=== PATIENT | female | born 1965 | race Caucasian/White ===

== ENCOUNTER 2016-08-01 19:05 | Emergency (ER) | payer OTHER ==
[~2016-08-01] VITALS: Ht 165.1 cm; Wt 98.0 kg
[~2016-08-01 19:05] MED LIST: ALBU1AER9 INH; BND25 PO; CETI10TA84 PO; EPIPEN0.3 M1 IM; OMEP40CA36 PO; QVRINH40 INH; TOPI100T34 PO; TRIA3AER NAE; [UNRECOGNIZED DRUG - CODE] OPB
[2016-08-01] MEDS ORDERED: SODIUM CHLORIDE 0.9% 1000ML 1,000 ML IV STA (19:12)
--- NOTE | 2016-08-01 19:21 | EMERGENCY ROOM VISIT NOTE ---
History Report prepared by Jing: Jorge Pinto Under the Supervision of: Dr. Rocky Love D.O. First contact with patient: 19:07 Chief Complaint: SHORTNESS OF BREATH Stated Complaint: SOB History of Present Illness The patient is a 51 year old female who presents to the Emergency Room via with complaints of persistent difficulty breathing for the past few days. The patient also complains of nausea, chest tightness and feeling like she is going to pass out. The patient notes that she has had cold-like symptoms for the past month and has been feeling fatigued since May. The patient is currently on Amoxicillin for her symptoms. Source of History: patient Onset: the past few days Position: other (global) Timing: other (persistent) Associated Symptoms: + fatigue, + nausea Note: Other associated symptoms: chest tightness, feeling like she is going to pass out, cold-like symptoms. Review of Systems See HPI for pertinent positives & negatives. A total of 10 systems reviewed and were otherwise negative. Past Medical & Surgical Medical Problems: (1) Seizure (2) Vertigo Family History Diabetes mellitus FH: heart disease Social History Smoking Status: Never Smoker Alcohol Use: none Drug Use: none Marital Status: Current/Historical Medications Scheduled Albuterol Hfa (Ventolin Hfa), 2-4 PUFFS INH Q6H Cetirizine Hcl (Zyrtec), 10 MG PO DAILY Diclofenac Sodium (Voltaren), 75 MG PO BID Diphenhydramine Hcl (Benadryl), 25 MG PO Q4H Divalproex Sodium (Divalproex Sodium Dr), 1 TAB PO DAILY Epinephrine (Epipen), 0.3 MG IM UD Ergocalciferol (Vitamin D 54495 Unit), 50,000 UNIT PO WK Fluticasone Propionate (Fluticasone Propionate), 2 SPRAYS NEB DAILY Levothyroxine Sodium (Levothyroxine Sodium), 1 TAB PO DAILY Pantoprazole (Protonix), 40 MG PO DAILY Ranitidine (Zantac), 150 MG PO BID Scheduled PRN Dextromethorphan-Guaifenesin (Mucinex Dm), 1 TAB PO Q12 PRN for . Miscellaneous Medications Homeopathic Products (Similasan Stye Eye Relief), 1 DROP OPB Topiramate (Topamax), 100 MG PO Allergies Coded Allergies: Sulfa Drugs (Verified Allergy, Intermediate, GI SYMPTOMS, 08/01/16) Physical Exam Vital Signs Date Time Temp Pulse Resp B/P Pulse Ox O2 Delivery O2 Flow Rate FiO2 08/01/16 22:48 78 18 130/72 98 08/01/16 21:32 71 20 136/86 100 Room Air 08/01/16 20:15 69 18 152/104 100 Room Air 08/01/16 19:38 61 147/75 72 166/89 75 174/102 08/01/16 19:31 67 08/01/16 19:26 36.8 62 18 162/89 100 Room Air 08/01/16 19:22 100 Room Air 08/01/16 19:22 100 Room Air 08/01/16 19:22 100 Room Air Physical Exam GENERAL: Patient is awake alert in no acute distress patient is resting comfortably and showing no signs of anxiety EYES: The conjunctivae are clear. The pupils are round and reactive. EARS, NOSE, MOUTH AND THROAT: The nose is without any evidence of any deformity. Mucous membranes are moist tongue is midline NECK: The neck is nontender and supple. RESPIRATORY: Normal respiratory effort is noted there is no evidence of wheezing rhonchi or rales CARDIOVASCULAR: Regular rate and rhythm noted there no murmurs rubs or gallops normal S1 normal S2 GASTROINTESTINAL: The abdomen is soft. Bowel sounds are present in all quadrants. Abdomen is nontender MUSCULOSKELETAL/EXTREMITIES: There is no evidence of gross deformity full range of motion is noted in the hips and shoulders SKIN: There is no obvious evidence of any rash. There are no petechiae, pallor or cyanosis noted. NEUROLOGIC: Patient is awake alert and oriented x3 Medical Decision & Procedures ER Provider Diagnostic Interpretation: X-ray results as stated below per interpretation by me and the radiologist. CHEST ONE VIEW PORTABLE CLINICAL HISTORY: EVALUATE RESPIRATORY DISTRESS. DYSPNEA dyspnea COMPARISON STUDY: 07/18/2015 FINDINGS: The bones soft tissues and hemidiaphragms are normal. The cardiomediastinal silhouette is normal. The lungs are clear. The pulmonary vasculature is normal. IMPRESSION: Negative chest. Electronically signed by: Jhony Madrigal M.D. 08/01/2016 7:36 PM Dictated Date/Time: 08/01/2016 7:35 PM Laboratory Results 08/01/16 19:50 Red Blood Count 4.71, Mean Corpuscular Volume 77.7, Mean Corpuscular Hemoglobin 26.1, Mean Corpuscular Hemoglobin Concent 33.6, Mean Platelet Volume 10.8, Neutrophils (%) (Auto) 52.2, Lymphocytes (%) (Auto) 37.0, Monocytes (%) (Auto) 8.6, Eosinophils (%) (Auto) 1.8, Basophils (%) (Auto) 0.2, Neutrophils # (Auto) 2.91, Lymphocytes # (Auto) 2.06, Monocytes # (Auto) 0.48, Eosinophils # (Auto) 0.10, Basophils # (Auto) 0.01 08/01/16 19:50 Test 08/01/16 19:50 08/01/16 19:59 White Blood Count 5.57 K/uL (4.8-10.8) Red Blood Count 4.71 M/uL (4.2-5.4) Hemoglobin 12.3 g/dL (12.0-16.0) Hematocrit 36.6 % (37-47) Mean Corpuscular Volume 77.7 fL (80-100) Mean Corpuscular Hemoglobin 26.1 pg (25-34) Mean Corpuscular Hemoglobin Concent 33.6 g/dl (32-36) Platelet Count 210 K/uL (130-400) Mean Platelet Volume 10.8 fL (7.4-10.4) Neutrophils (%) (Auto) 52.2 % Lymphocytes (%) (Auto) 37.0 % Monocytes (%) (Auto) 8.6 % Eosinophils (%) (Auto) 1.8 % Basophils (%) (Auto) 0.2 % Neutrophils # (Auto) 2.91 K/uL (1.4-6.5) Lymphocytes # (Auto) 2.06 K/uL (1.2-3.4) Monocytes # (Auto) 0.48 K/uL (0.11-0.59) Eosinophils # (Auto) 0.10 K/uL (0-0.5) Basophils # (Auto) 0.01 K/uL (0-0.2) RDW Standard Deviation 38.0 fL (36.4-46.3) RDW Coefficient of Variation 13.4 % (11.5-14.5) Immature Granulocyte % (Auto) 0.2 % Immature Granulocyte # (Auto) 0.01 K/uL (0.00-0.02) Prothrombin Time 10.5 SECONDS (9.0-12.0) Prothromb Time International Ratio 1.0 (0.9-1.1) Activated Partial Thromboplast Time 27.5 SECONDS (21.0-31.0) Partial Thromboplastin Ratio 1.1 Anion Gap 10.0 mmol/L (3-11) Est Creatinine Clear Calc Drug Dose 96.5 ml/min Estimated GFR () 99.8 Estimated GFR (Non- 86.1 BUN/Creatinine Ratio 9.5 (10-20) Calcium Level 8.3 mg/dl (8.5-10.1) Total Bilirubin 0.3 mg/dl (0.2-1) Aspartate Amino Transf (AST/SGOT) 11 U/L (15-37) Alanine Aminotransferase (ALT/SGPT) 23 U/L (12-78) Alkaline Phosphatase 48 U/L (45-117) Total Creatine Kinase 100 U/L (26-192) Creatine Kinase MB 1.7 ng/ml (0.5-3.6) Creatine Kinase MB Ratio 1.7 (0-3.0) Troponin I < 0.015 ng/ml (0-0.045) Pro-B-Type Natriuretic Peptide 69 pg/ml (0-900) Total Protein 7.5 gm/dl (6.4-8.2) Albumin 3.8 gm/dl (3.4-5.0) Globulin 3.7 gm/dl (2.5-4.0) Albumin/Globulin Ratio 1.0 (0.9-2) Bedside D-Dimer 196 ng/mlFEU (0-450) Laboratory results per my review. Medications Administered Medications (Trade) Dose Ordered Sig/Saige Route Start Time Stop Time Status Last Admin Dose Admin Sodium Chloride (Nss 1000ml) 1,000 ml @ 999 mls/hr Q1H1M STAT IV 08/01/16 19:12 08/01/16 20:12 DC 08/01/16 19:37 999 MLS/HR ECG Indication: SOB/dyspnea Rate (beats per minute): 63 Rhythm: normal sinus Findings: no ectopy, other (no acute ST segment abnormality, LVH was noted by voltage criteria) Change: no significant change (when compared to EKG from November 04, 2011) ED Course 1910: The patient was evaluated in room C10. A complete history and physical examination were performed. 1911: Ordered NSS 1000 ml @ 999 mls/hr IV. 2020: At this time, I reevaluated the patient and she is resting comfortably. Medical Decision Differential diagnosis: Etiologies such as infections, reactive airway disease, pneumonia, pneumothorax , COPD, CHF, cardiac ischemia, pulmonary embolism, musculoskeletal, gastrointestinal, as well as others were entertained. Nursing notes reviewed. The patient is a 51-year-old female who presented to emergency department for an evaluation of shortness of breath and dizziness. The patient's oxygen saturation was normal. I discussed the patient's laboratory and radiographic studies with her. She was not tachycardic or hypoxic. Her EKG did not show any acute ischemic changes and her cardiac biomarkers were negative. The patient was treated with normal saline solution in the emergency department. On subsequent reevaluation she was feeling much better. She was resting comfortably. She was encouraged to rest and avoid any strenuous activity. She was also encouraged to continue all medications as prescribed. She was also encouraged to follow-up with her primary care physician as soon as possible but return to the emergency Department immediately if symptoms change worsen or need arises. Impression Primary Impression: Shortness of breath Additional Impression: Dizziness Scribe Attestation The scribe's documentation has been prepared under my direction and personally reviewed by me in its entirety. I confirm that the note above accurately reflects all work, treatment, procedures, and medical decision making performed by me. Departure Information Dispostion Home / Self-Care Referrals Eliazar Winston M.D. (PCP) Forms HOME CARE DOCUMENTATION FORM, IMPORTANT VISIT INFORMATION Patient Instructions ED Dizziness [facility], ED Dyspnea Shortness of Breath, My [facility] Additional Instructions Call your family to schedule a follow-up appointment. Rest and avoid any strenuous activity. Continue all medications as prescribed. Problem Qualifiers
[2016-08-01 19:22] VITALS: O2SAT 100
[2016-08-01 19:26] VITALS: TEMP 36.8; Ht 165.1 cm; Wt 98.0 kg
--- NOTE | 2016-08-01 19:37 | DIAGNOSTIC IMAGING REPORT ---
CHEST ONE VIEW PORTABLE CLINICAL HISTORY: EVALUATE RESPIRATORY DISTRESS. DYSPNEA dyspnea COMPARISON STUDY: 07/18/2015 FINDINGS: The bones soft tissues and hemidiaphragms are normal. The cardiomediastinal silhouette is normal. The lungs are clear. The pulmonary vasculature is normal. IMPRESSION: Negative chest. Electronically signed by: Jhony Madrigal M.D. 08/01/2016 7:36 PM Dictated Date/Time: 08/01/2016 7:35 PM
[2016-08-01] MEDS ORDERED: TOPI100T20 PO (20:05)
[2016-08-01] MEDS ORDERED: DICL75TA2 PO (20:05)
[2016-08-01] MEDS ORDERED: ZNTT/150 PO (20:05)
[2016-08-01] MEDS ORDERED: VNTHFA/IN INH (20:05)
[2016-08-01] MEDS ORDERED: [UNRECOGNIZED DRUG - CODE] OPB (20:05)
[2016-08-01] MEDS ORDERED: DPKEC250 PO (20:05)
[2016-08-01] MEDS ORDERED: CETI10TA10 PO (20:05)
[2016-08-01] MEDS ORDERED: LEVO25TA5 PO (20:05)
[2016-08-01] MEDS ORDERED: FLNIN NEB (20:05)
[2016-08-01] MEDS ORDERED: ERGO500037 PO (20:05)
[2016-08-01] MEDS ORDERED: DEXT30TA7 PO (20:05)
[2016-08-01] MEDS ORDERED: PANT40TA PO (20:05)
[2016-08-01] MEDS ORDERED: BND25 PO (20:05)
[2016-08-01] MEDS ORDERED: EPP3/2 IM (20:05)
[2016-08-01 20:16] LABS: PARTIAL THROMBOPLASTIN RATIO 1.1; PROTHROMBIN TIME (PATIENT) 10.5 SECONDS (9.0-12.0)
[2016-08-01 20:28] LABS: ALKALINE PHOSPHATASE 48 U/L (45-117); ALT/SGPT 23 U/L (12-78); AST/SGOT 11 U/L (15-37); BLOOD UREA NITROGEN 8 mg/dl (7-18); BUN/CREATININE RATIO 9.5 (10-20); CALCIUM 8.3 mg/dl (8.5-10.1); CARBON DIOXIDE 24 mmol/L (21-32); CHLORIDE 110 mmol/L (98-107); CREATININE 0.79 mg/dl (0.60-1.20); GLUCOSE 90 mg/dl (70-99); POTASSIUM 3.4 mmol/L (3.5-5.1); SODIUM 144 mmol/L (136-145)
[2016-08-01 20:29] LABS: CKMB/CK RATIO 1.7 (0-3.0)
[2016-08-01 21:20] LABS: HEMATOCRIT 36.6 % (37-47); MEAN CELL VOLUME 77.7 fL (80-100); MEAN CORPUSCULAR HEMOGLOBIN 26.1 pg (25-34); MEAN CORPUSCULAR HGB CONC 33.6 g/dl (32-36); MEAN PLATELET VOLUME 10.8 fL (7.4-10.4); PLATELET COUNT 210 K/uL (130-400); RED BLOOD COUNT 4.71 M/uL (4.2-5.4); WHITE BLOOD COUNT 5.57 K/uL (4.8-10.8)
[2016-08-01 21:21] LABS: BASO % 0.2 %; BASO ABS # 0.01 K/uL (0-0.2); COMPLETE YES; EOS % 1.8 %; IG% 0.2 %; LYMPH ABS # 2.06 K/uL (1.2-3.4); MONO % 8.6 %; NEUT % 52.2 %
[2016-08-01 22:48] VITALS: BP 130/72; PULSE 78; O2SAT 98
== END 2016-08-01 22:49 | disposition home or self-care (01) ==
LOC: EDBD 19:05 → C.EDC 19:06
DX: R06.02 Shortness of breath (principal); R42 Dizziness and giddiness

== ENCOUNTER 2023-09-01 22:56 | Inpatient (IN) ==
--- NOTE | 2023-09-01 23:36 | Emergency Department Note ---
Impression & Plan Syncope, Confusion, Hypokalemia ED Provider Note NAME: MITCHEL AVILA AGE: 58 SEX: F : 1965 ARRIVES VIA: Ambulance INFORMANT: Patient ED PROVIDER(S): Blair Lim DO CHIEF COMPLAINT: seizure HPI: Patient is a 58-year-old female with a past medical history of seizures, concussion, hypothyroidism, idiopathic polyneuropathy, myoclonic jerking who presents to the ER as she had 2 episodes each 15 minutes where she became unresponsive and limp. Prior to that she was having intermittent jerking of her arms. She has had several episodes of these arm jerking over the past several days. She denies any headache but notes that the light does bother her. No neck pain. No fevers. No chest pain or shortness of breath. No nausea, vomiting, or diarrhea. No dysuria, urgency, or frequency. ADDITIONAL HISTORY OBTAINED: Per HPI Chronic Medical/Social Conditions Affecting Care: Per HPI PAST MEDICAL HISTORY:See Below PAST SURGICAL HISTORY:See Below FAMILY HISTORY:See Below SOCIAL HISTORY:See Below HOME MEDICATIONS:See Below ALLERGIES:See Below VITALS:See Below PHYSICAL EXAMINATION: GENERAL: Sitting up in bed, alert, well appearing, well nourished, no distress, non-toxic EYE EXAM: normal conjunctiva. PERRL and EOM's intact. OROPHARYNX: no exudate, no erythema, lips, buccal mucosa, and tongue normal and mucous membranes are moist NECK: supple, no nuchal rigidity, no adenopathy, non-tender LUNGS: Clear to auscultation. Normal chest wall mechanics HEART: no murmurs, S1 normal and S2 normal ABDOMEN: abdomen soft, non-tender, normo-active bowel sounds, no masses, no rebound or guarding. UPPER EXTREMITIES: upper extremities are grossly normal. LOWER EXTREMITIES: No pitting edema. NEURO EXAM: Normal sensorium, cranial nerves II-XII intact, normal speech, no weakness of arms, no weakness of legs. No drift. Finger to nose intact. Gross sensation intact. MEDICAL DECISION MAKING: Patient is a 58-year-old female who presents ER for the above-stated complaint. External records reviewed by Dr. Ortega from neurology that show she has atypical seizures. Labs show no significant leukocytosis or anemia. BMP with mild hypokalemia 3.3. This was repleted 20 mill equivalents to the IV. LFTs bilirubin troponin was negative. Lipase was unremarkable. CO2 was not low which I would expect with a seizure. Question if this was syncope. Patient was given 2 g of Keppra with a history of seizures. She did not bite her tongue or lose control of her bowel or bladder. CT head was negative. EKG was nondiagnostic. She was given IV fluids. She is updated bedside. Discussed with the hospitalist for further evaluation management treatment. She was slightly hypoxic when sleeping and was consequently placed on 3 L nasal cannula. Consults/Care Managements Discussions: Per [facility] Triage Nursing notes reviewed. Limited review of prior medical records performed Vital Signs: reviewed and remarkable for HTN Differential diagnosis: Differential diagnosis includes etiologies such as vasovagal event, infection, hypoglycemia, electrolyte abnormalities, cardiac sources, intracerebral event, toxicologic, neurologic, as well as others were entertained. ER treatment provided: See below Diagnostics interpreted by me include EKG and cardiac monitoring as listed below: -Cardiac Monitoring: An order was placed for continuous cardiac monitoring. The monitor shows a rate of 88 with sinus rhythm. -ECG: Sinus rhythm rate 70 Normal axis No PVCs QTc 401 -Laboratory studies:Interpreted by me as stated above in MDM and shown below. Imaging studies: Xrays: As interpreted by me: Portable AP upright 1 view of the chest shows no focal infiltrate CTs show: CT head was negative Procedures:none Critical Care: None Past Med/Surg History Medical History (Updated 09/02/23 @ 01:26 by Blair Lim DO) Chronic vertigo Seizure Bilateral wrist pain Concussion Surgical History (Updated 02/10/22 @ 15:10 by Cori Faye) No history of previous surgery Family History (Updated 12/22/19 @ 10:34 by Cori Faye) Mother No pertinent family history Social History Smoking Status: Never smoker marital status: Current Living Situation: Spouse Feels Safe at Home: Yes Allergies Allergies Allergy/AdvReac Type Severity Reaction Status Date / Time Sulfa (Sulfonamide AdvReac Intermediate GI SYMPTOMS Verified 09/01/23 23:27 Antibiotics) various allergies Allergy Severe Anaphylaxis Uncoded 09/01/23 23:27 Home Meds Home Medications Medication Instructions Recorded Confirmed albuterol sulfate 90 mcg/actuation 2 - 4 puff inhalation Q6H PRN 08/14/18 09/01/23 aerosol inhaler (Ventolin HFA) Shortness Of Breath Or Wheezing cetirizine 10 mg tablet (Zyrtec) 10 mg PO QAM 08/14/18 09/01/23 epinephrine 0.3 mg/0.3 mL 0.3 mg IM Q3H PRN Anaphylaxis 08/14/18 09/01/23 injection, auto-injector (EpiPen) ergocalciferol (vitamin D2) 1,250 50,000 unit PO WK 08/14/18 09/01/23 mcg (50,000 unit) capsule (Vitamin D2) fluticasone propionate 50 2 spray intranasal QAM 08/14/18 09/01/23 mcg/actuation nasal spray,suspension (Flonase Allergy Relief) levothyroxine 25 mcg tablet 25 mcg PO QAM 08/14/18 09/01/23 pantoprazole 40 mg tablet,delayed 40 mg PO HS 08/14/18 09/01/23 release (Protonix) ranitidine HCl 150 mg tablet 150 mg PO BID 08/14/18 09/01/23 azelastine 137 mcg (0.1 %) nasal 1 sprays intranasal BID 12/22/19 09/01/23 spray aerosol fluticasone 250 mcg-salmeterol 50 1 puffs inhalation BID 12/22/19 09/01/23 mcg/dose blistr powdr for inhalation fluticasone propionate 110 1 puffs inhalation BID 12/22/19 09/01/23 mcg/actuation HFA aerosol inhaler atorvastatin 20 mg tablet 20 mg PO QPM dyslipidemia 07/15/21 09/01/23 meclizine 25 mg chewable tablet 25 mg PO DAILY PRN dizziness 02/06/22 09/01/23 (Bonine) diclofenac sodium 1 % topical gel 2 g topical QID PRN Pain 08/04/22 09/01/23 (Voltaren Arthritis Pain) diphenhydramine HCl 25 mg capsule 25 mg PO TID PRN 02/04/23 09/01/23 (Benadryl) ITCHING/RESTLESSNESS empagliflozin 10 mg tablet 10 mg PO DAILY 02/04/23 09/01/23 (Jardiance) famotidine 40 mg tablet 40 mg PO DAILY 02/04/23 09/01/23 lidocaine (PF) 40 mg/mL (4 %) 40 mg IM Q3MO 02/04/23 09/01/23 injection solution ondansetron 8 mg disintegrating 8 mg PO Q8H PRN NAUSEA/VOMITING 02/04/23 09/01/23 tablet losartan 25 mg tablet 50 mg PO DAILY 05/12/23 09/01/23 gabapentin 300 mg capsule 600 mg PO TID 09/01/23 09/01/23 Previous Rx's Medication Instructions Recorded topiramate 200 mg tablet 200 mg PO BID 90 days #180 tabs 08/31/23 Results & Data (ED) Vital Signs Vital Signs - 24 hr 09/01/23 23:05 09/01/23 23:05 09/01/23 23:05 Temperature 36.7 C Temperature Source Oral Pulse Rate 84 Pulse Rate [Finger] Respiratory Rate 22 Respiratory Effort / Characteristics Non-Labored Respiratory Depth Normal Respiratory Pattern Regular Blood Pressure 161/81 H Blood Pressure Mean 107 Pulse Oximetry 98 98 Oxygen Delivery Method Room Air Room Air Room Air Oxygen Flow Rate Sepsis Recent Fever Within 48 Hours No Sepsis New/Unexplained Change in Mental Status N/A Sepsis Action Taken by Nursing No Action Required 09/01/23 23:30 09/02/23 00:40 09/02/23 00:41 Temperature Temperature Source Pulse Rate Pulse Rate [Finger] 68 Respiratory Rate Respiratory Effort / Characteristics Respiratory Depth Respiratory Pattern Blood Pressure Blood Pressure Mean Pulse Oximetry 98 84 L 100 Oxygen Delivery Method Room Air Room Air Nasal Cannula Oxygen Flow Rate 3 Sepsis Recent Fever Within 48 Hours Sepsis New/Unexplained Change in Mental Status Sepsis Action Taken by Nursing 09/02/23 00:52 Temperature Temperature Source Pulse Rate 62 Pulse Rate [Finger] Respiratory Rate Respiratory Effort / Characteristics Respiratory Depth Respiratory Pattern Blood Pressure Blood Pressure Mean Pulse Oximetry Oxygen Delivery Method Oxygen Flow Rate Sepsis Recent Fever Within 48 Hours Sepsis New/Unexplained Change in Mental Status Sepsis Action Taken by Nursing Laboratory Data 09/01/23 23:14 09/01/23 23:14 Lab Results 09/01/23 Range/Units 23:14 WBC 6.29 (4.8-10.8) K/ul RBC 5.59 H (4.20-5.40) M/uL Hgb 14.3 (12.0-16.0) g/dl Hct 46.4 (37.0-47.0) % MCV 83.0 (80.0-100.0) fL MCH 25.6 (25.0-34.0) pg MCHC 30.8 L (32.0-36.0) g/dL RDW Std Deviation 41.1 (36.4-46.3) fL RDW Coeff of Faustino 13.7 (11.5-14.5) % Plt Count 200 (130-400) K/uL MPV 11.3 (9.4-12.4) fL Immature Gran % (Auto) 0.2 % Neut % (Auto) 64.1 % Lymph % (Auto) 27.5 % [place] % (Auto) 6.4 % Eos % (Auto) 1.3 % Baso % (Auto) 0.5 % Neut # (Auto) 4.04 (1.40-6.50) K/uL Lymph # (Auto) 1.73 (1.20-3.40) K/uL [place] # (Auto) 0.40 (0.11-0.59) K/uL Eos # (Auto) 0.08 (0.00-0.50) K/uL Baso # (Auto) 0.03 (0.00-0.20) K/uL Immature Gran # (Auto) 0.01 (0.01-0.20) K/uL Sodium 140 (136-145) mmol/L Potassium 3.3 L (3.5-5.1) mmol/L Chloride 106 (98-107) mmol/L Carbon Dioxide 25 (21-32) mmol/L Anion Gap 9 (3-11) BUN 16 (6-23) mg/dl Creatinine 0.99 (0.6-1.2) mg/dl Est Cr Clr Drug Dosing 68.0 ml/min Est GFR ( Amer) 72.3 ml/min Est GFR (Non-Af Amer) 62.4 ml/min BUN/Creatinine Ratio 16.2 (10-20) Glucose 125 H (70-99(Fasting)) mg/dl Calcium 9.3 (8.6-10.3) mg/dl Total Bilirubin 0.4 (0.2-1.0) mg/dl AST 20 (13-39) U/L ALT 19 (7-52) U/L Alkaline Phosphatase 58 (34-104) U/L Troponin I High Sens 4.1 (0-14) pg/ml Total Protein 7.8 (6.0-8.3) gm/dl Albumin 4.7 (3.4-5.0) gm/dl Globulin 3.1 (2.5-4.0) gm/dl Albumin/Globulin Ratio 1.5 (0.9-2) Lipase 21 (11-82) U/L Administered Medications Discontinued Medications Sodium Chloride (Nss) 1,000 mls @ 999 mls/hr IV .Q1H1M ONE Stop: 09/02/23 00:32 Last Admin: 09/02/23 00:01 Dose: 999 mls/hr Documented By: IDD Levetiracetam (Levetiracetam 500 Mg/5 Ml Vial) 1,950 mg 20 mg/kg (1950 mg) IV NOW STA Stop: 09/01/23 23:33 Last Admin: 09/02/23 00:01 Dose: 1,950 mg Documented By: IDD Potassium Chloride (Potassium Chloride Crtab 20 Meq Tabcr) 40 meq PO NOW STA Stop: 09/02/23 00:20 Last Admin: 09/02/23 01:03 Dose: Not Given Documented By: IDD Imaging Data Radiologist's Impression: Head CT 09/01/23 23:32 Exam(s): CT HEAD Without Contrast EXAM: CT Head Without Intravenous Contrast CLINICAL HISTORY: Reason for exam: seizure. TECHNIQUE: Axial computed tomography images of the head/brain without intravenous contrast. Automated exposure control was utilized for the study. A dose lowering technique was utilized adhering to the principles of ALARA. COMPARISON: No relevant prior studies available. FINDINGS: No acute intracranial hemorrhage. No midline shift or mass effect. The territorial ordoñez-white matter differentiation is maintained throughout. The ventricles and sulci are commensurate with age. The visualized orbits appear grossly unremarkable. The calvarium is intact. The visualized paranasal sinuses and mastoid air cells are grossly clear. IMPRESSION: No acute intracranial hemorrhage, midline shift, or mass effect. Electronically signed by: Chris Escobedo MD 09/02/23 00:50 AM Discharge Plan Visit Data Chief Complaint: Seizure Stated Complaint: PSEUDOSEIZURES ED Provider: Blair Lim Discharge Problem: Syncope, Confusion, Hypokalemia Forms Stand Alone Forms: My [facility] Prescriptions Prescriptions: No Action topiramate 200 mg tablet 200 mg PO BID 90 Days Qty: 180 1RF atorvastatin 20 mg tablet 20 mg PO QPM meclizine [Bonine] 25 mg tablet,chewable 25 mg PO DAILY PRN (Reason: dizziness) diclofenac sodium [Voltaren Arthritis Pain] 1 % gel 2 g topical QID PRN (Reason: Pain) Jardiance 10 mg tablet 10 mg PO DAILY famotidine 40 mg tablet 40 mg PO DAILY ondansetron 8 mg tablet,disintegrating 8 mg PO Q8H PRN (Reason: NAUSEA/VOMITING) diphenhydramine HCl [Benadryl] 25 mg capsule 25 mg PO TID PRN (Reason: ITCHING/RESTLESSNESS) lidocaine (PF) 40 mg/mL (4 %) solution 40 mg IM Q3MO losartan 25 mg tablet 50 mg PO DAILY fluticasone propionate 110 mcg/actuation HFA aerosol inhaler 1 puffs INH BID azelastine 137 mcg (0.1 %) aerosol,spray 1 sprays INTNAS BID fluticasone propion-salmeterol 250-50 mcg/dose blister with device 1 puffs INH BID cetirizine [Zyrtec] 10 mg Tablet 10 mg PO QAM levothyroxine 25 mcg Tablet 25 mcg PO QAM pantoprazole [Protonix] 40 mg Tablet,Delayed Release (Dr/Ec) 40 mg PO HS ranitidine HCl 150 mg Tablet 150 mg PO BID ergocalciferol (vitamin D2) [Vitamin D2] 50,000 unit Capsule 50,000 unit PO WK Rx Instructions: Thursday epinephrine [EpiPen] 0.3 mg/0.3 mL Auto-Injector 0.3 mg IM Q3H PRN (Reason: Anaphylaxis) albuterol sulfate [Ventolin HFA] 90 mcg/actuation Hfa Aerosol Inhaler 2 - 4 puff INHALATION Q6H PRN (Reason: Shortness Of Breath Or Wheezing) fluticasone propionate [Flonase Allergy Relief] 50 mcg/actuation [place],Suspension 2 spray INTRANASAL QAM gabapentin 300 mg capsule 600 mg PO TID Referrals Referrals: Eliazar Winston MD [Primary Care Provider] - Discharge Problem: Syncope Qualifiers: Syncope type: unspecified Qualified Code(s): R55 - Syncope and collapse
[2023-09-01 23:38] LABS: Basophils # (auto) 0.03 K/uL (0.00-0.20); Basophils % (auto) 0.5 %; Eosinophils # (auto) 0.08 K/uL (0.00-0.50); Eosinophils % (auto) 1.3 %; Hematocrit (blood only) 46.4 % (37.0-47.0); Hemoglobin 14.3 g/dl (12.0-16.0); Immature Granulocytes # (auto) 0.01 K/uL (0.01-0.20); Immature Granulocytes % (auto) 0.2 %; Lymphocytes # (auto) 1.73 K/uL (1.20-3.40); Lymphocytes % (auto) 27.5 %; Mean Corpuscular Hemoglobin 25.6 pg (25.0-34.0); Mean Corpuscular Hgb Conc 30.8 g/dL (32.0-36.0); Mean Platelet Volume 11.3 fL (9.4-12.4); Monocytes % (auto) 6.4 %; Neutrophils # (auto) 4.04 K/uL (1.40-6.50); Neutrophils % (auto) 64.1 %; Platelet Count 200 K/uL (130-400); RDW Coefficient of Variation 13.7 % (11.5-14.5); RDW Standard Deviation 41.1 fL (36.4-46.3); Red Blood Count 5.59 M/uL (4.20-5.40); White Blood Count 6.29 K/ul (4.8-10.8)
[2023-09-01 23:56] LABS: Albumin Globulin Ratio 1.5 (0.9-2); Albumin Level 4.7 gm/dl (3.4-5.0); BUN Creatinine Ratio 16.2 (10-20); Bilirubin,Total 0.4 mg/dl (0.2-1.0); Calcium 9.3 mg/dl (8.6-10.3); Est GFR (African American) 72.3 ml/min; Est GFR (Non-African American) 62.4 ml/min; Globulin 3.1 gm/dl (2.5-4.0); Potassium 3.3 mmol/L (3.5-5.1); Total Protein 7.8 gm/dl (6.0-8.3)
[2023-09-02] MEDS: levETIRAcetam 500 MG/5 ML VIAL IV STA (00:01)
[2023-09-02] MEDS: SODIUM CHLORIDE 0.9% 1,000 ML IV ONE (00:01)
[2023-09-02 00:02] LABS: Troponin I High Sensitivity 4.1 pg/ml (0-14)
--- NOTE | 2023-09-02 00:51 | CT Scan Report ---
Exam(s): CT HEAD Without Contrast EXAM: CT Head Without Intravenous Contrast CLINICAL HISTORY: Reason for exam: seizure. TECHNIQUE: Axial computed tomography images of the head/brain without intravenous contrast. Automated exposure control was utilized for the study. A dose lowering technique was utilized adhering to the principles of ALARA. COMPARISON: No relevant prior studies available. FINDINGS: No acute intracranial hemorrhage. No midline shift or mass effect. The territorial ordoñez-white matter differentiation is maintained throughout. The ventricles and sulci are commensurate with age. The visualized orbits appear grossly unremarkable. The calvarium is intact. The visualized paranasal sinuses and mastoid air cells are grossly clear. IMPRESSION: No acute intracranial hemorrhage, midline shift, or mass effect. Electronically signed by: Chris Escobedo MD 09/02/23 00:50 AM
[2023-09-02] MEDS: POTASSIUM CHLORIDE CRTAB 20 MEQ TABCR PO STA (01:03)
[2023-09-02] MEDS: POTASSIUM CHLORIDE / WTR 10 MEQ/100 ML PLCT IV SCH (01:37)
--- NOTE | 2023-09-02 02:46 | History & Physical Report ---
Date of Service September 02, 2023 Assessment & Plan (1) Seizure: Plan: 58-year-old female with past medical history significant for type 2 diabetes, asthma mild persistent, allergic rhinitis, nocturnal hypoxemia, obesity, GERD, contact dermatitis and eczema, migraines, seizure disorder, vertigo, allergic to nuts, depression with anxiety, light sensitivity, presents with seizures. Patient states since yesterday and today she had 3 episodes of seizures. Her in the room. Today she had [id number] seizures. Where she shook all over the body. And she was unresponsive for about 20 minutes. And she was Somewhat confused after that. Patient is currently alert and awake. Able to answer questions. States she has some trouble concentrating. No recent fevers. She states she has headaches on and off. Gets chest pains on and off. Shortness of breath on and off. Nausea on and off. Some runny nose. Appetite is okay. Currently no abdominal pain. Normal bowel and bladder movements. Ambulates with a walker. Afebrile. History of seizures On gabapentin and Topamax Given IV Keppra in the ER Will continue IV Keppra 500 mg twice daily Seizure precautions EEG Consult neurology in a.m. Telemetry Diabetes Sliding scale Will monitor Obesity Nocturnal hypoxia Oxygen sats dropped to 85% while she was sleeping Oxygen supplementation while sleeping sys doesn't use oxygen at home Needs nocturnal pulse ox study before discharge Need sleep study GERD Famotidine and Protonix Asthma Continue home inhalers Hyperlipidemia On statin -Hypertension On losartan Will monitor Hypothyroidism On Synthyroid DVT prophylaxis Lovenox Disposition Telemetry Full code History of Present Illness Chief Complaint: 58-year-old female with past medical history significant for type 2 diabetes, asthma mild persistent, allergic rhinitis, nocturnal hypoxemia, obesity, GERD, contact dermatitis and eczema, migraines, seizure disorder, vertigo, allergic to nuts, depression with anxiety, light sensitivity, presents with seizures. Patient states since yesterday and today she had 3 episodes of seizures. Her in the room. Today she had pyug-ix-piqo seizures. Where she shook all over the body. And she was unresponsive for about 20 minutes. And she was Somewhat confused after that. Patient is currently alert and awake. Able to answer questions. States she has some trouble concentrating. No recent fevers. She states she has headaches on and off. Gets chest pains on and off. Shortness of breath on and off. Nausea on and off. Some runny nose. Appetite is okay. Currently no abdominal pain. Normal bowel and bladder movements. Ambulates with a walker. Afebrile. Past medical history. As mentioned above Past surgical history. Left carpal tunnel surgery. Colonoscopy and EGD. Left shoulder arthroscopy. Right shoulder arthroscopy. Vaginal hysterectomy. Social history. . No smoking. No alcohol use. No drug use. Family history. Brother has asthma. Son has asthma. Father had cancer Primary Care Provider: Eliazar Winston MD Allergies Allergy/AdvReac Type Severity Reaction Status Date / Time Sulfa (Sulfonamide AdvReac Intermediate GI SYMPTOMS Verified 09/01/23 23:27 Antibiotics) various allergies Allergy Severe Anaphylaxis Uncoded 09/01/23 23:27 Home Medications Medication Instructions Recorded Confirmed Type albuterol sulfate 90 mcg/actuation 2 - 4 puff inhalation Q6H PRN 08/14/18 09/01/23 History aerosol inhaler (Ventolin HFA) Shortness Of Breath Or Wheezing cetirizine 10 mg tablet (Zyrtec) 10 mg PO QAM 08/14/18 09/01/23 History epinephrine 0.3 mg/0.3 mL 0.3 mg IM Q3H PRN Anaphylaxis 08/14/18 09/01/23 History injection, auto-injector (EpiPen) ergocalciferol (vitamin D2) 1,250 50,000 unit PO WK 08/14/18 09/01/23 History mcg (50,000 unit) capsule (Vitamin D2) fluticasone propionate 50 2 spray intranasal QAM 08/14/18 09/01/23 History mcg/actuation nasal spray,suspension (Flonase Allergy Relief) levothyroxine 25 mcg tablet 25 mcg PO QAM 08/14/18 09/01/23 History pantoprazole 40 mg tablet,delayed 40 mg PO HS 08/14/18 09/01/23 History release (Protonix) ranitidine HCl 150 mg tablet 150 mg PO BID 08/14/18 09/01/23 History azelastine 137 mcg (0.1 %) nasal 1 sprays intranasal BID 12/22/19 09/01/23 History spray aerosol fluticasone 250 mcg-salmeterol 50 1 puffs inhalation BID 12/22/19 09/01/23 History mcg/dose blistr powdr for inhalation fluticasone propionate 110 1 puffs inhalation BID 12/22/19 09/01/23 History mcg/actuation HFA aerosol inhaler atorvastatin 20 mg tablet 20 mg PO QPM dyslipidemia 07/15/21 09/01/23 History meclizine 25 mg chewable tablet 25 mg PO DAILY PRN dizziness 02/06/22 09/01/23 History (Bonine) diclofenac sodium 1 % topical gel 2 g topical QID PRN Pain 08/04/22 09/01/23 History (Voltaren Arthritis Pain) diphenhydramine HCl 25 mg capsule 25 mg PO TID PRN 02/04/23 09/01/23 History (Benadryl) ITCHING/RESTLESSNESS empagliflozin 10 mg tablet 10 mg PO DAILY 02/04/23 09/01/23 History (Jardiance) famotidine 40 mg tablet 40 mg PO DAILY 02/04/23 09/01/23 History lidocaine (PF) 40 mg/mL (4 %) 40 mg IM Q3MO 02/04/23 09/01/23 History injection solution ondansetron 8 mg disintegrating 8 mg PO Q8H PRN NAUSEA/VOMITING 02/04/23 09/01/23 History tablet losartan 25 mg tablet 50 mg PO DAILY 05/12/23 09/01/23 History topiramate 200 mg tablet 200 mg PO BID 90 days #180 tabs 08/31/23 09/01/23 Rx gabapentin 300 mg capsule 600 mg PO TID 09/01/23 09/01/23 History Past Med/Surg History Medical History (Updated 09/02/23 @ 02:42 by Mehul Reyes MD) Chronic vertigo Seizure Bilateral wrist pain Concussion Surgical History (Updated 02/10/22 @ 15:10 by Cori Faye) No history of previous surgery Family History (Updated 12/22/19 @ 10:34 by Cori Faye) Mother No pertinent family history Social History Smoking Status: Never smoker marital status: Current Living Situation: Spouse Feels Safe at Home: Yes Review of Systems Review of Systems: All systems reviewed & are unremarkable except as noted in HPI & below Physical Exam Physical Exam: General- Not in distress Head- atraumatic Eyes- PERRL. ENT- oropharynx clear Neck- supple, no JVD. Lungs- clear to auscultation , no wheezing or crackles. Heart- regular rhythm; no murmur, no gallop. Abdomen- normal bowel sounds, soft, nontender, no distension. Extremities- no pretibial edema, no erythema seen Neuro- alert, oriented ; PERRL no facial palsy; no dysarthria; moves extremities Results & Data Results & Data Vital Signs (Past 12 Hours) Vital Signs Temp Pulse Pulse Resp BP Pulse Ox O2 Del Method 09/02/23 00:52 62 09/02/23 00:41 68 100 Nasal Cannula 09/02/23 00:40 84 L Room Air 09/01/23 23:30 98 Room Air 09/01/23 23:05 Room Air 09/01/23 23:05 98 Room Air 09/01/23 23:05 36.7 C 84 22 161/81 H 98 Room Air O2 Flow Rate 09/02/23 00:52 09/02/23 00:41 3 09/02/23 00:40 09/01/23 23:30 09/01/23 23:05 09/01/23 23:05 09/01/23 23:05 Diagnostic Findings Laboratory Results WBC 6.29 K/ul (4.8-10.8) 09/01/23 23:14 RBC 5.59 M/uL (4.20-5.40) H 09/01/23 23:14 Hgb 14.3 g/dl (12.0-16.0) 09/01/23 23:14 Hct 46.4 % (37.0-47.0) 09/01/23 23:14 MCV 83.0 fL (80.0-100.0) 09/01/23 23:14 MCH 25.6 pg (25.0-34.0) 09/01/23 23:14 MCHC 30.8 g/dL (32.0-36.0) L 09/01/23 23:14 RDW Std Deviation 41.1 fL (36.4-46.3) 09/01/23 23:14 RDW Coeff of Faustino 13.7 % (11.5-14.5) 09/01/23 23:14 Plt Count 200 K/uL (130-400) 09/01/23 23:14 MPV 11.3 fL (9.4-12.4) 09/01/23 23:14 Immature Gran % (Auto) 0.2 % 09/01/23 23:14 Neut % (Auto) 64.1 % 09/01/23 23:14 Lymph % (Auto) 27.5 % 09/01/23 23:14 [place] % (Auto) 6.4 % 09/01/23 23:14 Eos % (Auto) 1.3 % 09/01/23 23:14 Baso % (Auto) 0.5 % 09/01/23 23:14 Neut # (Auto) 4.04 K/uL (1.40-6.50) 09/01/23 23:14 Lymph # (Auto) 1.73 K/uL (1.20-3.40) 09/01/23 23:14 [place] # (Auto) 0.40 K/uL (0.11-0.59) 09/01/23 23:14 Eos # (Auto) 0.08 K/uL (0.00-0.50) 09/01/23 23:14 Baso # (Auto) 0.03 K/uL (0.00-0.20) 09/01/23 23:14 Immature Gran # (Auto) 0.01 K/uL (0.01-0.20) 09/01/23 23:14 Sodium 140 mmol/L (136-145) 09/01/23 23:14 Potassium 3.3 mmol/L (3.5-5.1) L 09/01/23 23:14 Chloride 106 mmol/L (98-107) 09/01/23 23:14 Carbon Dioxide 25 mmol/L (21-32) 09/01/23 23:14 Anion Gap 9 (3-11) 09/01/23 23:14 BUN 16 mg/dl (6-23) 09/01/23 23:14 Creatinine 0.99 mg/dl (0.6-1.2) 09/01/23 23:14 Est Cr Clr Drug Dosing 68.0 ml/min 09/01/23 23:14 Est GFR ( Amer) 72.3 ml/min 09/01/23 23:14 Est GFR (Non-Af Amer) 62.4 ml/min 09/01/23 23:14 BUN/Creatinine Ratio 16.2 (10-20) 09/01/23 23:14 Glucose 125 mg/dl (70-99(Fasting)) H 09/01/23 23:14 Calcium 9.3 mg/dl (8.6-10.3) 09/01/23 23:14 Total Bilirubin 0.4 mg/dl (0.2-1.0) 09/01/23 23:14 AST 20 U/L (13-39) 09/01/23 23:14 ALT 19 U/L (7-52) 09/01/23 23:14 Alkaline Phosphatase 58 U/L (34-104) 09/01/23 23:14 Troponin I High Sens 4.1 pg/ml (0-14) 09/01/23 23:14 Total Protein 7.8 gm/dl (6.0-8.3) 09/01/23 23:14 Albumin 4.7 gm/dl (3.4-5.0) 09/01/23 23:14 Globulin 3.1 gm/dl (2.5-4.0) 09/01/23 23:14 Albumin/Globulin Ratio 1.5 (0.9-2) 09/01/23 23:14 Lipase 21 U/L (11-82) 09/01/23 23:[address] 09/01/23 23:32 Exam(s): CT HEAD Without Contrast EXAM: CT Head Without Intravenous Contrast CLINICAL HISTORY: Reason for exam: seizure. TECHNIQUE: Axial computed tomography images of the head/brain without intravenous contrast. Automated exposure control was utilized for the study. A dose lowering technique was utilized adhering to the principles of ALARA. COMPARISON: No relevant prior studies available. FINDINGS: No acute intracranial hemorrhage. No midline shift or mass effect. The territorial ordoñez-white matter differentiation is maintained throughout. The ventricles and sulci are commensurate with age. The visualized orbits appear grossly unremarkable. The calvarium is intact. The visualized paranasal sinuses and mastoid air cells are grossly clear. IMPRESSION: No acute intracranial hemorrhage, midline shift, or mass effect. Electronically signed by: Chris Escobedo MD 09/02/23 00:50 AM ECG Additional Comments: EKG normal sinus rhythm with rate of 70. Nonspecific ST changes. Code Status & VTE Plan VTE Prophylaxis Plan VTE Prophylaxis will be ordered: Yes
[2023-09-02] MEDS: HYDROmorphone INJ 0.5 MG/0.5 ML SYR IV STA (02:47)
[2023-09-02] MEDS ORDERED: EPINEPHrine ADULT AUTO-INJECT 0.3 MG SYR IM PRN (03:10)
[2023-09-02] MEDS ORDERED: diphenhydrAMINE Capsule 25 MG CAP PO PRN (03:10)
[2023-09-02] MEDS ORDERED: POLYETHYLENE (MIRALAX) 17 GM PACK PO PRN (03:10)
[2023-09-02] MEDS ORDERED: GLUCOSE 40% GEL 15 GM TUBE PO PRN (03:10)
[2023-09-02] MEDS ORDERED: NITROGLYCERIN SL 0.4 MG/TAB TAB SL PRN (03:10)
[2023-09-02] MEDS ORDERED: DEXTROSE 50% 50 ML SYRINGE IV PRN (03:10)
[2023-09-02] MEDS ORDERED: LORazepam 2 MG in SYRINGE 1 ML IV PRN (03:10)
[2023-09-02] MEDS ORDERED: DICLOFENAC SOD 1% GEL 100 GM TUBE EXT PRN (03:10)
[2023-09-02] MEDS ORDERED: GLUCAGON FOR INJ 1 MG VIAL SQ PRN (03:10)
[2023-09-02] MEDS ORDERED: ALBUTEROL HFA 8 GM INHALER INH PRN (03:10)
[2023-09-02] MEDS ORDERED: GLUCOSE 10 TAB/TUBE PO PRN (03:10)
[2023-09-02] MEDS ORDERED: CARBOHYDRATES FOR HYPOGLYCEMIA PO PRN (03:10)
[2023-09-02] MEDS ORDERED: ACETAMINOPHEN 325 MG TAB PO PRN (03:10)
[2023-09-02] MEDS ORDERED: MECLIZINE HCL 25 MG TAB PO PRN (03:45)
[2023-09-02] MEDS: SODIUM CHLORIDE 0.9% 1,000 ML IV SCH (04:00)
[2023-09-02] MEDS: LEVOTHYROXINE SODIUM 25 MCG TABLET PO SCH (06:43)
--- NOTE | 2023-09-02 07:23 | XRay Report ---
XR chest 1V portable CLINICAL HISTORY: Chest pain, nonspecific TECHNIQUE: Single frontal radiograph of the chest was obtained. Comparison: Comparison is made to chest radiograph 08/07/2022 FINDINGS: No lines and tubes are seen. The cardiomediastinal silhouette is normal. The lungs are clear. No evid ence of pleural effusion or pneumothorax. IMPRESSION: No acute chest disease. ACT 112: Negative or not required by law. Electronically signed by: Ralph York M.D. 09/02/2023 7:21 AM
[2023-09-02] MEDS: AZELASTINE HCL 0.1% NASAL 200 SPRAYS/27,400 MCG BTL SCH (08:42)
[2023-09-02] MEDS: FLUTICASONE PROPIONATE NA SPR 16 GM BTL SCH (08:44)
[2023-09-02] MEDS: FLUTICASONE/VILANTEROL 100/25MCG 14 PUFFS/INHALER INH SCH (08:45)
[2023-09-02] MEDS: CETIRIZINE HCL 10 MG TABLET PO SCH (08:47)
[2023-09-02] MEDS: GABAPENTIN 300 MG CAP PO SCH ×3 (08:48→22:19)
[2023-09-02] MEDS: FAMOTIDINE 40 MG TABLET PO SCH (08:48)
[2023-09-02] MEDS: LOSARTAN POTASSIUM 50 MG TAB PO SCH (08:49)
[2023-09-02] MEDS: TOPIRAMATE 100 MG TAB PO SCH (08:49)
[2023-09-02 08:51] LABS: Calcium 8.9 mg/dl (8.6-10.3); Creatinine Clr Calc Pharmacy 75.7 ml/min; Est GFR (African American) 82.2 ml/min; Est GFR (Non-African American) 70.9 ml/min; Magnesium 2.2 mg/dl (1.7-2.4); Potassium 4.6 mmol/L (3.5-5.1)
[2023-09-02] MEDS: levETIRAcetam IV 500 MG in SODIUM CHLOR 0.9% MINI-B 100 ML IV SCH (08:51)
[2023-09-02] MEDS: ENOXAPARIN INJ 40 MG/0.4 ML SYR SQ SCH (08:51)
[2023-09-02 08:53] LABS: Basophils # (auto) 0.02 K/uL (0.00-0.20); Basophils % (auto) 0.4 %; Eosinophils # (auto) 0.07 K/uL (0.00-0.50); Eosinophils % (auto) 1.4 %; Hematocrit (blood only) 42.7 % (37.0-47.0); Hemoglobin 13.3 g/dl (12.0-16.0); Immature Granulocytes # (auto) 0.02 K/uL (0.01-0.20); Immature Granulocytes % (auto) 0.4 %; Lymphocytes # (auto) 1.51 K/uL (1.20-3.40); Lymphocytes % (auto) 30.7 %; Mean Corpuscular Hgb Conc 31.1 g/dL (32.0-36.0); Mean Corpuscular Volume 83.4 fL (80.0-100.0); Mean Platelet Volume 11.2 fL (9.4-12.4); Monocytes # (auto) 0.39 K/uL (0.11-0.59); Monocytes % (auto) 7.9 %; Neutrophils # (auto) 2.91 K/uL (1.40-6.50); Neutrophils % (auto) 59.2 %; Platelet Count 177 K/uL (130-400); RDW Coefficient of Variation 13.9 % (11.5-14.5); RDW Standard Deviation 42.3 fL (36.4-46.3); Red Blood Count 5.12 M/uL (4.20-5.40); White Blood Count 4.92 K/ul (4.8-10.8)
[2023-09-02 08:55] LABS: Troponin I High Sensitivity 4.2 pg/ml (0-14)
[2023-09-02 09:03] LABS: Estimated Average Glucose 134 mg/dl; Hemoglobin A1C 6.3 % (4.5-5.6)
--- NOTE | 2023-09-02 09:42 | Neurology Consultation ---
Date of Consultation September 02, 2023 Assessment & Plan (1) Myoclonic jerking: History of Present Illness Attending Physician: Jelani Florence MD History of Present Illness pt this morning back to baseline. pt without sign of seizure. pt apparently had 3 seizure like events last 2 days. odd description of her events with eyes closed during the events. no tongue biting and no bowel/bladder loss. pt well known to our clinic and followed by dr. palacios and MARCIO Mckenzie. chart reviewed. admission HPI: 58-year-old female with past medical history significant for type 2 diabetes, asthma mild persistent, allergic rhinitis, nocturnal hypoxemia, obesity, GERD, contact dermatitis and eczema, migraines, seizure disorder, vertigo, allergic to nuts, depression with anxiety, light sensitivity, presents with seizures. Patient states since yesterday and today she had 3 episodes of seizures. Her in the room. Today she had kkkr-ji-[id number] seizures. Where she shook all over the body. And she was unresponsive for about 20 minutes. And she was Somewhat confused after that. Patient is currently alert and awake. Able to answer questions. States she has some trouble concentrating. No recent fevers. She states she has headaches on and off. Gets chest pains on and off. Shortness of breath on and off. Nausea on and off. Some runny nose. Appetite is okay. Currently no abdominal pain. Normal bowel and bladder movements. Ambulates with a walker. Afebrile. Past medical history. As mentioned above Past surgical history. Left carpal tunnel surgery. Colonoscopy and EGD. Left shoulder arthroscopy. Right shoulder arthroscopy. Vaginal hysterectomy. Social history. . No smoking. No alcohol use. No drug use. Family history. Brother has asthma. Son has asthma. Father had cancer Primary Care Provider: Allergies Allergy/AdvReac Type Severity Reaction Status Date / Time Sulfa (Sulfonamide AdvReac Intermediate GI SYMPTOMS Verified 09/01/23 23:27 Antibiotics) various allergies Allergy Severe Anaphylaxis Uncoded 09/01/23 23:27 Home Medications Medication Instructions Recorded Confirmed Type albuterol sulfate 90 mcg/actuation 2 - 4 puff inhalation Q6H PRN 08/14/18 09/01/23 History aerosol inhaler (Ventolin HFA) Shortness Of Breath Or Wheezing cetirizine 10 mg tablet (Zyrtec) 10 mg PO QAM 08/14/18 09/01/23 History epinephrine 0.3 mg/0.3 mL 0.3 mg IM Q3H PRN Anaphylaxis 08/14/18 09/01/23 Hi story injection, auto-injector (EpiPen) ergocalciferol (vitamin D2) 1,250 50,000 unit PO WK 08/14/18 09/01/23 History mcg (50,000 unit) capsule (Vitamin D2) fluticasone propionate 50 2 spray intranasal QAM 08/14/18 09/01/23 History mcg/actuation nasal spray,suspension (Flonase Allergy Relief) levothyroxine 25 mcg tablet 25 mcg PO QAM 08/14/18 09/01/23 History pantoprazole 40 mg tablet,delayed 40 mg PO HS 08/14/18 09/01/23 History release (Protonix) ranitidine HCl 150 mg tablet 150 mg PO BID 08/14/18 09/01/23 History azelastine 137 mcg (0.1 %) nasal 1 sprays intranasal BID 12/22/19 09/01/23 History spray aerosol fluticasone 250 mcg-salmeterol 50 1 puffs inhalation BID 12/22/19 09/01/23 History mcg/dose blistr powdr for inhalation fluticasone propionate 110 1 puffs inhalation BID 12/22/19 09/01/23 History mcg/actuation HFA aerosol inhaler atorvastatin 20 mg tablet 20 mg PO QPM dyslipidemia 07/15/21 09/01/23 History meclizine 25 mg chewable tablet 25 mg PO DAILY PRN dizziness 02/06/22 09/01/23 History (Bonine) diclofenac sodium 1 % topical gel 2 g topical QID PRN Pain 08/04/22 09/01/23 History (Voltaren Arthritis Pain) diphenhydramine HCl 25 mg capsule 25 mg PO TID PRN 02/04/23 09/01/23 History (Benadryl) ITCHING/RESTLESSNESS empagliflozin 10 mg tablet 10 mg PO DAILY 02/04/23 09/01/23 History (Jardiance) famotidine 40 mg tablet 40 mg PO DAILY 02/04/23 09/01/23 History lidocaine (PF) 40 mg/mL (4 %) 40 mg IM Q3MO 02/04/23 09/01/23 History injection solution ondansetron 8 mg disintegrating 8 mg PO Q8H PRN NAUSEA/VOMITING 02/04/23 09/01/23 History tablet losartan 25 mg tablet 50 mg PO DAILY 05/12/23 09/01/23 History topiramate 200 mg tablet 200 mg PO BID 90 days #180 tabs 08/31/23 09/01/23 Rx gabapentin 300 mg capsule 600 mg PO TID 09/01/23 09/01/23 History Patient History Medical History (Updated 09/02/23 @ 02:42 by Mehul Reyes MD) Chronic vertigo Seizure Bilateral wrist pain Concussion Surgical History (Updated 02/10/22 @ 15:10 by Cori Faye) No history of previous surgery Family History (Updated 12/22/19 @ 10:34 by Cori Faye) Mother No pertinent family history Social History Smoking Status: Never smoker marital status: Current Living Situation: Spouse Feels Safe at Home: Yes Exam (Neuro) Physical Exam: HEENT: normocephalic Neuro: Mental: AOx4, fluent speech, normal comprehension, no apraxia, no L/R confusion, no neglect CN: PERRL, Full EOM, symmetric face, intact sensation t/o face except vague distribution of feeling numbness b/l face subjectively, midline T/U/P, 5/5 SCM/traps. Motor: No abnormal movements, normal tone and bulk, 5-/5 t/o bilaterally grossly t/o. Sens: intact to touch b/l grossly Coord: intact FNT b/l with some dysmetria with eyes open and closed (worse with closed, very suggestive of functional exam/somatoform disorder) DTR: 2+ sym b/l Gait: deferred. Impression: 58 yo female with prior hx of seizure events who presented with multiple seizure like spells in setting of anxiety/depression. the description of the events are very atypical for GTC seizure event but given her hx of seizure, agree with monitoring. Recommendations: stop keppra (want to avoid in pts with known psychiatry history) increase neurontin to 900mg AM, 600mg noon, 900mg PM. continue topamax as now. if pt doing well today, she can be discharged and f/u as outpt with her neurologist routinely. if pt wants to stay one more day, ok with discharge tomorrow. EEG order cancelled. no need for EEG. Chart reviewed I have spent more than 50% educating patient about potential diagnosis, 60 min (this includes chart review). Results & Data Vital Signs (Past 12 Hours) Vital Signs Temp Pulse Pulse Resp BP BP Pulse Ox 09/02/23 08:49 59 L 09/02/23 08:41 55 L 18 138/84 100 09/02/23 06:00 61 18 116/63 99 09/02/23 04:00 09/02/23 04:00 57 L 18 128/76 98 09/02/23 02:00 64 18 120/77 98 09/02/23 00:52 62 09/02/23 00:41 68 100 09/02/23 00:40 84 L 09/01/23 23:30 98 09/01/23 23:05 09/01/23 23:05 98 09/01/23 23:05 36.7 C 84 22 161/81 H 98 Pulse Ox O2 Del Method O2 Del Method O2 Flow Rate O2 Flow Rate 09/02/23 08:49 09/02/23 08:41 Nasal Cannula 2 09/02/23 06:00 Nasal Cannula 2 09/02/23 04:00 98 Nasal Cannula 2 09/02/23 04:00 Nasal Cannula 2 09/02/23 02:00 Room Air 09/02/23 00:52 09/02/23 00:41 Nasal Cannula 3 09/02/23 00:40 Room Air 09/01/23 23:30 Room Air 09/01/23 23:05 Room Air 09/01/23 23:05 Room Air 09/01/23 23:05 Room Air PG Care Time/CCT Total # of Minutes Spent Total Time Spent with Patient: Total time spent is greater than 50% in coordination of care (as documented) at patient's floor/unit and/or counseling patient: Coding Level of Care Code 07965 IN/OBS CONSULT LVL 4,60M Diagnoses Myoclonic jerking G25.3
--- OUTSIDE RECORDS SUMMARY | 2023-09-02 09:42 | External Medical Summary | Summary of Care ---
Author Name Unknown Organization [facility] Address [address] [place] [address] Phone [phone] Care Team Providers Care Hull Sorter Name Role Phone Eliazar Martinez MD Primary Care Provider [phone]- [phone] Reason for Visit * Reason Comments eRx-Medication Refill Encounter Details Date Type Department Care Team ([facility] st Contact Info) Description 08/08/2023 Refill [facility] [address] [place] [address] Eliazar Martinez MD [address], [place] [id number] Gastroesophageal reflux disease without esophagitis; Dyslipidemia Allergies Active Allergy Reactions Criticality Noted Date Comments Duloxetine Hcl Nausea/vomiting 08/23/2012 Nutritional Supplements Edema airway,Hives High 10/2017 Can NOT eat any fresh fruit/Vegs Able to eat canned foods Peanut-Containing Drug Products Edema airway,Hives High 08/04/2017 Tree nuts Sulfa Antibiotics 05/08/1999 Nausea/vomiting with gantrisin documented as of this encounter (statuses as of 08/10/2023) Medications Medication Sig Dispensed Refills Start Date End Date Status BENADRYL 25 MG PO CAPS 1 or 2 pills by mouth 4 times a day as needed for itching or allergies 50 Cap 1 2 Active SIMILASAN STYE EYE RELIEF OP SOLN 2 drops each as needed 1 mL 0 2 Active ibuprofen (MOTRIN) 800 MG Tablet Take 1 Tab by mouth 3 times a day. Take with Meals 90 Tab 0 9 Active Meclizine HCl 25 MG Oral Tablet Chewable Take 1 Tablet by mouth 3 times a day as needed. 0 Active topiramate (TOPAMAX) 100 MG Tablet 2 Tablets in the morning and 2 Tablets before bedtime. Take 1 in the AM and [address] Ortega. 90 Tab 0 0 Active OneTouch Verio w/Device KitIndications:Typ e 2 diabetes mellitus with hemoglobin A1c goal of less than 7.0% (HCC) Use to check blood sugars once per day E11.9 1 Kit 0 1 Active LancetsIndications :Type 2 diabetes mellitus with hemoglobin A1c goal of less than 7.0% (HCC) Use to check blood sugars up to once per day as directed Dx E11.9 100 Each 11 1 Active Albuterol Sulfate HFA 108 (90 Base) MCG/ACT Inhalation Aerosol SolutionIndication s:Mild persistent asthma without complication INHALE 2 PUFFS BY MOUTH EVERY 4 HOURS NEEDED FOR COUGH, SHORTNESS OF BREATH OR WHEEZING. 18 g 5 1 Active Fluticasone-Salmet ney 250-50 MCG/DOSE Inhalation Aerosol Powder Breath Activated (Advair Diskus) Inhale by mouth 1 Puff in the morning AND 1 Puff before bedtime. Please dispense nonWixela, generic Advair per insurance.. 180 Each 4 2 Active valACYclovir HCl 1 GM Oral Tablet (Valtrex)Indicatio ns:Herpes simplex vulvovaginitis Take 1 tab once daily times 5 days 5 Tablet 0 2 Active Ondansetron HCl 8 MG Oral Tablet (Zofran)Indication s:Nausea TAKE ONE TABLET BY MOUTH EVERY 8 HOURS NEEDED NAUSEA 20 Tablet 0 2 Active EPINEPHrine 0.3 MG/0.3ML Injection Solution Auto-injector (Autoinjector)Noemy cations:Oral allergy syndrome, subsequent encounter,Allergy to nuts For a severe reaction: Inject in outer thigh following instructions on package and go to the Emergency room. 2 Each 5 3 Active Montelukast Sodium 10 MG Oral Tablet (Singulair) Take 1 Tablet by mouth in the morning. 90 Tablet 3 3 Active Cetirizine HCl 10 MG Oral Tablet (ZyrTEC) Take 1 Tablet by mouth in the morning. 90 Tablet 3 3 Active Fluticasone-Salmet ney 250-50 MCG/ACT Inhalation Aerosol Powder Breath Activated (Advair Diskus) Inhale 1 Puff by mouth in the morning and 1 Puff before bedtime. 180 Each 4 3 Active OneTouch Verio In Vitro Strip (Glucose Blood)Indications: Type 2 diabetes mellitus with hemoglobin A1c goal of less than 7.0% ([facility]) USE TO CHECK BLOOD SUGARS ONCE PER DAY E11.9 300 Strip 1 3 Active Losartan Potassium 25 MG Oral Tablet (Cozaar)Indication s:Essential hypertension with goal blood pressure less than 130/80 TAKE 2 TABLETS BY MOUTH EVERY MORNING 180 Tablet 3 3 Active Gabapentin 300 MG Oral Capsule (Neurontin) Take 2 Capsules by mouth in the morning and 2 Capsules at noon and 2 Capsules before bedtime. One tablet in the morning, two tablets at night.. 0 Active Levothyroxine Sodium 25 MCG Oral Tablet (Levoxyl)Indicatio ns:Hypothyroidism, unspecified type TAKE ONE TABLET BY MOUTH EVERY DAY -AT LEAST 30 MINUTES BEFORE BREAKFAST OR OTHER MEDS 90 Tablet 3 3 Active Vitamin D (Ergocalciferol) 1.25 MG (41524 UT) Oral Capsule (Drisdol)Indicatio ns:Vitamin D deficiency TAKE 1 CAPSULE BY MOUTH ONE TIME PER WEEK 12 Capsule 3 3 Active Jardiance 10 MG Oral Tablet (Empagliflozin) TAKE 1 TABLET BY MOUTH EVERY DAY IN THE MORNING 90 Tablet 1 4 Active Fluticasone Propionate 50 MCG/ACT Nasal Suspension (Flonase) ADMINISTER 2 SPRAYS INTO NOSTRIL IN THE MORNING. 48 mL 4 4 Active Famotidine 40 MG Oral Tablet (Pepcid) TAKE 1 TABLET BY MOUTH EVERY DAY 90 Tablet 2 4 Active Pantoprazole Sodium 40 MG Oral Tablet Delayed Release (Protonix)Indicati ons:Gastroesophage al reflux disease without esophagitis TAKE 1 TABLET BY MOUTH TWICE A DAY 180 Tablet 2 4 Active Atorvastatin Calcium 20 MG Oral Tablet (Lipitor)Indicatio ns:Dyslipidemia TAKE 1 TABLET BY MOUTH EVERY DAY 90 Tablet 2 4 Active Famotidine 40 MG Oral Tablet (Pepcid) TAKE 1 TABLET BY MOUTH EVERY DAY 90 Tablet 3 3 08/10/19 24 Discontinued Atorvastatin Calcium 20 MG Oral Tablet (Lipitor)Indicatio ns:Dyslipidemia TAKE 1 TABLET BY MOUTH EVERY DAY 90 Tablet 2 3 08/10/19 24 Discontinued Pantoprazole Sodium 40 MG Oral Tablet Delayed Release (Protonix)Indicati ons:Gastroesophage al reflux disease without esophagitis TAKE 1 TABLET BY MOUTH TWICE A DAY 180 Tablet 2 3 08/10/19 24 Discontinued documented as of this encounter (statuses as of 08/10/2023) Active Problems Problem Noted Date Diagnosed Date Type 2 diabetes mellitus wit h hemoglobin A1c goal of less than 7.0% 12/31/2021 Body mass index (BMI) of 40.0 to 44.9 in adult 0 02/07/2020 Overview: Per Obesity protocol - ICD-10 update of inactive diagnosis Seizure disorder 11/16/2014 Migraine 07/22/2014 Hx of hysterectomy 09/23/2013 Nocturnal hypoxemia 10/06/2012 Overview: 10/2013 RA -- <89% 0 mins, DC O2 10/19/12 1 LPM -- low 93% 09/29/12 RA -- low 79%, mean 93%, <89% 26 mins, SHOAIB 12 [facility] Plus Oxygen Depression with anxiety 10/06/2011 Asthma, mild persistent 07/08/2011 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 Allergy to nuts 07/08/2011 Overview: Peanut and tree nuts - Mouth and throat swelling, hives Allergic rhinitis 07/08/2011 Allergic conjunctivitis 07/08/2011 Contact dermatitis and other eczema due to other specified agent 05/02/2009 Esophageal reflux 02/09/2009 Vertigo documented as of this encounter (statuses as of 08/10/2023) Resolved Problems Problem Noted Date Diagnosed Date Resolved Date Major depressive disorder with single episode 01/01/20 22 07/10/2022 Prediabetes 11/13/2020 12/31/2021 Overview: Per Prediabetes protocol Elevated hemoglobin A1c measurement 09/17/2020 12/31/2021 Injury of right hand 11/16/2014 017 Right wrist injury 11/16/2014 7 Strain of left wrist 11/16/2014 017 Contusion of chest wall 11/16/201412/31 Overview: right Severe obesity with body mas s index (BMI) of 35.0 to 39.9 with serious comorbidity 06/14/2013 Overview: Per Obesity protocol - ICD-10 update of inactive diagnosis Snoring 10/08/2011 01/20/2017 Dyspnea and respiratory abnormality 10/08/2011 01/20/2017 Overview: ICD-10 update of inactive term Allergic rhinitis 05/02/2009 07/08/2011 Other chronic allergic conjunctivitis 05/02/2009 07/08/2011 Asthma with severity to be determined 05/02/2009 07/08/2011 Overview: ICD-10 update of inactive term POLLEN-FOOD ALLERGY SYNDROME 05/02/2009 07/08/2011 FOOD ALLERGY - ALLERGIC REACTION PEANUTS 05/02/2009 07/08/2011 Overview: Mouth, throat swelling, hives FOOD ALLERGY - ALLERGIC REACTION TREE NUTS 05/02/2009 07/08/2011 Overview: Mouth, throat swelling, hives Allergy to other foods 02/09/200905/02 documented as of this encounter (statuses as of 08/10/2023) Immunizations Name Administration Dates Next Due COVID-19 mRNA, LNP-s, No Pre serve, 2-Dose Series (Moderna) 10/20/2020,09/22/2020 Covid-19, Mrna, Lnp-s, Pf, B ivalent, 50 Mcg, IM, 12 yrs and above (Moderna) 03/12/2022 Hepatitis B Vaccine, Recombi nant, Adjuvanted, 20 mcg/mL (Heplisav-B) 03/10/2023 Pneumococcal Conjugate Vacci ne, 20-valent ([id number]) 03/10/2023 Pneumococcal Polysaccharide PPV23 (Pneumovax) 03/15/2014 Seasonal Influenza, PF, 6 M & above, IM , (FluLaval or Fluzone) 03/10/2023,04/03/2021,04/03/2020,03/01,03/10/2018,02/20/2017 02/20/2018 Seasonal Influenza, Quadriva lent, No Preserve, IM 02/20/2016,03/05/2015 Seasonal Influenza, Split, I IV3, With Preserve, Inj 03/15/2014 TDAP (age 11 and older)(Adacel) 07/18/2015,06/09 Zoster Vaccine Recombinant (Shingrix) 01/26/2020 ,07/28/2019 documented as of this encounter Social History Tobacco Use Types Packs/Day Years Used Date Smoking Tobacco: Never Smokeless Tobacco: Never Comments:no passive smoke ex posures in the household Alcohol Use Standard Drinks/Week Comments No 0 (1 standard drink = 0.6 oz pur e alcohol) PHQ-2 Answer Date Recorded PHQ Adult Total Score 0 09/04/2022 Hunger Vital Sign Answer Date Recorded Worried About Running Out of Food in the Last Ye ar Never true 07/28/2019 Ran Out of Food in the Last Year Never true 07/28/2019 Sex and Gender Information Value Date Recorded Sex Assigned at Female 08/20/2018 1:03 PM EDT Gender Identity Female 08/20/2018 1:03 PM EDT Sexual Orientation Straight 08/20/2018 1: 03 PM EDT Job Start Date Occupation Industry Not on file Not on file Not on file documented as of this encounter Miscellaneous Notes * Telephone Encounter - Elza Gonzalez, [facility] - 08/10/2023 2:22 PM EDT Signed Prescriptions: Disp Refills Famotidine 40 MG Oral Tablet (Pepcid) 90 Tab*2 Sig: TAKE 1 TABLET BY MOUTH EVERY DAYAuthorizing Provider: ELIAZAR MARTINEZ User: EZLA GONZALEZ Pantoprazole Sodium 40 MG Oral Tablet Nayeli*180 Ta*2 Sig: TAKE 1 TABLET BY MOUTH TWICE A DAYAuthorizing Provider: ELIAZAR MARTINEZ User: ELZA GONZALEZ Atorvastatin Calcium 20 MG Oral Tablet (Li*90 Tab*2 Sig: TAKE 1 TABLET BY MOUTH EVERY DAYAuthorizing Provider: ELIAZAR MARTINEZ User: ELZA GONZALEZ documented in this encounter Plan of Treatment Upcoming Encounters Date Type Department Care Team (Late st Contact Info) Description 09/01/2023 1:30 PM EDT Office Visit Allergy/Immunology [facility] [address] [facility] [place] [address] Chris Frank MD [address] [place] [address] 09/09/2023 12:20 PM EDT Office Visit [facility] [address] [place] [phone] Eliazar Martinez MD [address] [place] [address] 09/28/2023 10:30 AM EDT Office Visit Orthopaedics [facility] [address] [place] [address] Jonatan Villafuerte, [address] [place] [address] 10/06/2023 10:30 AM EDT Telemedicine Nutrition Services, [place] [address] [place] [address] Magdalene Klein RDN [address] [facility] [place] [address] Scheduled Procedures Name Priority Associated Diagnoses Date/Ti me COLONOSCOPY FLEXIBLE PROXIMA L DIAGNOSTIC Recall Encounter for screening colonoscopy Health Maintenance Due Date Last Done Comments Cologuard 2009 Fecal Occult Blood Test 2009 Sigmoidoscopy 2009 Hepatitis B (2 of 2 - CpG 2-dose series) 04/07/2023 03/10/2023 Depression Screening 09/05/2023 09/04/2022 HbA1c 09/09/2023 03/10/2023, 020 01/2023, 12/31/2021, Additional history exists Diabetic Eye Exam 11/05/2023 11/04/2022, , 09/19/2021 Mammogram 12/23/2023 12/22/2022, 11/30, 08/09/2020, Additional history exists Albumin/Creatinine Ratio 03/10/2024 03/10/2023, 2 10/2020 Diabetic Foot Exam 03/10/2024 03/10/2023 GFR 03/10/2024 03/10/2023, 04/0 10/2022, 07/10/2022, Additional history exists TSH 03/10/2024 03/10/2023, 080 07/2021, 07/03/2021, Additional history exists DTaP,Tdap,and Td Vaccines (3 - Td or Tdap) 07/18/2025 07/18/2015, 06/09/2008 Colonoscopy 08/19/2027 08/18/2017, 08/18/2017 Colorectal Cancer Screening 08/19/2027 Lipid Panel 03/10/2028 03/10/2023, 02/0 01/2023, 07/03/2021, Additional history exists Zoster Vaccines Completed 01/26/2020, 07/28/2019 Influenza Vaccine (FLU shot) Completed 03/10/2023, 04/03/2021, 04/03/2020, Additional history exists Pneumococcal Vaccine: Pediatrics (0 to 5 Years) and At-Risk Patients (6 to 64 Years) Completed 03/10/2023, 03/15/2014 COVID-19 Vaccine Completed 04/20/2023, 05/2022, 10/20/2020, Additional history exists GARDASIL-HPV IMMUNIZATION SERIES Aged Out No longer eligible based on patient's age to complete this topic HIV Screening Discontinued Hepatitis C Screening Discontinued MENINGOCOCCAL (MENACTRA/MENVEO) Aged Out No longer eligible based on patient's age to complete this topic documented as of this encounter Medical Devices Not on filedocumented as of this encounter Visit Diagnoses Diagnosis Gastroesophageal reflux disease without esophagitis Esophageal reflux Dyslipidemia Other and unspecified hyperlipidemia documented in this encounter Advance Directives Documents on File Type Date Recorded Patient Hardwood Floor Refinisher Expl anation Advance Directives and Living Will 08/23/2018 ADVANCE DIRECTIVE FI VE WISHES Power of Riveting Machine Operator Automatic 08/23/2018 POWER OF A TTORNEY FIVE WISHES Care Teams Hull Sorter Relationship Specialty Start Date End Date Eliazar Martinez MD [address] [place] [address] PCP - General Family Medicine 07/27/18 documented as of this encounter
--- OUTSIDE RECORDS SUMMARY | 2023-09-02 09:43 | External Medical Summary | Summary of Care ---
Author Name Unknown Organization [facility] Address [address] [place] [address] Phone [phone] Care Team Providers Care Top Flavor Attendant Name Role Phone Eliazar Martinez MD Primary Care Provider +1- [phone] Reason for Visit * Reason Comments eRx-Medication Refill Encounter Details Date Type Department Care Team ([facility] st Contact Info) Description 07/27/2023 Refill [facility] [address] [place] [address] Katelyn Bell MD [address] [place] [address] Allergies Active Allergy Reactions Criticality Noted Date Comments Duloxetine Hcl Nausea/vomiting 08/23/2012 Nutritional Supplements Edema airway,Hives High 10/2017 Can NOT eat any fresh fruit/Vegs Able to eat canned foods Peanut-Containing Drug Products Edema airway,Hives High 08/04/2017 Tree nuts Sulfa Antibiotics 05/08/1999 Nausea/vomiting with gantrisin documented as of this encounter (statuses as of 07/27/2023) Medications Medication Sig Dispensed Refills Start Date [...] the morning. 90 Tablet 3 3 Active Fluticasone Propionate 50 MCG/ACT Nasal Suspension (Flonase) Administer 2 Sprays into nostril in the morning. 48 mL 4 3 Active Famotidine 40 MG Oral Tablet (Pepcid) TAKE 1 TABLET BY MOUTH EVERY DAY 90 Tablet 3 3 Active Fluticasone-Salmet ney 250-50 MCG/ACT Inhalation Aerosol Powder Breath Activated (Advair Diskus) Inhale 1 Puff by mouth in the morning and 1 Puff before bedtime. 180 Each 4 3 Active Atorvastatin Calcium 20 MG Oral Tablet (Lipitor)Indicatio ns:Dyslipidemia TAKE 1 TABLET BY MOUTH EVERY DAY 90 Tablet 2 3 Active Pantoprazole Sodium 40 MG Oral Tablet Delayed Release (Protonix)Indicati ons:Gastroesophage al reflux disease without esophagitis TAKE 1 TABLET BY MOUTH TWICE A DAY 180 Tablet 2 3 Active OneTouch Verio In Vitro Strip (Glucose Blood)Indications: Type 2 diabetes mellitus with hemoglobin A1c goal of less than 7.0% ([facility]) USE TO CHECK BLOOD SUGARS ONCE PER [...] 3 Active Vitamin D (Ergocalciferol) 1.25 MG (72829 UT) Oral Capsule (Drisdol)Indicatio ns:Vitamin D deficiency TAKE 1 CAPSULE BY MOUTH ONE TIME PER WEEK 12 Capsule 3 3 Active Jardiance 10 MG Oral Tablet (Empagliflozin) TAKE 1 TABLET BY MOUTH EVERY DAY IN THE MORNING 90 Tablet 1 4 Active Empagliflozin 10 MG Oral Tablet (Jardiance) Take 1 Tablet by mouth in the morning. 30 Tablet 11 3 07/27/19 24 Discontinued documented as of this encounter (statuses as of 07/27/2023) Active Problems Problem Noted Date Diagnosed Date [...] as of this encounter (statuses as of 07/27/2023) Resolved Problems Problem Noted Date Diagnosed Date [...] as of this encounter (statuses as of 07/27/2023) Immunizations Name Administration Dates Next Due COVID-19 mRNA, LNP-s, No Pre serve, 2-Dose Series (Moderna) 10/20/2020,09/22/2020 Covid-19, Mrna, Lnp-s, Pf, B ivalent, 50 Mcg, IM, 12 yrs and above (Moderna) 03/12/2022 Hepatitis B Vaccine, Recombi nant, Adjuvanted, 20 mcg/mL (Heplisav-B) 03/10/2023 Pneumococcal Conjugate Vacci ne, 20-valent ([id number]) 03/10/2023 Pneumococcal Polysaccharide PPV23 (Pneumovax) 03/15/2014 Seasonal [...] encounter Miscellaneous Notes * Telephone Encounter - Stanislav Heart RPh - 07/27/2023 4:21 PM ESTSigned Prescriptions: Disp Refills Jardiance 10 MG Oral Tablet (Empagliflozin)90 Tab*1 Sig: TAKE 1 TABLET BY MOUTH EVERY DAY IN THE MORNINGAuthorizing Provider: ELIAZAR MARTINEZ User: STANISLAV HEART documented in this encounter Plan of Treatment Upcoming Encounters Date Type Department Care Team (Late st Contact Info) Description 09/01/2023 1:30 PM EDT Office Visit Allergy/Immunology [facility] [address] [facility] [place] [address] Chris Frank MD [address] [facility] [place] [address] 09/09/2023 12:20 PM EDT Office Visit [facility] [address] [place] [phone] Eliazar Martinez MD [address] [place] [address] 09/28/2023 10:30 AM EDT Office Visit Orthopaedics [facility] [address] [place] [address] Jonatan Villafuerte DO [address] [place] [address] 10/06/2023 10:30 AM EDT Telemedicine Nutrition Services, [place] [address] [place] [address] Magdalene Klein, [place] [address] [place] [address] Scheduled Procedures Name Priority Associated Diagnoses Date/Ti me COLONOSCOPY FLEXIBLE PROXIMA L DIAGNOSTIC Recall Encounter for screening colonoscopy Health Maintenance Due Date Last Done Comments Cologuard 2009 Fecal Occult Blood Test 2009 Sigmoidoscopy 2009 Hepatitis B (2 of 2 - CpG 2-dose series) 04/07/2023 03/10/2023 Depression Screening 09/05/2023 09/04/2022 HbA1c 09/09/2023 03/10/2023, 02/0 01/2023, 12/31/2021, Additional history exists Diabetic Eye Exam 11/05/2023 11/04/2022, , 09/19/2021 Mammogram 12/23/2023 12/22/2022, 11/30, 08/09/2020, Additional history exists Albumin/Creatinine Ratio 03/10/2024 03/10/2023, 08/2 10/2020 Diabetic Foot Exam 03/10/2024 03/10/2023 GFR 03/10/2024 03/10/2023, 04/0 10/2022, 07/10/2022, Additional history exists TSH 03/10/2024 03/10/2023, 08/0 07/2021, 07/03/2021, Additional history exists DTaP,Tdap,and Td Vaccines (3 - Td or Tdap) 07/18/2025 07/18/2015, 06/09/2008 Colonoscopy 08/19/2027 08/18/2017, 08/18/2017 Colorectal Cancer Screening 08/19/2027 Lipid Panel 03/10/2028 03/10/2023, 020 01/2023, 07/03/2021, Additional history exists Zoster Vaccines [...] Not on filedocumented as of this encounter Advance Directives Documents on File Type Date Recorded Patient Manager Market Research Expl anation Advance Directives and Living Will 08/23/2018 ADVANCE DIRECTIVE FI VE WISHES Power of Sales And Service Specialist 08/23/2018 POWER OF A TTORNEY FIVE WISHES Care Teams Top Flavor Attendant Relationship Specialty Start Date End Date Eliazar Martinez MD [address] [place] [address] PCP - General Family Medicine 07/27/18 documented as of this encounter
--- OUTSIDE RECORDS SUMMARY | 2023-09-02 09:43 | External Medical Summary | Summary of Care ---
Author Name Unknown Organization [facility] Address [address] [place] [address] Phone [phone] Care Team Providers Care Pipeline Superintendent Division Name Role Phone Eliazar Winston MD Primary Care Provider [phone] Reason for Visit * Reason Comments eRx-Medication Refill Encounter Details Date Type Department Care Team ([facility] st Contact Info) Description 08/04/2023 Refill Allergy/Immunology [facility] [address] [place] [address] Aminah Barr MD [address] [place] [address] Allergies Active Allergy Reactions Criticality Noted Date Comments Duloxetine Hcl Nausea/vomiting 08/23/2012 Nutritional Supplements Edema airway,Hives High 10/2017 Can NOT eat any fresh fruit/Vegs Able to eat canned foods Peanut-Containing Drug Products Edema airway,Hives High 08/04/2017 Tree nuts Sulfa Antibiotics 05/08/1999 Nausea/vomiting with gantrisin documented as of this encounter (statuses as of 08/04/2023) Medications Medication Sig Dispensed Refills Start Date [...] hemoglobin A1c goal of less than 7.0% ([facility]) Use to check blood sugars once per day E11.9 1 Kit 0 1 Active LancetsIndications :Type 2 diabetes mellitus with hemoglobin A1c goal of less than 7.0% ([facility]) Use to check blood sugars up to [...] the morning. 90 Tablet 3 3 Active Famotidine 40 MG Oral Tablet [...] hemoglobin A1c goal of less than 7.0% ([facility]) USE TO CHECK BLOOD SUGARS ONCE PER [...] 3 Active Vitamin D (Ergocalciferol) 1.25 MG (25443 UT) Oral Capsule (Drisdol)Indicatio ns:Vitamin D deficiency TAKE 1 CAPSULE BY MOUTH ONE TIME PER WEEK 12 Capsule 3 3 Active Jardiance 10 MG Oral Tablet (Empagliflozin) TAKE 1 TABLET BY MOUTH EVERY DAY IN THE MORNING 90 Tablet 1 4 Active Fluticasone Propionate 50 MCG/ACT Nasal Suspension (Flonase) ADMINISTER 2 SPRAYS INTO NOSTRIL IN THE MORNING. 48 mL 4 4 Active Fluticasone Propionate 50 MCG/ACT Nasal Suspension (Flonase) Administer 2 Sprays into nostril in the morning. 48 mL 4 3 08/04/19 24 Discontinued documented as of this encounter (statuses as of 08/04/2023) Active Problems Problem Noted Date Diagnosed Date [...] as of this encounter (statuses as of 08/04/2023) Resolved Problems Problem Noted Date Diagnosed Date [...] as of this encounter (statuses as of 08/04/2023) Immunizations Name Administration Dates Next Due COVID-19 mRNA, LNP-s, No Pre serve, 2-Dose Series (Moderna) 10/20/2020,09/22/2020 Covid-19, Mrna, Lnp-s, Pf, B ivalent, 50 Mcg, IM, 12 yrs and above (Moderna) 03/12/2022 Hepatitis B Vaccine, Recombi nant, Adjuvanted, 20 mcg/mL (Heplisav-B) 03/10/2023 Pneumococcal Conjugate Vacci ne, 20-valent ([id number]) 03/10/2023 Pneumococcal Polysaccharide PPV23 (Pneumovax) 03/15/2014 Seasonal [...] encounter Miscellaneous Notes * Telephone Encounter - Aminah Barr MD - 08/04/2023 7:34 AM ESTSigned Prescriptions: Disp Refills Fluticasone Propionate 50 MCG/ACT Nasal Zamudio*48 mL 4 Sig: ADMINISTER 2 SPRAYS INTO NOSTRIL IN THE MORNING. Authorizing Provider: AMINAH BARR * Telephone Encounter - Karishma Ovalles LPN - 08/04/2023 7:28 AM EST Pending Prescriptions: Disp Refills Fluticasone Propionate 50 MCG/ACT Nasal Zamudio*48 mL 4 Sig: Administer 2 Sprays into nostril in the morning. * Telephone Encounter - Karishma Ovalles LPN - 08/04/2023 7:28 AM EST Pending Prescriptions: Disp Refills Fluticasone Propionate 50 MCG/ACT Nasal S*48 mL 4 Sig: ADMINISTER 2 SPRAYS INTO NOSTRIL IN THE MORNING. Last Visit: 08/28/2022 (in office), 06/13/2020 (telemedicine) Next Visit: 09/01/2023 Last date the medication was ordered: 07/22/22 Health Maintenance Topic Date Due Hepatitis B (2 of 2 - CpG 2-dose series) 04/07/2023 Depression Screening 09/05/2023 HbA1c 09/09/2023 Diabetic Eye Exam 11/05/2023 Mammogram 12/23/2023 Albumin/Creatinine Ratio 03/10/2024 Diabetic Foot Exam 03/10/2024 GFR 03/10/2024 TSH 03/10/2024 DTaP,Tdap,and Td Vaccines (3 - Td or Tdap) 07/18/2025 Colorectal Cancer Screening 08/19/2027 Lipid Panel 03/10/2028 Influenza Vaccine (FLU shot) Completed Zoster Vaccines Completed Pneumococcal Vaccine: Pediatrics (0 to 5 Years) and At-Risk Patients (6 to 64 Years) Completed COVID-19 Vaccine Completed MENINGOCOCCAL (MENACTRA/MENVEO) Aged Out GARDASIL-HPV IMMUNIZATION SERIES Aged Out Hepatitis C Screening Discontinued HIV Screening Discontinued Labs: Lab Results Component Value Date/Time CREATININE - [facility] 1.1 (H) 03/10/2023 12:48 PM CREATININE - [facility] 0.9 01/26/2020 10:35 AM CREATININE, RANDOM URINE - [facility] 26 03/10/2023 12:48 PM CREATININE-OUTSIDE LAB 0.79 08/01/2016 12:00 AM Lab Results Component Value Date/Time POTASSIUM - [facility] 3.9 03/10/2023 12:48 PM POTASSIUM - [facility] 4.1 01/26/2020 10:35 AM POTASSIUM-OUTSIDE LAB 3.4 (A) 08/01/2016 12:00 AM Lab Results Component Value Date/Time TSH - [facility] 2.52 03/10/2023 12:48 PM TSH - [facility] 3.60 01/26/2020 10:35 AM Lab Results Component Value Date/Time LDL CHOLESTEROL (CALCULATED) - [facility] 105 07/10/2022 10:44 AM LDL CHOLESTEROL (CALCULATED) - [facility] 85 02/12/2021 01:29 PM LDL CHOLESTEROL (CALCULATED) - [facility] 131 (H) 01/23/2012 10:47 AM LDL CHOLESTEROL (DIRECT MEASURE) - [facility] 103 03/10/2023 12:48 PM LDL CHOLESTEROL (DIRECT MEASURE) - [facility] 102 07/03/2021 11:58 AM LDL CHOLESTEROL (DIRECT MEASURE) - [facility] NOT APPLICABLE 01/23/2012 10:47 AM Lab Results Component Value Date/Time ALT - [facility] 24 03/10/2023 12:48 PM ALT - [facility] 33 01/26/2020 10:35 AM ALT-OUTSIDE LAB 23 08/01/2016 12:00 AM Hemoglobin AIC Results: Lab Results Component Value Date/Time HEMOGLOBIN A1C - [facility] 6.6 (H) 03/10/2023 12:48 PM HEMOGLOBIN A1C - [facility] 7.8 (H) 07/10/2022 10:44 AM HEMOGLOBIN A1C - [facility] 7.4 (H) 12/31/2021 11:14 AM documented in this encounter Plan of Treatment Upcoming Encounters Date Type Department Care Team (Late st Contact Info) Description 09/01/2023 1:30 PM EDT Office Visit Allergy/Immunology [facility] [place] [address] [place] [address] Aminah Barr MD [address] [facility] [place] [address] 09/09/2023 12:20 PM EDT Office Visit [facility] [address] [place] [address] Eliazar Winston MD [address] [place] [address] 09/28/2023 10:30 AM EDT Office Visit Orthopaedics [facility] [address] [facility] [place] [address] Jonatan Villafuerte, [address] [place] [address] 10/06/2023 10:30 AM EDT Telemedicine Nutrition Services, [facility] [address] [place] [address] Magdalene Klein, [address] [place] [address] Scheduled Procedures Name Priority Associated Diagnoses Date/Ti [...] Additional history exists Albumin/Creatinine Ratio 03/10/2024 03/10/2023, 12/31 Diabetic Foot Exam 03/10/2024 03/10/2023 GFR 03/10/2024 03/10/2023, 040 10/2022, 07/10/2022, Additional history exists TSH 03/10/2024 03/10/2023, 07/2021, 07/03/2021, Additional history exists DTaP,Tdap,and Td Vaccines (3 - Td or Tdap) 07/18/2025 07/18/2015, 06/09/2008 Colonoscopy 08/19/2027 08/18/2017, 08/18/2017 Colorectal Cancer Screening 08/19/2027 Lipid Panel 03/10/2028 03/10/2023, 01/2023, 07/03/2021, Additional history exists Zoster Vaccines [...] Documents on File Type Date Recorded Patient Proofsheet Corrector Expl anation Advance Directives and Living Will 08/23/2018 ADVANCE DIRECTIVE FI VE WISHES Power of Commercial Credit Lead 08/23/2018 POWER OF A TTORNEY FIVE WISHES Care Teams Pipeline Superintendent Division Relationship Specialty Start Date End Date Eliazar Winston MD [address] [place] [address] PCP - General Family Medicine 07/27/18 documented as of this encounter
--- OUTSIDE RECORDS SUMMARY | 2023-09-02 10:10 | External Medical Summary | Summary of Care ---
Author Name Unknown Organization [facility] Address [address] [place] [address] Phone [phone] Care Team Providers Care Parts Sales Associate Name Role Phone Neel Martinez MD Primary Care Provider [phone] Reason for Referral * Evaluate & Treat - Unlimited Visits (Within 30 days (routine)) - Authorized Specialty Diagnoses / Procedures Referred By Selena khan Referred To Contact Otolaryngology Diagnoses Mild persistent asthma without complication Seasonal allergic rhinitis due to pollen Non-seasonal allergic rhinitis due to animal hair and dander Allergic rhinitis due to dust mite Oral allergy syndrome, subsequent encounter Allergy to nuts Chris Frank MD [address] [place] [address] Referral ID Status Reason Start Date Expiration Date Visits Requested Visits Authorized [id number] Authorized Specialty Services Required 09/01/[phone] Question Answer Referral Priority Within 30 days (routine) Where should this appointment be scheduled? [facility] Reason for Referral Nasal/Sinus/Allergy Conditions Specific Condition: Epistaxis (nosebleeds) Reason for Visit * Reason Comments Allergy Return Encounter Details Date Type Department Care Team (Late st Contact Info) Description 09/01/2023 1:30 PM EDT Office Visit Allergy/Immunology [facility] [place] [address] [place] [address] Chris Frank MD [address] [place] [address] Mild persistent asthma without complication*; Seasonal allergic rhinitis due to pollen; Non-seasonal allergic rhinitis due to animal hair and dander; Allergic rhinitis due to dust mite; Oral allergy syndrome, subsequent encounter; Allergy to nuts Allergies Active Allergy Reactions Criticality Noted Date Comments Duloxetine Hcl Nausea/vomiting 08/23/2012 Nutritional Supplements Edema airway,Hives High 10/2017 Can NOT eat any fresh fruit/Vegs Able to eat canned foods Peanut-Containing Drug Products Edema airway,Hives High 08/04/2017 Tree nuts Sulfa Antibiotics 05/08/1999 Nausea/vomiting with gantrisin documented as of this encounter (statuses as of 09/01/2023) Medications Medication Sig Dispensed Refills Start Date End Date Status BENADRYL 25 MG PO CAPS 1 or 2 pills by mouth 4 times a day as needed for itching or allergies 50 Cap 1 10/06/2011 Active SIMILASAN STYE EYE RELIEF OP SOLN 2 drops each as needed 1 mL 0 10/06/2011 Active ibuprofen (MOTRIN) 800 MG Tablet Take 1 Tab by mouth 3 times a day. Take with Meals 90 Tab 0 06/10/2018 Active Meclizine HCl 25 MG Oral Tablet Chewable Take 1 Tablet by mouth 3 times a day as needed. 0 Active topiramate (TOPAMAX) 100 MG Tablet 2 Tablets in the morning and 2 Tablets before bedtime. Take 1 in the AM and [address] Ortega. 90 Tab 0 01/26/2020 Active OneTouch Verio w/Device KitIndications:Type 2 diabetes mellitus with hemoglobin A1c goal of less than 7.0% ([facility]) Use to check blood sugars once per day E11.9 1 Kit 0 11/27/2020 Active LancetsIndications: Type 2 diabetes mellitus with hemoglobin A1c goal of less than 7.0% ([facility]) Use to check blood sugars up to once per day as directed Dx E11.9 100 Each 11 11/27/2020 Active Fluticasone-Salmete rol 250-50 MCG/DOSE Inhalation Aerosol Powder Breath Activated (Advair Diskus) Inhale by mouth 1 Puff in the morning AND 1 Puff before bedtime. Please dispense nonWixela, generic Advair per insurance.. 180 Each 4 09/17/2021 Active valACYclovir HCl 1 GM Oral Tablet (Valtrex)Indication s:Herpes simplex vulvovaginitis Take 1 tab once daily times 5 days 5 Tablet 0 10/25/2021 Active Additional Information Patient not taking.Reported on 09/01/2023 Ondansetron HCl 8 MG Oral Tablet (Zofran)Indications :Nausea TAKE ONE TABLET BY MOUTH EVERY 8 HOURS NEEDED NAUSEA 20 Tablet 0 12/31/2021 Active EPINEPHrine 0.3 MG/0.3ML Injection Solution Auto-injector (Autoinjector)Indic ations:Oral allergy syndrome, subsequent encounter,Allergy to nuts For a severe reaction: Inject in outer thigh following instructions on package and go to the Emergency room. 2 Each 5 06/05/2022 Active Montelukast Sodium 10 MG Oral Tablet (Singulair) Take 1 Tablet by mouth in the morning. 90 Tablet 3 07/10/2022 Active Fluticasone-Salmete rol 250-50 MCG/ACT Inhalation Aerosol Powder Breath Activated (Advair Diskus) Inhale 1 Puff by mouth in the morning and 1 Puff before bedtime. 180 Each 4 09/22/2022 Active OneTouch Verio In Vitro Strip (Glucose Blood)Indications:T ype 2 diabetes mellitus with hemoglobin A1c goal of less than 7.0% ([facility]) USE TO CHECK BLOOD SUGARS ONCE PER DAY E11.9 300 Strip 1 02/25/2023 Active Losartan Potassium 25 MG Oral Tablet (Cozaar)Indications :Essential hypertension with goal blood pressure less than 130/80 TAKE 2 TABLETS BY MOUTH EVERY MORNING 180 Tablet 3 03/03/2023 Active Gabapentin 300 MG Oral Capsule (Neurontin) Take 2 Capsules by mouth in the morning and 2 Capsules at noon and 2 Capsules before bedtime. One tablet in the morning, two tablets at night.. 0 Active Levothyroxine Sodium 25 MCG Oral Tablet (Levoxyl)Indication s:Hypothyroidism, unspecified type TAKE ONE TABLET BY MOUTH EVERY DAY -AT LEAST 30 MINUTES BEFORE BREAKFAST OR OTHER MEDS 90 Tablet 3 04/09/2023 Active Vitamin D (Ergocalciferol) 1.25 MG (44517 UT) Oral Capsule (Drisdol)Indication s:Vitamin D deficiency TAKE 1 CAPSULE BY MOUTH ONE TIME PER WEEK 12 Capsule 3 04/09/2023 Active Jardiance 10 MG Oral Tablet (Empagliflozin) TAKE 1 TABLET BY MOUTH EVERY DAY IN THE MORNING 90 Tablet 1 07/27/2023 Active Fluticasone Propionate 50 MCG/ACT Nasal Suspension (Flonase) ADMINISTER 2 SPRAYS INTO NOSTRIL IN THE MORNING. 48 mL 4 08/04/2023 Active Famotidine 40 MG Oral Tablet (Pepcid) TAKE 1 TABLET BY MOUTH EVERY DAY 90 Tablet 2 08/10/2023 Active Pantoprazole Sodium 40 MG Oral Tablet Delayed Release (Protonix)Indicatio ns:Gastroesophageal reflux disease without esophagitis TAKE 1 TABLET BY MOUTH TWICE A DAY 180 Tablet 2 08/10/2023 Active Atorvastatin Calcium 20 MG Oral Tablet (Lipitor)Indication s:Dyslipidemia TAKE 1 TABLET BY MOUTH EVERY DAY 90 Tablet 2 08/10/2023 Active Cetirizine HCl 10 MG Oral Tablet (ZyrTEC) Take 1 Tablet by mouth in the morning. 90 Tablet 3 09/01/2023 Active Albuterol Sulfate HFA 108 (90 Base) MCG/ACT Inhalation Aerosol SolutionIndications :Mild persistent asthma without complication INHALE 2 PUFFS BY MOUTH EVERY 4 HOURS NEEDED FOR COUGH, SHORTNESS OF BREATH OR WHEEZING. 18 g 5 09/01/2023 Active Albuterol Sulfate HFA 108 (90 Base) MCG/ACT Inhalation Aerosol SolutionIndications :Mild persistent asthma without complication INHALE 2 PUFFS BY MOUTH EVERY 4 HOURS NEEDED FOR COUGH, SHORTNESS OF BREATH OR WHEEZING. 18 g 5 04/30/2021 09/01/19 24 Discontinu ed(Refill) Cetirizine HCl 10 MG Oral Tablet (ZyrTEC) Take 1 Tablet by mouth in the morning. 90 Tablet 3 07/21/2022 09/01/19 24 Discontinu ed(Refill) documented as of this encounter (statuses as of 09/01/2023) Active Problems Problem Noted Date Diagnosed Date [...] as of this encounter (statuses as of 09/01/2023) Resolved Problems Problem Noted Date Diagnosed Date Resolved Date Major depressive disorder with single episode 01/01/2007/10/2022 Prediabetes 11/13/2020 12/31/2021 Overview: Per Prediabetes protocol [...] as of this encounter (statuses as of 09/01/2023) Immunizations Name Administration Dates Next Due COVID-19 mRNA, LNP-s, No Pre serve, 2-Dose Series (Moderna) 10/20/2020,09/22/2020 Covid-19, Mrna, Lnp-s, Pf, B ivalent, 50 Mcg, IM, 12 yrs and above (Moderna) 03/12/2022 Hepatitis B Vaccine, Recombi nant, Adjuvanted, 20 mcg/mL (Heplisav-B) 03/10/2023 Pneumococcal Conjugate Vacci ne, 20-valent ([id number]) 03/10/2023 Pneumococcal Polysaccharide PPV23 (Pneumovax) 03/15/2014 Seasonal [...] Date Smoking Tobacco: Never Smokeless Tobacco: Never Tobacco Cessation:Counseling Given: Not Answered Comments:no passive smoke exposures in the household Alcohol Use Standard Drinks/Week [...] on file documented as of this encounter Last Filed Vital Signs Vital Sign Reading Time Taken Comments Blood Pressure 140/82 09/01/2023 1:09 PM EDT Pulse 62 09/01/2023 1:09 PM EDT Temperature 36.5 C (97.7 F) 09/01/2023 1:09 PM ED T Respiratory Rate 18 09/01/2023 1:09 PM EDT Oxygen Saturation 96% 09/01/2023 1:09 PM EDT Inhaled Oxygen Concentration - - Weight 98.8 kg (217 lb 14.4 oz) 09/01/2023 1:09 PM EDT Height 157.5 cm (5' 2") 09/01/2023 1:09 PM EDT Body Mass Index 39.85 09/01/2023 1:09 PM EDT documented in this encounter Patient Instructions * Patient Instructions* Chris Frank MD - 09/01/2023 1:53 PM EDT Animal Avoidance Measures: Remove pet from home; if unacceptable, keep pet out of the bedroom and off upholstered furniture; wash pet weekly; use HEPA-type air filtration in bedroom (close air ducts); remove feathered pillows/bedding. Dust Mite Avoidance Measures: Essential: Encase mattress, pillow, box springs in allergen-impermeable covers; wash bedding weeklyin hot water(>130 degreesF); reduce indoor humidity to <50%; dust weekly and run HEPA type vacuum shoe cleaner. Desirable: Remove carpets from bedroom and any laid on concrete; minimize upholstered furniture; use HEPA type air filtration in bedroom and family room (close air ducts); remove stuffed toys and collectibles from bedroom. documented in this encounter Progress Notes * Chris Frank MD - 09/01/2023 1:39 PM EDT SUBJECTIVE: Radha is here today for follow up of her allergic rhinitis and conjunctivitis, intermittent asthma, allergies to tree nuts and peanuts. From an asthma standpoint, she has been doing relatively well but still requires use of her albuterol several times per week. There is increased frequency of albuterol use whenever she does have a viral upper respiratory infection or with changes in the weather.There have been no urgent care visits nor any ER visits. In regards to her nasal symptoms, this appears to be generally well controlled overall. She does continue on Zyrtec and Flonase. Overall she denies any excessive rhinorrhea, sneezing, nor postnasal drip. She does get occasional nosebleeds and has discussed perhaps seeing Otolaryngology for possible cauterization of superficial blood vessels. She will occasionally have time periods where she gets significant nasal congestion without any specific trigger. The patient does have a known allergy to peanuts. She does continue to avoid peanuts and tree nuts.There have been no accidental ingestion since our last visit. She does have an EpiPen that is up-to-date in his aware on how to use it. Finally the patient also has a history of oral allergy syndrome in which fresh fruits and vegetables cause her to have an itchy mouth and itchy throat. Over the last several years she thought that this was improving; however more recently, it appears that she still does have issues unless the fruits or vegetables are cooked. Asthma control test obtained on September 17, 2021 revealed a score of 23 which suggest well controlledasthma. Asthma control test obtained on November, revealed a score of 20 suggesting well controlled asthma. Asthma control test obtained on June 13, 2019 revealed a score of 20, suggesting well controlledasthma. Asthma Control Test Summary, Results are Patient Reported The overall score is: 7 suggesting: Poorly Controlled asthma for the survey taken on: 12/12/2019 10:36:17 AM. Asthma Control Test Summary, Results are Patient Reported The overall score is: 20 suggesting: Well Controlled asthma for the survey taken on: 03/11/2019 10:46:50 AM. Asthma Control Test Summary, Results are Patient Reported The overall score is: 21 suggesting: Well Controlled asthma for the survey taken on: 09/09/2018 10:32:28 AM. Patient Active Problem List Diagnosis Code Esophageal reflux K21.9 Vertigo R42 Contact dermatitis and other eczema due to other specified agent L25.8 Asthma, mild persistent J45.30 Oral allergy syndrome T78.1XXA Allergy to nuts Z91.018 Allergic rhinitis J30.9 Allergic conjunctivitis H10.10 Depression with anxiety F41.8 Nocturnal hypoxemia G47.34 Hx of hysterectomy Z90.710 Migraine G43.909 Seizure disorder ([facility]) G40.909 Body mass index (BMI) of 40.0 to 44.9 in adult ([facility]) Z68.41 Type 2 diabetes mellitus with hemoglobin A1c goal of less than 7.0% ([facility]) E11.9 Current Outpatient Medications Medication Sig Dispense Refill BENADRYL 25 MG PO CAPS 1 or 2 pills by mouth 4 times a day as needed for itching or allergies 50 Cap 1 SIMILASAN STYE EYE RELIEF OP SOLN 2 drops each as needed 1 mL 0 ibuprofen (MOTRIN) 800 MG Tablet Take 1 Tab by mouth 3 times a day. Take with Meals 90 Tab 0 Meclizine HCl 25 MG Oral Tablet Chewable Take 1 Tablet by mouth 3 times a day as needed. topiramate (TOPAMAX) 100 MG Tablet 2 Tablets in the morning and 2 Tablets before bedtime. Take 1 inthe AM and [address] Ortega. 90 Tab 0 OneTouch Verio w/Device Kit Use to check blood sugars once per day E11.9 1 Kit 0 Lancets Use to check blood sugars up to once per day as directed Dx E11.9 100 Each 11 Albuterol Sulfate HFA 108 (90 Base) MCG/ACT Inhalation Aerosol Solution INHALE 2 PUFFS BY MOUTH EVERY 4 HOURS NEEDED FOR COUGH, SHORTNESS OF BREATH OR WHEEZING. 18 g 5 Ondansetron HCl 8 MG Oral Tablet (Zofran) TAKE ONE TABLET BY MOUTH EVERY 8 HOURS NEEDED NAUSEA 20 Tablet 0 Montelukast Sodium 10 MG Oral Tablet (Singulair) Take 1 Tablet by mouth in the morning. 90 Tablet 3 Fluticasone-Salmeterol 250-50 MCG/ACT Inhalation Aerosol Powder Breath Activated (Advair Diskus) Inhale 1 Puff by mouth in the morning and 1 Puff before bedtime. 180 Each 4 OneTouch Verio In Vitro Strip (Glucose Blood) USE TO CHECK BLOOD SUGARS ONCE PER DAY E11.9 300 Strip 1 Losartan Potassium 25 MG Oral Tablet (Cozaar) TAKE 2 TABLETS BY MOUTH EVERY MORNING 180 Tablet 3 Gabapentin 300 MG Oral Capsule (Neurontin) Take 2 Capsules by mouth in the morning and 2 Capsules at noon and 2 Capsules before bedtime. One tablet in the morning, two tablets at night.. Levothyroxine Sodium 25 MCG Oral Tablet (Levoxyl) TAKE ONE TABLET BY MOUTH EVERY DAY -AT LEAST 30 MINUTES BEFORE BREAKFAST OR OTHER MEDS 90 Tablet 3 Vitamin D (Ergocalciferol) 1.25 MG (93545 UT) Oral Capsule (Drisdol) TAKE 1 CAPSULE BY MOUTH ONE TIME PER WEEK 12 Capsule 3 Jardiance 10 MG Oral Tablet (Empagliflozin) TAKE 1 TABLET BY MOUTH EVERY DAY IN THE MORNING 90 Tablet 1 Fluticasone Propionate 50 MCG/ACT Nasal Suspension (Flonase) ADMINISTER 2 SPRAYS INTO NOSTRIL IN THE MORNING. 48 mL 4 Famotidine 40 MG Oral Tablet (Pepcid) TAKE 1 TABLET BY MOUTH EVERY DAY 90 Tablet 2 Pantoprazole Sodium 40 MG Oral Tablet Delayed Release (Protonix) TAKE 1 TABLET BY MOUTH TWICE A [id number] Tablet 2 Atorvastatin Calcium 20 MG Oral Tablet (Lipitor) TAKE 1 TABLET BY MOUTH EVERY DAY 90 Tablet 2 Fluticasone-Salmeterol 250-50 MCG/DOSE Inhalation Aerosol Powder Breath Activated (Advair Diskus) Inhale by mouth 1 Puff in the morning AND 1 Puff before bedtime. Please dispense nonWixela, generic Advair per insurance.. 180 Each 4 valACYclovir HCl 1 GM Oral Tablet (Valtrex) Take 1 tab once daily times 5 days (Patient not taking:Reported on 09/01/2023) 5 Tablet 0 EPINEPHrine 0.3 MG/0.3ML Injection Solution Auto-injector (Autoinjector) For a severe reaction: Inject in outer thigh following instructions on package and go to the Emergency room. 2 Each 5 Cetirizine HCl 10 MG Oral Tablet (ZyrTEC) Take 1 Tablet by mouth in the morning. 90 Tablet 3 No current facility-administered medications for this visit. Review of patient's allergies indicates: Allergen Reactions Fruit & Vegetable Daily [Nutritional Supplements] Edema airway and Hives Can NOT eat any fresh fruit/Vegs Able to eat canned foods Peanut-Containing Drug Products Edema airway and Hives Tree nuts Cymbalta [Duloxetine Hcl] Nausea/vomiting Sulfa Antibiotics Nausea/vomiting with gantrisin Family History Adopted: Yes Problem Relation Age of Onset Cancer Father Prob Lung CA, skin ca Asthma Brother Asthma Son Breast Cancer No significant family history Social History Main Topics Tobacco Use: Never no passive smoke exposures in the household Alcohol Use: No Social History Narrative [employer] INFORMATION ENVIRONMENTAL HISTORY: She is now in a 2 story duplex apartment. Gas and electric heat; Air conditioner in the bedroom. There are no pets in the house. Her smokes but usually outside. She does not work outside the home. BP 140/82 (BP Site: Left Arm, BP Position: Sitting) | Pulse 62 | Temp 36.5 C (97.7 F) (Tympanic) | Resp 18 | Ht 1.575 m (5' 2") | Wt 98.8 kg (217 lb 14.4 oz) | SpO2 96% | BMI 39.85 kg/m | BSA 2.08 m PHYSICAL EXAM: No Acute Distress: Conjunctiva: Normal, pt wearing sunglasses TM's: Clear Nose: Pale mucosa, Mild inferior turbinate edema, no polyps, no mucopus Oropharynx: Mild erythema and cobblestoning, no lesions or exudates. Neck: No significant adenopathy Lungs: Clear to A&P, no wheezes Cor: RRR, no murmur Skin: No lesions atopic dermatitis; no urticaria, angioedema OBJECTIVE DATA: Spirometry performed on September 09, 2018 revealed normal spirometry. FEV1/FVC was 81%. FEV1 was 2.89,114% of predicted. FVC was 3.57, 111% of predicted. Chest x-ray performed at [facility] on August 01, 2016 revealed negative chest. Pulmonary function test performed on August 20, 2015 revealed normal spirometry. FEV1/FVC was 82%. FEV1 was 2.89, 107% of predicted. FVC was 3.55, 104% of predicted. Spirometry 03/15/14 revealed an FEV1 / FVC ratio of 81%. FEV1 2.94 L, 110% of predicted. Findings consistent with essentially normal spirometry despite some limitation due to poor effort. 02/21/2013 PFT's Even though the flow volume loops were not well performed, all pulmonary function values are withinnormal limits. The total lung capacity is normal, and there is no air trapping. The vital capacities are normal and there is no obstructive physiology at baseline. However, after inhaled bronchodilator, there is a 12% improvement in FEV1 (300 mL). The diffusing capacity is normal at 82% predicted. IMPRESSION: Normal lung volumes and normal spirometry at baseline. The significant improvement in FEV1 with inhaled bronchodilator is consistent with a diagnosis of reactive airways disease in this nonsmoker. Bronchodilator was given by inhaler rather than by nebulizer. Spirometry done revealed an FEV1 / FVC ratio 62%. FEV1 1.78 L, 64% of predicted findings consistent with moderate moderate obstructive airways disease. Nursing technicians revealed very pooreffort, the patient had to sit down during the procedure because of lightheadedness. Pulmonary function test 08/10/12 revealed slight decreased FEV1/FVC ratio 77%. FEV1 2.78 liters, 101% of predicted. Findings were consistent with mild obstructive airways disease. It should be noted that poor effort was given by the patient throughout the maneuver despite several coaching attempts. Pulmonary function test 10-08-11 revealed essentially normal spirometry. FEV1/FVC ratio was 79%. ZOR0xru 2.59 liters, 93% of predicted. This was in spite of a significantly poor effort as designated by the respiratory nurse truck service technician. CHEST 2 VIEWS - 07/08/11 12:56:00 FINDINGS: The heart is normal in size. There is mild elevation of the right hemidiaphragm. There is questionable subtle infiltrate at the right lung base medially. The left lung is relatively well aerated. There is no pleural effusion seen. IMPRESSION: Mild elevation of right hemidiaphragm. There is questionable subtle infiltrate at the right lung base medially. Pulmonary function test 07-08-11 essentially normal spirometry documented. FEV1/FVC ratio was 80%. FEV1 2.85 liters, 102% of predicted. There was some poor effort noted on technique. Allergen patch test via the T.R.U.E. TEST was performed the week of 07/30/09. Reaction was noted to nickel. All others were negative. Allergy skin tests 05-02-09 revealed significant positive reactions to oak, cedar, mulberry and mixed tree pollens, grass, ragweed, plantain and mixed weed pollens as well as dust mites and cat. Positive food skin tests were documented to peanut, walnut and almond. Negative food skin tests to apple,peach, carrot and celery. Pulmonary function tests revealed findings consistent with normal spirometry. FEV1 was 3.1 liters, 116% of predicted. FEV1/FVC ratio was 91% of predicted. Peak flow rate was 336 liters/minute, 93% ofpredicted. ASSESSMENT: ICD-10-CM 1. Mild persistent asthma without complication J45.30 2. Seasonal allergic rhinitis due to pollen J30.1 3. Non-seasonal allergic rhinitis due to animal hair and dander J30.81 4. Allergic rhinitis due to dust mite J30.89 5. Oral allergy syndrome, subsequent encounter T78.1XXD 6. Allergy to nuts Z91.018 PLAN: In summary, Radha carries a diagnosis of mild persistent asthma, chronic allergic rhinitis with multiple triggers, oral allergy syndrome, and true food allergies to peanuts and tree nuts. Avoidance measures in regards to pollen, animal dander, dust mites, and respiratory irritants are to be continued. In regards to her mild persistent asthma, we do recommend that she continue with Advair 250/50 1 puff twice daily. She was instructed to rinse out her mouth after each use. We also do recommend that she continue on Singulair 10 mg daily. She will continue with use of albuterol 2 puffs every 4-6hours on a as needed basis for any chronic cough, wheezing, or shortness of breath. Should there be any significantly increased frequency of albuterol use, she will contact our office for further management. In regards to her chronic allergic rhinitis, she will continue with Zyrtec 10 mg daily and Flonase 2 sprays each nostril daily. She may also use normal saline sprays or sinus rinses for additional measures. The patient is a candidate for allergen immunotherapy but she would like to defer this for now. She would like to follow up with Otolaryngology given her recurrent nosebleeds and chronic nasalcongestion. In the past peanuts and tree nuts have caused mouth swelling, throat swelling, and urticaria. Henceshe will continue to avoid peanuts and tree nuts. She does have an EpiPen for any systemic reactions and should she use this she will go to the nearest emergency department. In case of accidental ingestion with milder symptoms, she will continue to use Benadryl. The patient does have a history of oral allergy syndrome in which there is cross-reactivity betweencertain raw fruits and raw vegetables and pollen. At the preference of the patient, she will continue to avoid the fruits and vegetables that do tend to bother her in the raw form. Benadryl is to useat the earliest onset of any oropharyngeal symptoms. Thank you very much for allowing myself to participate in the care of your patient. Please do not hesitate to contact our office should you have any questions or concerns overall. Chris Frank MD Allergy and Immunology [facility] I spent a total of 30-39 minutes (exact time 34 mins) on the date of service in preparation, delivery, and documentation of the care provided to Radha Busby excluding any time spent in the performance of separately billed services. (This note was completed using the dictation program Fluency Direct. As such, there may be misspellings, word substitutions, or other variations that should not change the essence of the clinical content of this encounter note.If there is need for further clarification, please direct questions to the provider listed above.) PCP: NEEL MARTINEZ [address], [place] [id number] documented in this encounter Nursing Notes * Reba Grover LPN - 09/01/2023 1:01 PM EDT The pt has been properly identified by confirmation of name and date of . Patient presents forallergy follow up. Patient states trouble breathing at night time, stuffiness, intermittently. documented in this encounter Plan of Treatment Upcoming Encounters Date Type Department Care Team (Late st Contact Info) Description 09/14/2023 2:00 PM EDT Office Visit [facility] [place] [address] [place] [id number] Neel Martinez MD [address] [place] [address] 09/28/2023 10:30 AM EDT Office Visit Orthopaedics [facility] [address] [address] [facility] [address] Jonatan Villafuerte, [address] [facility] [place] [address] 10/06/2023 10:30 AM EDT [facility] [address] [place] [address] Magdalene Klein, RDN [address] [place] [address] 03/02/2024 1:30 PM EDT Office Visit Allergy/Immunology [facility] [address] [facility] [place] [address] Danna Redding PA-C [address] [facility] [place] [address] Scheduled Procedures Name Priority Associated Diagnoses Date/Ti me COLONOSCOPY FLEXIBLE PROXIMA L DIAGNOSTIC Recall Encounter for screening colonoscopy Scheduled Referrals Name Type Priority Associated Diagnoses Order Schedule ADULT/PEDS OTOLARYNGOLOGY REFERRAL OP Referral Within 30 days (routine) Mild persistent asthma without complication Seasonal allergic rhinitis due to pollen Non-seasonal allergic rhinitis due to animal hair and dander Allergic rhinitis due to dust mite Oral allergy syndrome, subsequent encounter Allergy to nuts Ordered: 09/01/2023 Health Maintenance Due Date Last Done Comments [...] as of this encounter Visit Diagnoses Diagnosis Mild persistent asthma without complication- Primary Unspecified asthma Seasonal allergic rhinitis due to pollen Non-seasonal allergic rhinitis due to animal hair and dander Allergic rhinitis due to dust mite Oral allergy syndrome, subsequent encounter Allergy to nuts Allergy to other foods documented in this encounter Advance Directives Documents on File Type Date Recorded Patient Inspector Open Die Expl anation Advance Directives and Living Will 08/23/2018 ADVANCE DIRECTIVE FI VE WISHES Power of Greeter 08/23/2018 POWER OF A TTORNEY FIVE WISHES Care Teams Parts Sales Associate Relationship Specialty Start Date End Date Neel Martinez MD [address] [place] [address] PCP - General Family Medicine 07/27/18 documented as of this encounter
[2023-09-02] MEDS: INSULIN ASPART PER UNIT CHARGE SC SCH (10:48)
--- NOTE | 2023-09-02 17:28 | Hospitalist Progress Note ---
Date of Service September 02, 2023 Assessment & Plan (1) Seizure: Plan: 58-year-old female with past medical history significant for type 2 diabetes, asthma mild persistent, allergic rhinitis, nocturnal hypoxemia, obesity, GERD, contact dermatitis and eczema, migraines, seizure disorder, vertigo, allergic to nuts, depression with anxiety, light sensitivity, presents with seizures. Patient states since yesterday and today she had 3 episodes of seizures. Her in the room. Today she had ujsz-gr-ymyx seizures. Where she shook all over the body. And she was unresponsive for about 20 minutes. And she was Somewhat confused after that. Patient is currently alert and awake. Able to answer questions. States she has some trouble concentrating. No recent fevers. She states she has headaches on and off. Gets chest pains on and off. Shortness of breath on and off. Nausea on and off. Some runny nose. Appetite is okay. Currently no abdominal pain. Normal bowel and bladder movements. Ambulates with a walker. Afebrile. Seizure-like spells --CT Head:No acute intracranial hemorrhage, midline shift, or mass effect. Insetting of anxiety, depression H/O seizures Atypical for GTC seizure per neurology Neurontin dose increased to 900 mg a.m., 600 mg noon and 900 mg p.m. Continue Topamax Appreciate neurology input PT OT as able May benefit from neurology follow-up on discharge DM II HbA1c 6.3 Continue insulin while hospitalized Monitor BGs Obesity Nocturnal hypoxia BMI 38 Obtain nocturnal oximetry study Will need sleep study as outpatient GERD continue Famotidine and Protonix Asthma No signs of acute exacerbation Continue home inhalers Hyperlipidemia continue statin Hypertension continue losartan monitor Hypothyroidism Continue levothyroxine DVT Px: Lovenox SQ Code Status Full code Admission and Anticipated Discharge Date Admission Date: September 02, 2023 Subjective Patient is seen and examined at bedside States feeling very tired and has generalized weakness Offers no other complaints Discussed with neurology today Denies any chest pain, dyspnea, dizziness, nausea, vomiting, abdominal pain Review of Systems Review of Systems: All systems reviewed & are unremarkable except as noted in Subjective Physical Exam Physical Exam: Physical Exam: Vitals signs as noted above General Appearance:Obese, no apparent distress Head: normocephalic, Atraumatic Eyes: normal inspection, EOMI Neck: supple, Trachea midline Respiratory/Chest: Normal breath sounds, CTA, No accessory muscle use Cardiovascular: S1, S2, No murmur Abdomen/GI:Soft, Non tender, Bowel sounds present Extremities/Musculoskeletal:normal inspection, no edema Neurologic/Psych:AAOX3, grossly no focal neurological deficits Skin: normal color, warm Results & Data Results & Data Vital Signs (Past 12 Hours) Vital Signs Pulse Pulse Resp BP BP Pulse Ox O2 Del Method 09/02/23 15:22 61 09/02/23 14:40 62 18 117/82 92 Room Air 09/02/23 12:18 61 18 94 Room Air 09/02/23 10:39 59 L 18 121/73 92 Room Air 09/02/23 10:00 58 L 14 126/74 100 09/02/23 09:31 60 14 131/83 100 09/02/23 09:00 60 17 128/76 100 09/02/23 08:49 59 L 09/02/23 08:41 55 L 18 138/84 100 Nasal Cannula 09/02/23 08:40 59 L 19 138/84 79 L 09/02/23 06:00 61 18 116/63 99 Nasal Cannula O2 Flow Rate 09/02/23 15:22 09/02/23 14:40 09/02/23 12:18 09/02/23 10:39 09/02/23 10:00 09/02/23 09:31 09/02/23 09:00 09/02/23 08:49 09/02/23 08:41 2 09/02/23 08:40 09/02/23 06:00 2 Laboratory Results Short CBC 09/01/23 09/02/23 Range/Units 23:14 08:03 WBC 6.29 4.92 (4.8-10.8) K/ul Hgb 14.3 13.3 (12.0-16.0) g/dl Hct 46.4 42.7 (37.0-47.0) % Plt Count 200 177 (130-400) K/uL BMP 09/01/23 09/02/23 23:14 08:03 Sodium 140 143 Potassium 3.3 L 4.6 D Chloride 106 112 H Carbon Dioxide 25 27 BUN 16 16 Creatinine 0.99 0.89 Glucose 125 H 114 H Calcium 9.3 8.9 Liver Function 09/01/23 Range/Units 23:14 Total Bilirubin 0.4 (0.2-1.0) mg/dl AST 20 (13-39) U/L ALT 19 (7-52) U/L Alkaline Phosphatase 58 (34-104) U/L Albumin 4.7 (3.4-5.0) gm/dl
[2023-09-02] MEDS: ATORVASTATIN 20 MG TAB PO SCH (22:19)
[2023-09-02] MEDS: PANTOprazole 40 MG TAB PO SCH (22:20)
[2023-09-03 07:16] LABS: Hematocrit (blood only) 42.8 % (37.0-47.0); Hemoglobin 13.4 g/dl (12.0-16.0); Mean Corpuscular Hemoglobin 25.9 pg (25.0-34.0); Mean Corpuscular Hgb Conc 31.3 g/dL (32.0-36.0); Mean Corpuscular Volume 82.6 fL (80.0-100.0); Mean Platelet Volume 11.3 fL (9.4-12.4); Platelet Count 177 K/uL (130-400); RDW Coefficient of Variation 13.8 % (11.5-14.5); RDW Standard Deviation 41.5 fL (36.4-46.3); Red Blood Count 5.18 M/uL (4.20-5.40); White Blood Count 5.04 K/ul (4.8-10.8)
[2023-09-03 07:35] LABS: BUN Creatinine Ratio 21.4 (10-20); Calcium 8.8 mg/dl (8.6-10.3); Creatinine Clr Calc Pharmacy 80.4 ml/min; Est GFR (African American) 88.2 ml/min; Est GFR (Non-African American) 76.1 ml/min; Potassium 3.7 mmol/L (3.5-5.1)
--- NOTE | 2023-09-03 12:10 | Neurology Progress Note ---
Date of Service September 03, 2023 Assessment & Plan (1) Nonepileptic episode: Admission and Anticipated Discharge Date Admission Date: September 02, 2023 Subjective pt apparently had spell just now. pt now back to baseline. pt describes seeing spots and just out of focus. no post event confusion and no tongue biting or bowel/bladder loss. pt looks very comfortable. Results & Data Vital Signs (Past 12 Hours) Vital Signs Temp Pulse Pulse Pulse Resp BP BP 09/03/23 11:30 36.7 C 61 16 136/74 09/03/23 07:00 36.4 C L 67 16 129/79 09/03/23 03:28 36.6 C 60 17 102/65 09/03/23 03:15 64 09/03/23 00:36 61 09/03/23 00:34 09/03/23 00:21 36.9 C 60 18 133/83 Pulse Ox Pulse Ox O2 Del Method O2 Del Method 09/03/23 11:30 95 Room Air 09/03/23 07:00 94 Room Air 09/03/23 03:28 96 Room Air 09/03/23 03:15 91 Room Air 09/03/23 00:36 09/03/23 00:34 Room Air 09/03/23 00:21 97 Room Air Exam (Neuro) Physical Exam: Neuro: Mental: AOx4, fluent speech, normal comprehension, no apraxia, no L/R confusion, no neglect CN:Full EOM, symmetric face, intact sensation t/o face, Motor: No abnormal movements, normal tone and bulk Gait: intact grossly Impression: 58 yo female with spells again, appears to be nonepileptic. Recommendations: continue increase dose of neurontin continue topamax EEG in process, if normal, pt can be discharged as planned. pt agree. pt can f/u with her neurologist as routine f/u. Chart reviewed I have spent more than 50% educating patient about potential diagnosis and neurological evaluation and coordinating care with patient's treatment team. Total time spent (including chart review and coordination of care): 35 min (this includes chart review). PG Care Time/CCT Total # of Minutes Spent Total Time Spent with Patient: Total time spent is greater than 50% in coordination of care (as documented) at patient's floor/unit and/or counseling patient: Coding Level of Care Code 40168 SUB INP/OBS CARE MIN Diagnoses Nonepileptic episode R56.9
[2023-09-03] MEDS: levETIRAcetam IV 1,000 MG in 0.9 % SODIUM CHLORIDE 100 ML IV STA (12:18)
--- NOTE | 2023-09-03 12:36 | Electroencephalogram ---
EEG Procedure Note Date of Service September 03, 2023 Start / End Times Start Time: 1222 End Time: 1242 Referring Physician joelle argueta History spells Home Medication List Medication Instructions Recorded Confirmed Type albuterol sulfate 90 mcg/actuation 2 - 4 puff inhalation Q6H PRN 08/14/18 09/01/23 History aerosol inhaler (Ventolin HFA) Shortness Of Breath Or Wheezing cetirizine 10 mg tablet (Zyrtec) 10 mg PO QAM 08/14/18 09/01/23 History epinephrine 0.3 mg/0.3 mL 0.3 mg IM Q3H PRN Anaphylaxis 08/14/18 09/01/23 History injection, auto-injector (EpiPen) ergocalciferol (vitamin D2) 1,250 50,000 unit PO WK 08/14/18 09/01/23 History mcg (50,000 unit) capsule (Vitamin D2) fluticasone propionate 50 2 spray intranasal QAM 08/14/18 09/01/23 History mcg/actuation nasal spray,suspension (Flonase Allergy Relief) levothyroxine 25 mcg tablet 25 mcg PO QAM 08/14/18 09/01/23 History pantoprazole 40 mg tablet,delayed 40 mg PO HS 08/14/18 09/01/23 History release (Protonix) ranitidine HCl 150 mg tablet 150 mg PO BID 08/14/18 09/01/23 History azelastine 137 mcg (0.1 %) nasal 1 sprays intranasal BID 12/22/19 09/01/23 History spray aerosol fluticasone 250 mcg-salmeterol 50 1 puffs inhalation BID 12/22/19 09/01/23 History mcg/dose blistr powdr for inhalation fluticasone propionate 110 1 puffs inhalation BID 12/22/19 09/01/23 History mcg/actuation HFA aerosol inhaler atorvastatin 20 mg tablet 20 mg PO QPM dyslipidemia 07/15/21 09/01/23 History meclizine 25 mg chewable tablet 25 mg PO DAILY PRN dizziness 02/06/22 09/01/23 History (Bonine) diclofenac sodium 1 % topical gel 2 g topical QID PRN Pain 08/04/22 09/01/23 History (Voltaren Arthritis Pain) diphenhydramine HCl 25 mg capsule 25 mg PO TID PRN 02/04/23 09/01/23 History (Benadryl) ITCHING/RESTLESSNESS empagliflozin 10 mg tablet 10 mg PO DAILY 02/04/23 09/01/23 History (Jardiance) famotidine 40 mg tablet 40 mg PO DAILY 02/04/23 09/01/23 History lidocaine (PF) 40 mg/mL (4 %) 40 mg IM Q3MO 02/04/23 09/01/23 History injection solution ondansetron 8 mg disintegrating 8 mg PO Q8H PRN NAUSEA/VOMITING 02/04/23 09/01/23 History tablet losartan 25 mg tablet 50 mg PO DAILY 05/12/23 09/01/23 History topiramate 200 mg tablet 200 mg PO BID 90 days #180 tabs 08/31/23 09/01/23 Rx gabapentin 300 mg capsule 600 mg PO TID 09/01/23 09/01/23 History Inpatient Medication List Atorvastatin Calcium (Atorvastatin 20 Mg Tab) 20 mg PO QPM [facility] Stop: 10/02/23 20:59 Last Admin: 09/02/23 22:19 Dose: 20 mg Documented By: TOYA Azelastine HCl (Azelastine Hcl 0.1% Nasal 200 Sprays/27,400 Mcg Btl) 1 sprays NA BID [facility] Stop: 10/02/23 08:59 Last Admin: 09/03/23 07:57 Dose: 1 sprays Documented By: Admin: 09/02/23 22:20 Dose: 1 sprays Documented By: Admin: 09/02/23 08:42 Dose: 1 sprays Documented By: LAURA Cetirizine HCl (Cetirizine Hcl 10 Mg Tablet) 10 mg PO QAM [facility] Stop: 10/02/23 08:59 Last Admin: 09/03/23 07:58 Dose: 10 mg Documented By: Admin: 09/02/23 08:47 Dose: 10 mg Documented By: LAURA Enoxaparin Sodium (Enoxaparin Inj 40 Mg/0.4 Ml Syr) 40 mg SQ Q24H [facility] Stop: 10/02/23 08:59 Last Admin: 09/03/23 07:57 Dose: 40 mg Documented By: Admin: 09/02/23 08:51 Dose: 40 mg Documented By: LAURA Famotidine (Famotidine 40 Mg Tablet) 40 mg PO DAILY [facility] Stop: 10/02/23 08:59 Last Admin: 09/03/23 07:57 Dose: 40 mg Documented By: Admin: 09/02/23 08:48 Dose: 40 mg Documented By: LAURA Fluticasone Propionate (Fluticasone Propionate Na Spr 16 Gm Btl) 2 sprays NA QAM [facility] Stop: 10/02/23 08:59 Last Admin: 09/03/23 09:06 Dose: 2 sprays Documented By: Admin: 09/02/23 08:44 Dose: 2 sprays Documented By: LAURA Fluticasone/Vilanterol (Fluticasone/Vilanterol 100/25mcg 14 Puffs/Inhaler) 1 puffs INH DAILY [facility] Stop: 10/02/23 08:59 Last Admin: 09/03/23 09:06 Dose: 1 puffs Documented By: Admin: 09/02/23 08:45 Dose: 1 puffs Documented By: LAURA Gabapentin (Gabapentin 300 Mg Cap) 900 mg PO BID [facility] Stop: 10/02/23 20:59 Last Admin: 09/03/23 07:57 Dose: 900 mg Documented By: Admin: 09/02/23 22:19 Dose: 900 mg Documented By: TOYA Gabapentin (Gabapentin 300 Mg Cap) 600 mg PO DAILY@1200 [facility] Stop: 10/02/23 11:59 Last Admin: 09/02/23 13:34 Dose: 600 mg Documented By: BRANDON Insulin Aspart (Insulin Aspart Per Unit Charge) 0 units SC ACHS [facility] Stop: 10/02/23 07:29 Last Admin: 09/03/23 11:38 Dose: Not Given Documented By: Admin: 09/03/23 08:10 Dose: Not Given Documented By: Admin: 09/02/23 22:16 Dose: Not Given Documented By: Admin: 09/02/23 18:42 Dose: Not Given Documented By: Admin: 09/02/23 13:34 Dose: 1 units Documented By: BRANDON Co-signed By: NORMA Admin: 09/02/23 10:48 Dose: Not Given Documented By: BRANDON Levothyroxine Sodium (Levothyroxine Sodium 25 Mcg Tablet) 25 mcg PO DAILYBB [facility] Stop: 10/02/23 06:29 Last Admin: 09/03/23 06:37 Dose: 25 mcg Documented By: Admin: 09/02/23 06:43 Dose: 25 mcg Documented By: SUBHA Losartan Potassium (Losartan Potassium 50 Mg Tab) 50 mg PO DAILY [facility] Stop: 10/02/23 08:59 Last Admin: 09/03/23 07:58 Dose: 50 mg Documented By: Admin: 09/02/23 08:49 Dose: 50 mg Documented By: LAURA Pantoprazole Sodium (Pantoprazole 40 Mg Tab) 40 mg PO HS [facility] Stop: 10/02/23 20:59 Last Admin: 09/02/23 22:20 Dose: 40 mg Documented By: TOYA Topiramate (Topiramate 100 Mg Tab) 200 mg PO BID [facility] Stop: 10/02/23 08:59 Last Admin: 09/03/23 07:58 Dose: 200 mg Documented By: Admin: 09/02/23 22:20 Dose: 200 mg Documented By: Admin: 09/02/23 08:49 Dose: 200 mg Documented By: LAURA Discontinued Medications Gabapentin (Gabapentin 300 Mg Cap) 600 mg PO TID [facility] Stop: 10/02/23 08:59 Last Admin: 09/02/23 08:48 Dose: 600 mg Documented By: LAURA Hydromorphone HCl (Hydromorphone Inj 0.5 Mg/0.5 Ml Syr) 0.5 mg IV NOW STA Stop: 09/02/23 01:51 Last Admin: 09/02/23 02:47 Dose: 0.5 mg Documented By: SUBHA Sodium Chloride (Nss) 1,000 mls @ 999 mls/hr IV .Q1H1M ONE Stop: 09/02/23 00:32 Last Infusion: 09/02/23 01:56 Dose: Infused Documented By: Admin: 09/02/23 00:01 Dose: 999 mls/hr Documented By: SUBHA Potassium Chloride (K Burak / Wtr) 10 meq in 100 mls @ 100 mls/hr IV Q1H [facility]ADIMIR Stop: 09/02/23 03:14 Last Infusion: 09/02/23 04:17 Dose: Infused Documented By: Admin: 09/02/23 02:48 Dose: 100 mls/hr Documented By: Infusion: 09/02/23 02:47 Dose: Infused Documented By: Admin: 09/02/23 01:37 Dose: 100 mls/hr Documented By: SUBHA Sodium Chloride (Nss) 1,000 mls @ 75 mls/hr IV .[id number] [facility] Stop: 09/02/23 16:29 Last Infusion: 09/02/23 19:14 Dose: Infused Documented By: Admin: 09/02/23 04:00 Dose: 75 mls/hr Documented By: SUBHA Levetiracetam 500 mg/ Sodium (Chloride) 105 mls @ 420 mls/hr IV Q12H [facility] Stop: 10/02/23 08:59 Last Infusion: 09/02/23 10:18 Dose: Infused Documented By: Admin: 09/02/23 08:51 Dose: 420 mls/hr Documented By: LAURA Levetiracetam 1,000 mg/ Sodium (Chloride) 110 mls @ 440 mls/hr IV NOW STA Stop: 09/03/23 11:57 Last Admin: 09/03/23 12:18 Dose: 440 mls/hr Documented By: NOLA Levetiracetam (Levetiracetam 500 Mg/5 Ml Vial) 1,950 mg 20 mg/kg (1950 mg) IV NOW STA Stop: 09/01/23 23:33 Last Admin: 09/02/23 00:01 Dose: 1,950 mg Documented By: SUBHA Potassium Chloride (Potassium Chloride Crtab 20 Meq Tabcr) 40 meq PO NOW STA Stop: 09/02/23 00:20 Last Admin: 09/02/23 01:03 Dose: Not Given Documented By: SUBHA Description This is a 21 electrode EEG with a single channel dedicated to limited EKG. The electrodes were placed in accordance with the International 10-20 system. Interpretation This is a 21 electrode EEG with a single channel dedicated to limited EKG. The electrodes were placed in accordance with the International 10-20 system. There is a posterior dominant rhythm of 9 Hz which is symmetrically distributed and attenuates with eye opening. There is a normal anterior to posterior organization. Photic stimulation: unremarkable Hyperventilation performed: ___ unremarkable; _x_ not performed. There is no focal slowing. No epileptiform abnormalities. Sleep stage: __x not achieved, ___drowsy state, ___ Stage II, ___ REM stage achieved. Interpretation Normal-appearing awake EEG. [facility] EEG Procedure Codes Indication for Procedure (1) Nonepileptic episode: Neurology Neurology: 03522 EEG include record awake & drowsy
--- NOTE | 2023-09-03 13:33 | Hospitalist Progress Note ---
Date of Service September 03, 2023 Assessment & Plan (1) Seizure: Plan: 58-year-old female with past medical history significant for type 2 diabetes, asthma mild persistent, allergic rhinitis, nocturnal hypoxemia, obesity, GERD, contact dermatitis and eczema, migraines, seizure disorder, vertigo, allergic to nuts, depression with anxiety, light sensitivity, presents with seizures. Patient states since yesterday and today she had 3 episodes of seizures. Her in the room. Today she had dzbo-sj-nawu seizures. Where she shook all over the body. And she was unresponsive for about 20 minutes. And she was Somewhat confused after that. Patient is currently alert and awake. Able to answer questions. States she has some trouble concentrating. No recent fevers. She states she has headaches on and off. Gets chest pains on and off. Shortness of breath on and off. Nausea on and off. Some runny nose. Appetite is okay. Currently no abdominal pain. Normal bowel and bladder movements. Ambulates with a walker. Afebrile. Seizure-like spells---Likely Pseudo seizures --CT Head:No acute intracranial hemorrhage, midline shift, or mass effect. Insetting of anxiety, depression H/O seizures --EEG:Normal-appearing awake EEG. Atypical for GTC seizure per neurology Neurontin dose increased to 900 mg a.m., 600 mg noon and 900 mg p.m. Continue Topamax Appreciate neurology input PT OT as able May benefit from neurology follow-up on discharge Plan to discharge home today DM II HbA1c 6.3 Continue insulin while hospitalized Monitor BGs Obesity Nocturnal hypoxia BMI 38 Obtain nocturnal oximetry study Will need sleep study as outpatient GERD continue Famotidine and Protonix Asthma No signs of acute exacerbation Continue home inhalers Hyperlipidemia continue statin Hypertension continue losartan monitor Hypothyroidism Continue levothyroxine DVT Px: Lovenox SQ Code Status Full code Admission and Anticipated Discharge Date Admission Date: September 02, 2023 Subjective Patient is seen and examined at bedside Patient had another seizure-like activity this morning involving clenched extremities Discussed with neurology today Patient states having mild headache which she attributes to chronic migraine Updated patient's family over the phone Had EEG earlier today Denies any chest pain, dyspnea, dizziness, nausea, vomiting, abdominal pain Plan to be discharged home today Review of Systems Review of Systems: All systems reviewed & are unremarkable except as noted in Subjective Physical Exam Physical Exam: Physical Exam: Vitals signs as noted above General Appearance:Obese, no apparent distress Head: normocephalic, Atraumatic Eyes: normal inspection, EOMI Neck: supple, Trachea midline Respiratory/Chest: Normal breath sounds, CTA, No accessory muscle use Cardiovascular: S1, S2, No murmur Abdomen/GI:Soft, Non tender, Bowel sounds present Extremities/Musculoskeletal:normal inspection, no edema Neurologic/Psych:AAOX3, grossly no focal neurological deficits Skin: normal color, warm Results & Data Results & Data Vital Signs (Past 12 Hours) Vital Signs Temp Pulse Pulse Resp BP BP Pulse Ox 09/03/23 11:30 36.7 C 61 16 136/74 95 09/03/23 07:00 36.4 C L 67 16 129/79 94 09/03/23 03:28 36.6 C 60 17 102/65 96 09/03/23 03:15 64 Pulse Ox O2 Del Method O2 Del Method 09/03/23 11:30 Room Air 09/03/23 07:00 Room Air 09/03/23 03:28 Room Air 09/03/23 03:15 91 Room Air Laboratory Results Short CBC 09/03/23 Range/Units 06:23 WBC 5.04 (4.8-10.8) K/ul Hgb 13.4 (12.0-16.0) g/dl Hct 42.8 (37.0-47.0) % Plt Count 177 (130-400) K/uL BMP 09/03/23 06:23 Sodium 141 Potassium 3.7 Chloride 112 H Carbon Dioxide 23 BUN 18 Creatinine 0.84 Glucose 101 H Calcium 8.8
--- NOTE | 2023-09-03 13:49 | Discharge Summary ---
Date of Service September 03, 2023 Admission HPI Per Admitting Provider 58-year-old female with past medical history significant for type 2 diabetes, asthma mild persistent, allergic rhinitis, nocturnal hypoxemia, obesity, GERD, contact dermatitis and eczema, migraines, seizure disorder, vertigo, allergic to nuts, depression with anxiety, light sensitivity, presents with seizures. Patient states since yesterday and today she had 3 episodes of seizures. Her in the room. Today she had [id number] seizures. Where she shook all over the body. And she was unresponsive for about 20 minutes. And she was Somewhat confused after that. Patient is currently alert and awake. Able to answer questions. States she has some trouble concentrating. No recent fevers. She states she has headaches on and off. Gets chest pains on and off. Shortness of breath on and off. Nausea on and off. Some runny nose. Appetite is okay. Currently no abdominal pain. Normal bowel and bladder movements. Ambulates with a walker. Afebrile. Admission Exam Per Admitting Provider General- Not in distress Head- atraumatic Eyes- PERRL. ENT- oropharynx clear Neck- supple, no JVD. Lungs- clear to auscultation , no wheezing or crackles. Heart- regular rhythm; no murmur, no gallop. Abdomen- normal bowel sounds, soft, nontender, no distension. Extremities- no pretibial edema, no erythema seen Neuro- alert, oriented ; PERRL no facial palsy; no dysarthria; moves extremities Principal Diagnosis Seizure-like activity likely pseudoseizures H/O seizure disorder Discharge Data Allergies Allergy/AdvReac Type Severity Reaction Status Date / Time Sulfa (Sulfonamide AdvReac Intermediate GI SYMPTOMS Verified 09/01/23 23:27 Antibiotics) various allergies Allergy Severe Anaphylaxis Uncoded 09/01/23 23:27 Consultations 09/02/23 01:23 ED Decision to Admit Stat 09/02/23 08:00 Consult Neurology Routine Procedures Performed Laboratory Results WBC 5.04 K/ul (4.8-10.8) 09/03/23 06:23 RBC 5.18 M/uL (4.20-5.40) 09/03/23 06:23 Hgb 13.4 g/dl (12.0-16.0) 09/03/23 06:23 Hct 42.8 % (37.0-47.0) 09/03/23 06:23 MCV 82.6 fL (80.0-100.0) 09/03/23 06:23 MCH 25.9 pg (25.0-34.0) 09/03/23 06:23 MCHC 31.3 g/dL (32.0-36.0) L 09/03/23 06: RDW Std Deviation 41.5 fL (36.4-46.3) 09/03/23 06: RDW Coeff of Faustino 13.8 % (11.5-14.5) 09/03/23 06:23 Plt Count 177 K/uL (130-400) 09/03/23 06:23 MPV 11.3 fL (9.4-12.4) 09/03/23 06:23 Immature Gran % (Auto) 0.4 % 09/02/23 08:03 Neut % (Auto) 59.2 % 09/02/23 08:03 Lymph % (Auto) 30.7 % 09/02/23 08:03 Caswell % (Auto) 7.9 % 09/02/23 08:03 Eos % (Auto) 1.4 % 09/02/23 08:03 Baso % (Auto) 0.4 % 09/02/23 08:03 Neut # (Auto) 2.91 K/uL (1.40-6.50) 09/02/23 08:03 Lymph # (Auto) 1.51 K/uL (1.20-3.40) 09/02/23 08:03 Caswell # (Auto) 0.39 K/uL (0.11-0.59) 09/02/23 08:03 Eos # (Auto) 0.07 K/uL (0.00-0.50) 09/02/23 08:03 Baso # (Auto) 0.02 K/uL (0.00-0.20) 09/02/23 08:03 Immature Gran # (Auto) 0.02 K/uL (0.01-0.20) 09/02/23 08:03 Sodium 141 mmol/L (136-145) 09/03/23 06:23 Potassium 3.7 mmol/L (3.5-5.1) 09/03/23 06:23 Chloride 112 mmol/L (98-107) H 09/03/23 06:23 Carbon Dioxide 23 mmol/L (21-32) 09/03/23 06:23 Anion Gap 6 (3-11) 09/03/23 06:23 BUN 18 mg/dl (6-23) 09/03/23 06:23 Creatinine 0.84 mg/dl (0.6-1.2) 09/03/23 06:23 Est Cr Clr Drug Dosing 80.4 ml/min 09/03/23 06:23 Est GFR ( Amer) 88.2 ml/min 09/03/23 06:23 Est GFR (Non-Af Amer) 76.1 ml/min 09/03/23 06:23 BUN/Creatinine Ratio 21.4 (10-20) H 09/03/23 06:23 Glucose 101 mg/dl (70-99(Fasting)) H 09/03/23 06:23 POC Glucose 93 mg/dl (70-99) 09/03/23 11:27 Estimat Average Glucose 134 mg/dl 09/02/23 08:03 Hemoglobin A1c 6.3 % (4.5-5.6) H 09/02/23 08:03 Calcium 8.8 mg/dl (8.6-10.3) 09/03/23 06:23 Magnesium 2.0 mg/dl (1.7-2.4) 09/03/23 06:23 Total Bilirubin 0.4 mg/dl (0.2-1.0) 09/01/23 23:14 AST 20 U/L (13-39) 09/01/23 23:14 ALT 19 U/L (7-52) 09/01/23 23:14 Alkaline Phosphatase 58 U/L (34-104) 09/01/23 23:14 Troponin I High Sens 4.2 pg/ml (0-14) 09/02/23 08:03 Total Protein 7.8 gm/dl (6.0-8.3) 09/01/23 23:14 Albumin 4.7 gm/dl (3.4-5.0) 09/01/23 23:14 Globulin 3.1 gm/dl (2.5-4.0) 09/01/23 23:14 Albumin/Globulin Ratio 1.5 (0.9-2) 09/01/23 23:14 Lipase 21 U/L (11-82) 09/01/23 23:14 Impressions Chest X-Ray 09/01/23 23:12 XR chest 1V portable CLINICAL HISTORY: Chest pain, nonspecific TECHNIQUE: Single frontal radiograph of the chest was obtained. Comparison: Comparison is made to chest radiograph 08/07/2022 FINDINGS: No lines and tubes are seen. The cardiomediastinal silhouette is normal. The lungs are clear. No evidence of pleural effusion or pneumothorax. IMPRESSION: No acute chest disease. ACT 112: Negative or not required by law. Electronically signed by: Ralph York M.D. 09/02/2023 7:[address] 09/01/23 23:32 Exam(s): CT HEAD Without Contrast EXAM: CT Head Without Intravenous Contrast CLINICAL HISTORY: Reason for exam: seizure. TECHNIQUE: Axial computed tomography images of the head/brain without intravenous contrast. Automated exposure control was utilized for the study. A dose lowering technique was utilized adhering to the principles of ALARA. COMPARISON: No relevant prior studies available. FINDINGS: No acute intracranial hemorrhage. No midline shift or mass effect. The territorial ordoñez-white matter differentiation is maintained throughout. The ventricles and sulci are commensurate with age. The visualized orbits appear grossly unremarkable. The calvarium is intact. The visualized paranasal sinuses and mastoid air cells are grossly clear. IMPRESSION: No acute intracranial hemorrhage, midline shift, or mass effect. Electronically signed by: Chris Escobedo MD 09/02/23 00:50 AM Ordered Studies 09/01/23 23:32 CT head/brain wo con Stat Hospital Course (1) Seizure: 58-year-old female with past medical history significant for type 2 diabetes, asthma mild persistent, allergic rhinitis, nocturnal hypoxemia, obesity, GERD, contact dermatitis and eczema, migraines, seizure disorder, vertigo, allergic to nuts, depression with anxiety, light sensitivity, presents with seizures. Patient states since yesterday and today she had 3 episodes of seizures. Her in the room. Today she had [id number] seizures. Where she shook all over the body. And she was unresponsive for about 20 minutes. And she was Somewhat confused after that. Patient is currently alert and awake. Able to answer questions. States she has some trouble concentrating. No recent fevers. She states she has headaches on and off. Gets chest pains on and off. Shortness of breath on and off. Nausea on and off. Some runny nose. Appetite is okay. Currently no abdominal pain. Normal bowel and bladder movements. Ambulates with a walker. Afebrile. Seizure-like spells---Likely Pseudo seizures --CT Head:No acute intracranial hemorrhage, midline shift, or mass effect. Insetting of anxiety, depression H/O seizures --EEG:Normal-appearing awake EEG. Atypical for GTC seizure per neurology Neurontin dose increased to 900 mg a.m., 600 mg noon and 900 mg p.m. Continue Topamax Appreciate neurology input PT OT as able May benefit from neurology follow-up on discharge Plan to discharge home today DM II HbA1c 6.3 Continue insulin while hospitalized Monitor BGs Obesity Nocturnal hypoxia BMI 38 Obtain nocturnal oximetry study Will need sleep study as outpatient GERD continue Famotidine and Protonix Asthma No signs of acute exacerbation Continue home inhalers Hyperlipidemia continue statin Hypertension continue losartan monitor Hypothyroidism Continue levothyroxine DVT Px: Lovenox SQ Code Status Full code Disposition Home Total Time Total Time Spent Total Time Spent (In Minutes): 66 minutes Discharge Plan Discharge Items Patient Disposition: Home - Self-Care Reason For Visit: SEIZURE Discharge Diagnosis: Seizure-like activity likely pseudoseizures H/O seizure disorder Activity: Per Instructions section Exercise/Sports: Gradually increase as tolerated Non-emergency contact: Primary Care Provider and Neurologist Call non-emergency contact if: you have any medication questions, your symptoms worsen, your pain is concerning for you and you have a fever Follow-up/Referrals: Brett Ortega MD [Physician] - (The [facility] Neurology office is aware of your discharge and will contact you for a follow up appointment. If you do not rec eive a call, please contact the Neurology office. ) Eliazar Winston MD [Primary Care Provider] - (Date & Time 09/07/2023 2:20 PM Provider Eliazar Winston MD [facility] ) Diet: Carb Consistent or DM2 and Heart Healthy Addtl Attending Provider Instructions: Follow-up with your primary care physician Dr. Winston in 1 week Follow-up with your neurologist in 2 to 3 weeks as recommended --No driving permitted until cleared by your neurologist -Get sleep study as outpatient to rule out sleep apnea Seek immediate medical attention if your symptoms reoccur or worsen Please take all medications as instructed on discharge list below. Please call if you have any questions or problems. You can reach a [facility] hospitalist on duty at [facility] 24 hours a day by calling [phone] Pending Studies at Discharge: No Stand-Alone Forms: [facility], Smoking Cessation Medications and DC Order Prescriptions: Continued topiramate 200 mg tablet 200 mg PO BID 90 Days Qty: 180 1RF atorvastatin 20 mg tablet 20 mg PO QPM meclizine [Bonine] 25 mg tablet,chewable 25 mg PO DAILY PRN (Reason: dizziness) diclofenac sodium [Voltaren Arthritis Pain] 1 % gel 2 g topical QID PRN (Reason: Pain) Jardiance 10 mg tablet 10 mg PO DAILY famotidine 40 mg tablet 40 mg PO DAILY ondansetron 8 mg tablet,disintegrating 8 mg PO Q8H PRN (Reason: NAUSEA/VOMITING) diphenhydramine HCl [Benadryl] 25 mg capsule 25 mg PO TID PRN (Reason: ITCHING/RESTLESSNESS) lidocaine (PF) 40 mg/mL (4 %) solution 40 mg IM Q3MO losartan 25 mg tablet 50 mg PO DAILY fluticasone propionate 110 mcg/actuation HFA aerosol inhaler 1 puffs INH BID azelastine 137 mcg (0.1 %) aerosol,spray 1 sprays INTNAS BID fluticasone propion-salmeterol 250-50 mcg/dose blister with device 1 puffs INH BID cetirizine [Zyrtec] 10 mg Tablet 10 mg PO QAM levothyroxine 25 mcg Tablet 25 mcg PO QAM pantoprazole [Protonix] 40 mg Tablet,Delayed Release (Dr/Ec) 40 mg PO HS ranitidine HCl 150 mg Tablet 150 mg PO BID ergocalciferol (vitamin D2) [Vitamin D2] 50,000 unit Capsule 50,000 unit PO WK Rx Instructions: Thursday epinephrine [EpiPen] 0.3 mg/0.3 mL Auto-Injector 0.3 mg IM Q3H PRN (Reason: Anaphylaxis) albuterol sulfate [Ventolin HFA] 90 mcg/actuation Hfa Aerosol Inhaler 2 - 4 puff INHALATION Q6H PRN (Reason: Shortness Of Breath Or Wheezing) fluticasone propionate [Flonase Allergy Relief] 50 mcg/actuation [place],Suspension 2 spray INTRANASAL QAM Changed gabapentin 300 mg capsule 600 mg PO UD Qty: 1 0RF Rx Instructions: 900 mg a.m., 600 mg noon and 900 mg p.m. Discharge Orders: Discharge Order (Routine); Ordered 09/03/23 Ordered By: Jelani Telles/Other Patient Handouts: Managing Type 2 Diabetes Admission Data Admit Date/Time: 09/02/23 02:31 Attending Provider: Jelani Florence Admit Provider: Mehul Reyes Primary Care Provider: Eliazar Winston Other Providers: Mehul Reeys; Brett Ortega
--- NOTE | 2023-09-04 19:26 | Electrocardiogram Report ---
Test Reason : Blood Pressure : / mmHG Vent. Rate : 070 BPM Atrial Rate : 070 BPM P-R Int : 146 ms QRS Dur : 076 ms QT Int : 372 ms P-R-T Axes : 038 035 018 degrees QTc Int : 401 ms Normal sinus rhythm Normal ECG When compared with ECG of 07-AUG-2022 16:42, Non-specific change in ST segment in Inferior leads Confirmed by Bhavesh Hilliard ([id number]) on 09/04/2023 7:25:36 PM Referred By: Eliazar Winston Confirmed By:Bhavesh Hilliard
[2023-09-06] MEDS ORDERED: ERGOCALCIFEROL 1250 MCG (50,000 UNITS) CAP PO SCH (09:00)
== END 2023-09-03 14:42 | disposition home or self-care (01) | DRG 101 ==
LOC: ED 22:56 → EDINP 09-02 02:31 → SUATTDRO 09-02 02:31 → 2S 09-02 03:10

== ENCOUNTER 2024-08-16 11:01 | Inpatient (IN) ==
[2024-08-16 11:45] LABS: Basophils # (auto) 0.02 K/uL (0.00-0.20); Basophils % (auto) 0.4 %; Eosinophils # (auto) 0.05 K/uL (0.00-0.50); Hematocrit (blood only) 46.3 % (37.0-47.0); Hemoglobin 14.7 g/dl (12.0-16.0); Immature Granulocytes # (auto) 0.01 K/uL (0.01-0.20); Immature Granulocytes % (auto) 0.2 %; Lymphocytes # (auto) 1.68 K/uL (1.20-3.40); Lymphocytes % (auto) 33.9 %; Mean Corpuscular Hemoglobin 26.4 pg (25.0-34.0); Mean Corpuscular Hgb Conc 31.7 g/dL (32.0-36.0); Mean Corpuscular Volume 83.1 fL (80.0-100.0); Mean Platelet Volume 10.9 fL (9.4-12.4); Monocytes # (auto) 0.39 K/uL (0.11-0.59); Monocytes % (auto) 7.9 %; Neutrophils # (auto) 2.81 K/uL (1.40-6.50); Neutrophils % (auto) 56.6 %; Platelet Count 212 K/uL (130-400); RDW Coefficient of Variation 13.5 % (11.5-14.5); RDW Standard Deviation 41.1 fL (36.4-46.3); Red Blood Count 5.57 M/uL (4.20-5.40); White Blood Count 4.96 K/ul (4.8-10.8)
--- NOTE | 2024-08-16 11:54 | Emergency Department Note ---
Impression & Plan Seizure-like activity, Ambulatory dysfunction ED Provider Note HISTORY OF PRESENT ILLNESS: Patient is a 5-year-old female presenting with seizure-like activity. Patient provides her own history. Reports that she was at her neurology follow-up appointment today when she had a seizure in the office. Reports that she "took a while to come to and then felt like I could not move my body." She states that the neurology service recommended she be evaluated in the emergency department. Patient reports she is on gabapentin and Topamax for her seizures. Denies any missed doses. She states that "I cannot move my body." She denies any recent falls or head injuries. Denies any recent fevers. Denies any chest pain or shortness of breath. ROS: as above PHYSICAL EXAM: Constitutional: Patient appears in no acute distress. HENT: Head: Normocephalic and atraumatic. Eyes: EOMI, PERRL Mouth/Throat: Mucous membranes moist. Neck: Trachea midline. Neck supple. Cardiovascular: RRR, No murmurs, rubs or gallops. Intact distal pulses. Pulmonary/Chest: No respiratory distress. Breath sounds clear and equal bilaterally. No wheezes or rales. Abdominal: Abdomen soft, no tenderness, rebound or guarding. Musculoskeletal: No edema, tenderness or deformity noted. Skin: Warm and dry. No rash, erythema, pallor or cyanosis Psychiatric: Appropriate mood and affect for situation. Neurological: Alert and keenly responsive. CN II-XII grossly intact MDM: - Vitals signs showed hypertension - History obtained via patient. History as above. - Chronic conditions affecting care: Seizure disorder; hypothyroidism; migraine headaches - Differential diagnoses include, but are not limited to: breakthrough seizure; dysrhythmia; electrolyte abnormality; UTI; pneumonia; CVA; intracranial hemorrhage - Order placed for continuous cardiac monitoring. At this time, monitor showed rate of 64 bpm with normal sinus rhythm, per my interpretation. - External medical records reviewed. Neurology office visit note from today was reviewed. Patient has a history of seizures but they are typically not on epileptogenic episodes and the pens episodes occur 3 times a week or could be daily. Per their documentation, the patient was sitting upright in the chair with sunglasses on and not responding. She seemed stiff and had twitching hand movements. They referred her to the ER. - After patient had a viral swab performed by nursing staff, was called to patient's bedside due to concern for "seizure-like activity." Patient does not respond to verbal or tactile stimulus. However, when her eyes are open she does blink to threat and she swats at my hand when I attempt to touch her eye. Vital signs stable on the monitor -no appreciable tachycardia. - EKG image interpreted by myself showed normal sinus rhythm. Rate 60 bpm. QT 396. No acute ischemic changes. - Laboratory workup interpreted by myself showed normal WBC; stable electrolytes; normal lactate; normal troponin - Viral respiratory panel negative - Prolactin negative - CT head wo contrast negative for acute intracranial pathology. - Patient continued to have her episode of unresponsiveness and would not interact with providers. She was given 0.5 mg IV Ativan. On reassessment, she is alert and oriented and holds a conversation. Patient reports she is feeling better on reassessment. She is now moving all extremities spontaneously. Reports she ambulates with a walker at home. - Unclear if patient truly had a breakthrough seizure, as no one truly witness her seizure-like activity. She has normal laboratory workup in the ER, which suggests against her having a true seizure. She feels comfortable with plan for discharge home. Recommend close follow-up with her primary care provider and neurologist. - When attempting to get up with nursing staff to do an ambulatory trial prior to discharge, the patient almost fell to the ground and nursing staff caught her. She reports she feels very unsteady on her feet. Will admit to hospital service for ambulatory dysfunction. Discussion was had with family preservation caseworker about patient's case and need for admission - Hospitalist consulted for admission - [facility] ASSESSMENT AND PLAN: Diagnosis: Seizure-like activity; ambulatory dysfunction Plan: admit Past Med/Surg History Problem List (Updated 08/16/24 @ 15:09 by Nayeli Snyder MD) Ambulatory dysfunction (Acute) Seizure-like activity (Acute) Rib pain on right side Spine pain Multiple falls Classic migraine with aura Seizure-like activity Nonepileptic episode Seizure Hypokalemia (Acute) Confusion (Acute) Syncope (Acute) Myoclonic jerking Muscle spasm Idiopathic polyneuropathy History of seizure Numbness Arthralgia of multiple joints Lumbar radicular pain Ataxia Neck pain Hypothyroidism Vitamin D deficiency Fatigue Depression Common migraine without aura Vertigo (Chronic) Concussion (Acute) Cervical strain (Acute) Closed head injury (Acute) Facial contusion (Acute) Bilateral wrist pain (Acute) Seizure (Chronic) Medical History Chronic vertigo Surgical History No history of previous surgery Family History Mother No pertinent family history Social History Smoking Status: Never smoker Hx Alcohol Use: No Hx Substance Use: No Preferred Language: Amharic Test Lead Required: No Beliefs That Will Affect Care: None marital status: Current Living Situation: Spouse Feels Safe at Home: Yes Assistive Devices: Glasses Allergies Allergies Allergy/AdvReac Type Severity Reaction Status Date / Time Sulfa (Sulfonamide AdvReac Intermediate GI SYMPTOMS Verified 05/09/24 10:16 Antibiotics) various allergies Allergy Severe Anaphylaxis Uncoded 05/09/24 10:16 Home Meds Home Medications Medication Instructions Recorded Confirmed albuterol sulfate 90 mcg/actuation 2 - 4 puff inhalation Q6H PRN 08/14/18 08/16/24 aerosol inhaler (Ventolin HFA) Shortness Of Breath Or Wheezing cetirizine 10 mg tablet (Zyrtec) 10 mg PO QAM 08/14/18 08/16/24 epinephrine 0.3 mg/0.3 mL 0.3 mg IM Q3H PRN Anaphylaxis 08/14/18 08/16/24 injection, auto-injector (EpiPen) ergocalciferol (vitamin D2) 1,250 50,000 unit PO WK 08/14/18 08/16/24 mcg (50,000 unit) capsule (Vitamin D2) fluticasone propionate 50 2 spray intranasal QAM 08/14/18 08/16/24 mcg/actuation nasal spray,suspension (Flonase Allergy Relief) levothyroxine 25 mcg tablet 25 mcg PO QAM 08/14/18 08/16/24 pantoprazole 40 mg tablet,delayed 40 mg PO HS 08/14/18 08/16/24 release (Protonix) ranitidine HCl 150 mg tablet 150 mg PO BID 08/14/18 08/16/24 azelastine 137 mcg (0.1 %) nasal 1 sprays intranasal BID 12/22/19 08/16/24 spray fluticasone 250 mcg-salmeterol 50 1 puffs inhalation BID 12/22/19 08/16/24 mcg/dose blistr powdr for inhalation fluticasone propionate 110 1 puffs inhalation BID 12/22/19 08/16/24 mcg/actuation HFA aerosol inhaler atorvastatin 20 mg tablet 20 mg PO QPM dyslipidemia 07/15/21 08/16/24 meclizine 25 mg chewable tablet 25 mg PO DAILY PRN dizziness 02/06/22 08/16/24 (Bonine) diclofenac sodium 1 % topical gel 2 g topical QID PRN Pain 08/04/22 08/16/24 (Voltaren Arthritis Pain) diphenhydramine HCl 25 mg capsule 25 mg PO TID PRN 02/04/23 08/16/24 (Benadryl) ITCHING/RESTLESSNESS empagliflozin 10 mg tablet 10 mg PO DAILY 02/04/23 08/16/24 (Jardiance) famotidine 40 mg tablet 40 mg PO DAILY 02/04/23 08/16/24 lidocaine (PF) 40 mg/mL (4 %) 40 mg IM Q3MO 02/04/23 08/16/24 injection solution ondansetron 8 mg disintegrating 8 mg PO Q8H PRN NAUSEA/VOMITING 02/04/23 08/16/24 tablet losartan 25 mg tablet 50 mg PO DAILY 05/12/23 08/16/24 ketoconazole 2 % shampoo 1 applic topical Q14D 08/16/24 08/16/24 latanoprost 0.005 % eye drops 1 drp ophthalmic (eye) DAILY 08/16/24 08/16/24 Previous Rx's Medication Instructions Recorded galcanezumab-gnlm 120 mg/mL 120 mg subcut ONCE 30 days #30 mL 02/23/24 subcutaneous pen injector (Emgality Pen) topiramate 200 mg tablet 200 mg PO BID 90 days #180 tabs 02/23/24 gabapentin 800 mg tablet 800 mg PO TID #270 tabs 06/21/24 Results & Data (ED) Vital Signs Vital Signs - 24 hr 08/16/24 11:06 08/16/24 11:14 08/16/24 11:19 Temperature 36.8 C Temperature Source Oral Pulse Rate 65 62 58 L Pulse Rate [Left Apical] Respiratory Rate 14 14 13 Respiratory Effort / Characteristics Non-Labored Respiratory Depth Normal Respiratory Pattern Regular Blood Pressure 194/96 H 194/96 H 153/89 H Blood Pressure [Right Arm] Blood Pressure Mean 117 128 104 Blood Pressure Mean [Right Arm] Blood Pressure Position [Right Arm] Pulse Oximetry 100 98 100 Oxygen Delivery Method Room Air Sepsis Recent Fever Within 48 Hours No Sepsis New/Unexplained Change in Mental Status No Sepsis Action Taken by Nursing No Action Required 08/16/24 11:29 08/16/24 11:30 08/16/24 11:57 Temperature Temperature Source Pulse Rate 64 68 Pulse Rate [Left Apical] Respiratory Rate 14 Respiratory Effort / Characteristics Respiratory Depth Respiratory Pattern Blood Pressure 156/81 H Blood Pressure [Right Arm] Blood Pressure Mean 112 Blood Pressure Mean [Right Arm] Blood Pressure Position [Right Arm] Pulse Oximetry 97 99 Oxygen Delivery Method Room Air Sepsis Recent Fever Within 48 Hours Sepsis New/Unexplained Change in Mental Status Sepsis Action Taken by Nursing 08/16/24 12:01 08/16/24 12:36 08/16/24 15:13 Temperature Temperature Source Pulse Rate 62 64 Pulse Rate [Left Apical] 64 Respiratory Rate 16 12 16 Respiratory Effort / Characteristics Non-Labored Spontaneous Respiratory Depth Normal Respiratory Pattern Regular Blood Pressure 150/89 H 161/80 H Blood Pressure [Right Arm] 141/83 H Blood Pressure Mean 110 105 Blood Pressure Mean [Right Arm] 102 Blood Pressure Position [Right Arm] Semi-fowlers Pulse Oximetry 99 99 97 Oxygen Delivery Method Room Air Sepsis Recent Fever Within 48 Hours Sepsis New/Unexplained Change in Mental Status Sepsis Action Taken by Nursing Laboratory Data 08/16/24 11:17 08/16/24 11:17 Lab Results 08/16/24 08/16/24 08/16/24 Range/Units 11:17 11:41 11:42 WBC 4.96 (4.8-10.8) K/ul RBC 5.57 H (4.20-5.40) M/uL Hgb 14.7 (12.0-16.0) g/dl Hct 46.3 (37.0-47.0) % MCV 83.1 (80.0-100.0) fL MCH 26.4 (25.0-34.0) pg MCHC 31.7 L (32.0-36.0) g/dL RDW Std Deviation 41.1 (36.4-46.3) fL RDW Coeff of Faustino 13.5 (11.5-14.5) % Plt Count 212 (130-400) K/uL MPV 10.9 (9.4-12.4) fL Immature Gran % (Auto) 0.2 % Neut % (Auto) 56.6 % Lymph % (Auto) 33.9 % Norman % (Auto) 7.9 % Eos % (Auto) 1.0 % Baso % (Auto) 0.4 % Neut # (Auto) 2.81 (1.40-6.50) K/uL Lymph # (Auto) 1.68 (1.20-3.40) K/uL Norman # (Auto) 0.39 (0.11-0.59) K/uL Eos # (Auto) 0.05 (0.00-0.50) K/uL Baso # (Auto) 0.02 (0.00-0.20) K/uL Immature Gran # (Auto) 0.01 (0.01-0.20) K/uL Sodium 142 (136-145) mmol/L Potassium 4.3 (3.5-5.1) mmol/L Chloride 108 H (98-107) mmol/L Carbon Dioxide 29 (21-32) mmol/L Anion Gap 5 (3-11) BUN 17 (6-23) mg/dl Creatinine 0.90 (0.6-1.2) mg/dl Est Cr Clr Drug Dosing 75.9 ml/min eGFR 73.19 BUN/Creatinine Ratio 18.9 (10-20) Glucose 108 H (70-99(Fasting)) mg/dl POC Glucose (70-99) mg/dl Lactate 1.1 (0.4-2.0) mmol/L Calcium 9.5 (8.6-10.3) mg/dl Magnesium 2.2 (1.7-2.4) mg/dl Total Bilirubin 0.6 (0.2-1.0) mg/dl AST 19 (13-39) U/L ALT 17 (7-52) U/L Alkaline Phosphatase 58 (34-104) U/L Troponin I High Sens 2.9 (0-14) pg/ml Total Protein 7.2 (6.0-8.3) gm/dl Albumin 4.5 (3.4-5.0) gm/dl Globulin 2.7 (2.5-4.0) gm/dl Albumin/Globulin Ratio 1.7 (0.9-2) Prolactin 4.84 ng/ml Adenovirus (PCR) Not Detected (NotDetected) B. pertussis DNA (PCR) Not Detected (NotDetected) B.parapertussis DNA PCR Not Detected (NotDetected) C. pneumoniae DNA (PCR) Not Detected (NotDetected) Coronavirus OC43 (PCR) Not Detected (NotDetected) Coronavirus HKU1 (PCR) Not Detected (NotDetected) Coronavirus 229E (PCR) Not Detected (NotDetected) SARS-CoV-2 (PCR) Not Detected (NotDetected) Coronavirus NL63 (PCR) Not Detected (NotDetected) Human Metapneumovir PCR Not Detected (NotDetected) Influenza Type A (PCR) Not Detected (NotDetected) Influenza Type B (PCR) Not Detected (NotDetected) M. pneumoniae (PCR) Not Detected (NotDetected) Parainfluenza 1 (PCR) Not Detected (NotDetected) Parainfluenza 2 (PCR) Not Detected (NotDetected) Parainfluenza 3 (PCR) Not Detected (NotDetected) Parainfluenza 4 (PCR) Not Detected (NotDetected) RSV (PCR) Not Detected (NotDetected) Entero/Rhino (PCR) Not Detected (NotDetected) 08/16/24 Range/Units 12:10 WBC (4.8-10.8) K/ul RBC (4.20-5.40) M/uL Hgb (12.0-16.0) g/dl Hct (37.0-47.0) % MCV (80.0-100.0) fL MCH (25.0-34.0) pg MCHC (32.0-36.0) g/dL RDW Std Deviation (36.4-46.3) fL RDW Coeff of Faustino (11.5-14.5) % Plt Count (130-400) K/uL MPV (9.4-12.4) fL Immature Gran % (Auto) % Neut % (Auto) % Lymph % (Auto) % Norman % (Auto) % Eos % (Auto) % Baso % (Auto) % Neut # (Auto) (1.40-6.50) K/uL Lymph # (Auto) (1.20-3.40) K/uL Norman # (Auto) (0.11-0.59) K/uL Eos # (Auto) (0.00-0.50) K/uL Baso # (Auto) (0.00-0.20) K/uL Immature Gran # (Auto) (0.01-0.20) K/uL Sodium (136-145) mmol/L Potassium (3.5-5.1) mmol/L Chloride (98-107) mmol/L Carbon Dioxide (21-32) mmol/L Anion Gap (3-11) BUN (6-23) mg/dl Creatinine (0.6-1.2) mg/dl Est Cr Clr Drug Dosing ml/min eGFR BUN/Creatinine Ratio (10-20) Glucose (70-99(Fasting)) mg/dl POC Glucose 80 (70-99) mg/dl Lactate (0.4-2.0) mmol/L Calcium (8.6-10.3) mg/dl Magnesium (1.7-2.4) mg/dl Total Bilirubin (0.2-1.0) mg/dl AST (13-39) U/L ALT (7-52) U/L Alkaline Phosphatase (34-104) U/L Troponin I High Sens (0-14) pg/ml Total Protein (6.0-8.3) gm/dl Albumin (3.4-5.0) gm/dl Globulin (2.5-4.0) gm/dl Albumin/Globulin Ratio (0.9-2) Prolactin ng/ml Adenovirus (PCR) (NotDetected) B. pertussis DNA (PCR) (NotDetected) B.parapertussis DNA PCR (NotDetected) C. pneumoniae DNA (PCR) (NotDetected) Coronavirus OC43 (PCR) (NotDetected) Coronavirus HKU1 (PCR) (NotDetected) Coronavirus 229E (PCR) (NotDetected) SARS-CoV-2 (PCR) (NotDetected) Coronavirus NL63 (PCR) (NotDetected) Human Metapneumovir PCR (NotDetected) Influenza Type A (PCR) (NotDetected) Influenza Type B (PCR) (NotDetected) M. pneumoniae (PCR) (NotDetected) Parainfluenza 1 (PCR) (NotDetected) Parainfluenza 2 (PCR) (NotDetected) Parainfluenza 3 (PCR) (NotDetected) Parainfluenza 4 (PCR) (NotDetected) RSV (PCR) (NotDetected) Entero/Rhino (PCR) (NotDetected) Administered Medications Discontinued Medications Lorazepam (Lorazepam 2 Mg/1 Ml Vial) 0.5 mg IV NOW STA Stop: 08/16/24 12:48 Last Admin: 08/16/24 13:02 Dose: 0.5 mg Documented By: MEL Imaging Data Radiologist's Impression: Head CT 08/16/24 12:47 CT head/brain wo con CLINICAL HISTORY: seizure like activity. TECHNIQUE: Multiple axial CT images of the head were obtained without contrast. A dose lowering technique was utilized adhering to the principles of ALARA. CT DOSE: 547.75 mGy.cm COMPARISON: 09/02/2023 FINDINGS: No intracranial hemorrhage seen. No mass effect, midline shift, or hydrocephalus. No skull fracture seen. Visualized paranasal sinuses and mastoid air cells are clear. IMPRESSION: No acute findings. ACT 112: Negative or not required by law. The above report was generated using voice recognition software. It may contain grammatical, syntax or spelling errors. Electronically signed by: Craig Bass M.D. 08/16/2024 2:20 PM Discharge Plan Visit Data Chief Complaint: Seizure Stated Complaint: pseudo ED Provider: Nayeli Snyder Discharge Problem: Seizure-like activity, Ambulatory dysfunction Discharge Instructions Krames/Other Patient Handouts: ED [facility] Seizure Activity Restrictions/Additional Instructions: Your laboratory workup in the emergency department was negative for any acute abnormality. Your viral respiratory panel was negative. The CT scan of your head did not show any acute intracranial abnormality as a source for your seizure. Recommend you continue with your antiseizure medication. You should follow-up closely with your primary care provider and your neurologist. Forms Stand Alone Forms: My [facility] Prescriptions Prescriptions: No Action gabapentin 800 mg tablet 800 mg PO TID Qty: 270 3RF atorvastatin 20 mg tablet 20 mg PO QPM meclizine [Bonine] 25 mg tablet,chewable 25 mg PO DAILY PRN (Reason: dizziness) diclofenac sodium [Voltaren Arthritis Pain] 1 % gel 2 g topical QID PRN (Reason: Pain) Jardiance 10 mg tablet 10 mg PO DAILY famotidine 40 mg tablet 40 mg PO DAILY ondansetron 8 mg tablet,disintegrating 8 mg PO Q8H PRN (Reason: NAUSEA/VOMITING) diphenhydramine HCl [Benadryl] 25 mg capsule 25 mg PO TID PRN (Reason: ITCHING/RESTLESSNESS) lidocaine (PF) 40 mg/mL (4 %) solution 40 mg IM Q3MO losartan 25 mg tablet 50 mg PO DAILY fluticasone propionate 110 mcg/actuation HFA aerosol inhaler 1 puffs INH BID azelastine 137 mcg (0.1 %) aerosol,spray 1 sprays INTNAS BID fluticasone propion-salmeterol 250-50 mcg/dose blister with device 1 puffs INH BID topiramate 200 mg tablet 200 mg PO BID 90 Days Qty: 180 3RF Emgality Pen 120 mg/mL pen injector 120 mg subcut ONCE 30 Days Qty: 30 5RF Rx Instructions: 240 mg subcu or two injections loading dose first month, then 120 mg per month. ketoconazole 2 % shampoo 1 applic topical Q14D latanoprost 0.005 % drops 1 drp ophthalmic (eye) DAILY cetirizine [Zyrtec] 10 mg Tablet 10 mg PO QAM levothyroxine 25 mcg Tablet 25 mcg PO QAM pantoprazole [Protonix] 40 mg Tablet,Delayed Release (Dr/Ec) 40 mg PO HS ranitidine HCl 150 mg Tablet 150 mg PO BID ergocalciferol (vitamin D2) [Vitamin D2] 50,000 unit Capsule 50,000 unit PO WK Rx Instructions: Thursday epinephrine [EpiPen] 0.3 mg/0.3 mL Auto-Injector 0.3 mg IM Q3H PRN (Reason: Anaphylaxis) albuterol sulfate [Ventolin HFA] 90 mcg/actuation Hfa Aerosol Inhaler 2 - 4 puff INHALATION Q6H PRN (Reason: Shortness Of Breath Or Wheezing) fluticasone propionate [Flonase Allergy Relief] 50 mcg/actuation [place],Suspension 2 spray INTRANASAL QAM Referrals Referrals: Eliazar Winston MD [Primary Care Provider] -
[2024-08-16 12:06] LABS: Albumin Globulin Ratio 1.7 (0.9-2); Albumin Level 4.5 gm/dl (3.4-5.0); BUN Creatinine Ratio 18.9 (10-20); Bilirubin,Total 0.6 mg/dl (0.2-1.0); Calcium 9.5 mg/dl (8.6-10.3); Creatinine Clr Calc Pharmacy 75.9 ml/min; Globulin 2.7 gm/dl (2.5-4.0); Magnesium 2.2 mg/dl (1.7-2.4); Potassium 4.3 mmol/L (3.5-5.1); Total Protein 7.2 gm/dl (6.0-8.3)
[2024-08-16 12:12] LABS: Troponin I High Sensitivity 2.9 pg/ml (0-14)
[2024-08-16] MEDS: LORazepam 2 MG/1 ML VIAL IV STA (13:02)
[2024-08-16 13:07] LABS: Adenovirus PCR Not Detected (NotDetected); Bordetella parapertussis PCR Not Detected (NotDetected); Bordetella pertussis PCR Not Detected (NotDetected); Chlamydia pneumoniae PCR Not Detected (NotDetected); Coronavirus 229E PCR Not Detected (NotDetected); Coronavirus CoV-2 (COVID19)PCR Not Detected (NotDetected); Coronavirus HKU1 PCR Not Detected (NotDetected); Coronavirus NL63 PCR Not Detected (NotDetected); Coronavirus OC43PCR Not Detected (NotDetected); Human Metapneumovirus PCR Not Detected (NotDetected); Influenza A PCR Not Detected (NotDetected); Influenza B PCR Not Detected (NotDetected); Mycoplasma pneumoniae PCR Not Detected (NotDetected); Parainfluenza Virus 1 PCR Not Detected (NotDetected); Parainfluenza Virus 2 PCR Not Detected (NotDetected); Parainfluenza Virus 3 PCR Not Detected (NotDetected); Parainfluenza Virus 4 PCR Not Detected (NotDetected); Respiratory Syncytial VirusPCR Not Detected (NotDetected); Rhinovirus/Enterovirus PCR Not Detected (NotDetected)
--- NOTE | 2024-08-16 14:22 | CT Scan Report ---
CT head/brain wo con CLINICAL HISTORY: seizure like activity. TECHNIQUE: Multiple axial CT images of the head were obtained without contrast. A dose lowering tech nique was utilized adhering to the principles of ALARA. CT DOSE: 547.75 mGy.cm COMPARISON: 09/02/2023 FINDINGS: No intracranial hemorrhage seen. No mass effect, midline shift, or hydrocephalus. No skull fracture seen. Visualized paranasal sinuses and mastoid air cells are clear. IMPRESSION: No acute findings. ACT 112: Negative or not required by law. The above report was generated using voice recognition software. It may contain grammatical, syntax o r spelling errors. Electronically signed by: Craig Bass M.D. 08/16/2024 2:20 PM
--- NOTE | 2024-08-16 14:57 | Electrocardiogram Report ---
Test Reason : Blood Pressure : */* mmHG Vent. Rate : 60 BPM Atrial Rate : 60 BPM P-R Int : 144 ms QRS Dur : 74 ms QT Int : 396 ms P-R-T Axes : 46 37 26 degrees QTcB Int : 396 ms Normal sinus rhythm Low voltage QRS Borderline ECG When compared with ECG of 01-Sep-2023 23:16, No significant change was found Confirmed by Raúl Durand ([id number]) on 08/16/2024 2:57:11 PM Referred By: Confirmed By: Raúl Durand
--- NOTE | 2024-08-16 16:49 | History & Physical Report ---
Date of Service August 16, 2024 Assessment & Plan (1) Seizure-like activity: (2) Multiple falls: (3) Ambulatory dysfunction: (4) DM type 2 (diabetes mellitus, type 2): (5) Hypothyroidism: (6) Common migraine without aura: (7) Mild intermittent asthma: (8) Arthralgia of multiple joints: (9) GERD (gastroesophageal reflux disease): (10) Vitamin D deficiency: (11) Allergic rhinitis: Plan Seizure like activity Work up in the ED reassuring against seizure-like activity with negative head CT, EKG with NSR, and CBC, CMP, troponin, and viral panel all unremarkable Patient not responding during episodes but blinking and swatting hand away during assessment and complete recall of "episodes" which is not consistent with true seizure Order drug screen and alcohol level Check mag and phos Consult neurology and psych Continue home topiramate and gabapentin Multiple falls, ambulatory dysfunction Patient failed ambulatory trial prior to dc from ED Ambulates with walker occasionally PT and OT consult Diabetes mellitus type 2 Sliding scale insulin while in hospital Holding home Jardiance Continue home atorvastatin Hypertension Continue home losartan Hypothyroidism Continue home levothyroxine Migraines Holding home Emgality Mild persistent asthma Continue home Advair and PRN albuterol Arthralgia Continue home Voltaren gel GERD Continue home pantoprazole and famotidine DVT Prophylaxis: subQ lovenox Code Status: FULL CODE PCP: Dr Eliazar Winston MD Disposition: Admit to med/surg Patient seen in collaboration with Dr. Winston. Please see addendum. I spent a total of 50 minutes coordinating, documenting and providing care for this patient excluding time spent in the performance of separately billed services or time spent by another provider/QHP. History of Present Illness Chief Complaint: "I had one of my episodes" Primary Care Provider: Eliazar Winston MD 59 year old female with PMH significant for seizure disorder, type 2 diabetes mellitus, HTN, hypothyroidism, migraines, chronic pain, mild persistent asthma, allergic rhinitis, GERD, OA of bilateral knees, vitamin D deficiency, and ambulatory dysfunction who presented to the ED today for a seizure-like episode. Patient states that she was at a neurology appointment earlier today where she had one of her "episodes" where she could not talk or move. She was told to seek evaluation in the ED. Upon arrival to the ED, patient underwent work up including head CT with no acute abnormalities, EKG revealing NSR, stable labs including CBC, CMP, troponin, negative viral panel, and her vitals have been stable. During evaluation in the ED, she had an episode where she was unresponsive and would not interact with providers. She was given 0.5mg IV ativan and then became alert and oriented. She was going to be discharged home and while attempting an ambulatory trial, the patient almost fell to the ground. Therefore, she is being admitted for ambulatory dysfunction. When I saw the patient, she was alert and oriented and conversed well. She denies any pain or discomfort, headache, chest pain, SOB, abdominal pain, N/V/D, urinary or bowel problems. She endorses myalgia and joint pain all over her body, which is baseline for her. She reports that she has had multiple falls, but cannot recall when the last one happened. She states that she has been working on getting her strength back over the last 6 months by swimming. She has done physical therapy in the past. She uses a walker to ambulate on days that she is feeling particularly weak or swollen. She lives at home with her and daughter. She denies tobacco or alcohol use. Allergies Allergy/AdvReac Type Severity Reaction Status Date / Time Sulfa (Sulfonamide AdvReac Intermediate GI SYMPTOMS Verified 05/09/24 10:16 Antibiotics) various allergies Allergy Severe Anaphylaxis Uncoded 05/09/24 10:16 Home Medications Medication Instructions Recorded Confirmed Type albuterol sulfate 90 mcg/actuation 2 - 4 puff inhalation Q6H PRN 08/14/18 08/16/24 History aerosol inhaler (Ventolin HFA) Shortness Of Breath Or Wheezing cetirizine 10 mg tablet (Zyrtec) 10 mg PO QAM 08/14/18 08/16/24 History epinephrine 0.3 mg/0.3 mL 0.3 mg IM Q3H PRN Anaphylaxis 08/14/18 08/16/24 History injection, auto-injector (EpiPen) ergocalciferol (vitamin D2) 1,250 50,000 unit PO WK 08/14/18 08/16/24 History mcg (50,000 unit) capsule (Vitamin D2) fluticasone propionate 50 2 spray intranasal QAM 08/14/18 08/16/24 History mcg/actuation nasal spray,suspension (Flonase Allergy Relief) levothyroxine 25 mcg tablet 25 mcg PO QAM 08/14/18 08/16/24 History pantoprazole 40 mg tablet,delayed 40 mg PO HS 08/14/18 08/16/24 History release (Protonix) ranitidine HCl 150 mg tablet 150 mg PO BID 08/14/18 08/16/24 History azelastine 137 mcg (0.1 %) nasal 1 sprays intranasal BID 12/22/19 08/16/24 History spray fluticasone 250 mcg-salmeterol 50 1 puffs inhalation BID 12/22/19 08/16/24 History mcg/dose blistr powdr for inhalation fluticasone propionate 110 1 puffs inhalation BID 12/22/19 08/16/24 History mcg/actuation HFA aerosol inhaler atorvastatin 20 mg tablet 20 mg PO QPM dyslipidemia 07/15/21 08/16/24 History meclizine 25 mg chewable tablet 25 mg PO DAILY PRN dizziness 02/06/22 08/16/24 History (Bonine) diclofenac sodium 1 % topical gel 2 g topical QID PRN Pain 08/04/22 08/16/24 History (Voltaren Arthritis Pain) diphenhydramine HCl 25 mg capsule 25 mg PO TID PRN 02/04/23 08/16/24 History (Benadryl) ITCHING/RESTLESSNESS empagliflozin 10 mg tablet 10 mg PO DAILY 02/04/23 08/16/24 History (Jardiance) famotidine 40 mg tablet 40 mg PO DAILY 02/04/23 08/16/24 History lidocaine (PF) 40 mg/mL (4 %) 40 mg IM Q3MO 02/04/23 08/16/24 History injection solution ondansetron 8 mg disintegrating 8 mg PO Q8H PRN NAUSEA/VOMITING 02/04/23 08/16/24 History tablet losartan 25 mg tablet 50 mg PO DAILY 05/12/23 08/16/24 History galcanezumab-gnlm 120 mg/mL 120 mg subcut ONCE 30 days #30 mL 02/23/24 08/16/24 Rx subcutaneous pen injector (Emgality Pen) topiramate 200 mg tablet 200 mg PO BID 90 days #180 tabs 02/23/24 08/16/24 Rx gabapentin 800 mg tablet 800 mg PO TID #270 tabs 06/21/24 08/16/24 Rx ketoconazole 2 % shampoo 1 applic topical Q14D 08/16/24 08/16/24 History latanoprost 0.005 % eye drops 1 drp ophthalmic (eye) DAILY 08/16/24 08/16/24 History Past Med/Surg History Problem List (Updated 08/16/24 @ 16:40 by STEPHANIE Barajas) Allergic rhinitis GERD (gastroesophageal reflux disease) Mild intermittent asthma DM type 2 (diabetes mellitus, type 2) Ambulatory dysfunction (Acute) Seizure-like activity (Acute) Rib pain on right side Spine pain Multiple falls Classic migraine with aura Seizure-like activity Nonepileptic episode Seizure Hypokalemia (Acute) Confusion (Acute) Syncope (Acute) Myoclonic jerking Muscle spasm Idiopathic polyneuropathy History of seizure Numbness Arthralgia of multiple joints Lumbar radicular pain Ataxia Neck pain Hypothyroidism Vitamin D deficiency Fatigue Depression Common migraine without aura Vertigo (Chronic) Concussion (Acute) Cervical strain (Acute) Closed head injury (Acute) Facial contusion (Acute) Bilateral wrist pain (Acute) Seizure (Chronic) Medical History Chronic vertigo Surgical History No history of previous surgery Family History Mother No pertinent family history Social History Smoking Status: Never smoker Hx Alcohol Use: No Hx Substance Use: No Preferred Language: Macedonian Supervisor Cytology Required: No Beliefs That Will Affect Care: None marital status: Current Living Situation: Spouse Feels Safe at Home: Yes Assistive Devices: Glasses Review of Systems Review of Systems: All systems reviewed & are unremarkable except as noted in HPI & below Physical Exam Physical Exam: VITALS: Reviewed and VSS. GEN: Healthy appearing, well-developed, obese female, NAD. PSYCH: Good Judgment. AOx3. Normal memory, mood, and affect. HEENT: Head NC/AT, PERRL, EOMI, Nares without rhinorrhea, Nasal and oral mucosa pink NECK: Supple, with no masses. CV: RRR, no m/r/g. LUNGS: CTAB, no w/r/c. ABD: Soft, NT/ND, NBS, no masses or organomegaly. SKIN: Warm, well perfused. No skin rashes or abnormal lesions. MSK: No deformities, EXT: No clubbing, cyanosis, or edema. NEURO: Ambulating with walker. railroad brakeman grossly intact. No focal deficits. Results & Data Results & Data Vital Signs (Past 12 Hours) Vital Signs Temp Pulse Pulse Resp BP BP Pulse Ox 08/16/24 15:13 64 16 141/83 H 97 08/16/24 12:36 64 12 161/80 H 99 08/16/24 12:01 62 16 150/89 H 99 08/16/24 11:57 99 08/16/24 11:30 68 14 156/81 H 97 08/16/24 11:29 64 08/16/24 11:19 58 L 13 153/89 H 100 08/16/24 11:14 36.8 C 62 14 194/96 H 98 08/16/24 11:06 65 14 194/96 H 100 O2 Del Method 08/16/24 15:13 Room Air 08/16/24 12:36 08/16/24 12:01 08/16/24 11:57 Room Air 08/16/24 11:30 08/16/24 11:29 08/16/24 11:19 08/16/24 11:14 Room Air 08/16/24 11:06 Laboratory Results Short CBC 08/16/24 Range/Units 11:17 WBC 4.96 (4.8-10.8) K/ul Hgb 14.7 (12.0-16.0) g/dl Hct 46.3 (37.0-47.0) % Plt Count 212 (130-400) K/uL BMP 08/16/24 11:17 Sodium 142 Potassium 4.3 Chloride 108 H Carbon Dioxide 29 BUN 17 Creatinine 0.90 Glucose 108 H Calcium 9.5 Liver Function 08/16/24 Range/Units 11:17 Total Bilirubin 0.6 (0.2-1.0) mg/dl AST 19 (13-39) U/L ALT 17 (7-52) U/L Alkaline Phosphatase 58 (34-104) U/L Albumin 4.5 (3.4-5.0) gm/dl I have independently reviewed and interpreted patient's admitting labs including CBC, CMP, and troponin. Diagnostic Findings Head CT 08/16/24 12:47 CT head/brain wo con CLINICAL HISTORY: seizure like activity. TECHNIQUE: Multiple axial CT images of the head were obtained without contrast. A dose lowering technique was utilized adhering to the principles of ALARA. CT DOSE: 547.75 mGy.cm COMPARISON: 09/02/2023 FINDINGS: No intracranial hemorrhage seen. No mass effect, midline shift, or hydrocephalus. No skull fracture seen. Visualized paranasal sinuses and mastoid air cells are clear. IMPRESSION: No acute findings. ACT 112: Negative or not required by law. The above report was generated using voice recognition software. It may contain grammatical, syntax or spelling errors. Electronically signed by: Craig Bass M.D. 08/16/2024 2:20 PM ECG Additional Comments: I have independently reviewed and interpreted patient's admitting EKG which rev ealed NSR with rate of [address] wave changes. Code Status & VTE Plan Code Status Full Code VTE Prophylaxis Plan VTE Prophylaxis will be ordered: Yes Supervising Physician Co-Signing Physician Notes Patient seen and examined at bedside. Patient has sunglasses on, slow to respond. States she "feels another episode coming on." When asked to describe the episode, she states that she freezes up and cannot move anything in her body. Of note, with ED provider, while having an episode, she reacted strongly to having reflexes checked, batting away the provider and yelling out. Responded well to ativan, coming out of spell. On exam, patient is neurologically intact, denies incontinence or tongue biting, appears slightly slow to respond, otherwise unremarkable. Unclear etiology of symptoms. Symptoms are not consistent with seizure like pathology, given her responsiveness during the episodes to unpleasant stimulation, no tongue biting, no loss of continence. Prolactin is nonspecific. Will do metabolic workup to rule out causes such as drugs and alcohol. Nonepileptiform seizure-like activity could be multifactorial, in setting of known chronic pain, psychiatric etiologies such as catatonia and conversion pathologies, less likely infectious or autoimmune in nature. Will consult neurology and psychiatry, PT/OT (patient unable to ambulate, reason for admission). I have seen and discussed the case with the collaborating advanced practitioner. I agree with the above H&P. I have reviewed and confirmed the patients medical history, the findings on physical examination, and the patients diagnosis and treatment plan with Mandy BROWN and agree with the information documented. I spent a total of 20 minutes coordinating, documenting, and providing care for this patient excluding time spent in the performance of separately billed services. All of the aforementioned completed outside of collaborating with the assigned advanced practitioner for a full treatment plan. I have reviewed the advanced practitioner's documentation, and I agree with, and take responsibility for the plan of care
[2024-08-16] MEDS ORDERED: POLYETHYLENE (MIRALAX) 17 GM PACK PO PRN (18:48)
[2024-08-16] MEDS ORDERED: DICLOFENAC SOD 1% GEL 100 GM TUBE EXT PRN (18:48)
[2024-08-16] MEDS ORDERED: ACETAMINOPHEN 325 MG TAB PO PRN (18:48)
[2024-08-16] MEDS ORDERED: DEXTROSE 50% 50 ML SYRINGE IV PRN (18:48)
[2024-08-16] MEDS ORDERED: GLUCAGON FOR INJ 1 MG VIAL SQ PRN (18:48)
[2024-08-16] MEDS ORDERED: GLUCOSE 40% GEL 15 GM TUBE PO PRN (18:48)
[2024-08-16] MEDS ORDERED: GLUCOSE 10 TAB/TUBE PO PRN (18:48)
[2024-08-16] MEDS ORDERED: CARBOHYDRATES FOR HYPOGLYCEMIA PO PRN (18:48)
[2024-08-16] MEDS ORDERED: ONDANSETRON 8MG OD TAB PO PRN (18:48)
[2024-08-16 18:50] LABS: Magnesium 2.1 mg/dl (1.7-2.4)
[2024-08-16 18:56] LABS: Phosphorus 3.3 mg/dl (2.5-4.9)
[2024-08-16] MEDS: ENOXAPARIN INJ 40 MG/0.4 ML SYR SQ SCH (19:44)
[2024-08-16 21:52] LABS: Amphetamines+Metham, Urine Neg (Neg); Barbiturates, Urine Neg (Neg); Benzodiazepine, Urine Neg (Neg); Cocaine, Urine Neg (Neg); Fentanyl, Urine Neg (Neg); MDMA (Ecstacy), Urine Neg (Neg); Marijuana, Urine Neg (Neg); Methadone, Urine Neg (Neg); Opiate, Urine Neg (Neg); Phencyclidine, Urine Neg (Neg)
[2024-08-16] MEDS: INSULIN ASPART PER UNIT CHARGE SC SCH (22:13)
[2024-08-16] MEDS: TOPIRAMATE 100 MG TAB PO SCH (22:39)
[2024-08-16] MEDS: PANTOprazole 40 MG TAB PO SCH (22:39)
[2024-08-16] MEDS: GABAPENTIN 800 MG TAB PO SCH (22:40)
[2024-08-16] MEDS: ATORVASTATIN 20 MG TAB PO SCH (22:40)
[2024-08-17] MEDS: LEVOTHYROXINE SODIUM 25 MCG TABLET PO SCH (06:12)
[2024-08-17 08:28] LABS: Hematocrit (blood only) 45.7 % (37.0-47.0); Hemoglobin 14.3 g/dl (12.0-16.0); Mean Corpuscular Hgb Conc 31.3 g/dL (32.0-36.0); Mean Corpuscular Volume 82.9 fL (80.0-100.0); Mean Platelet Volume 11.4 fL (9.4-12.4); Platelet Count 214 K/uL (130-400); RDW Coefficient of Variation 13.7 % (11.5-14.5); RDW Standard Deviation 41.6 fL (36.4-46.3); Red Blood Count 5.51 M/uL (4.20-5.40); White Blood Count 4.33 K/ul (4.8-10.8)
[2024-08-17 08:40] LABS: Albumin Globulin Ratio 1.6 (0.9-2); BUN Creatinine Ratio 18.5 (10-20); Bilirubin,Total 0.9 mg/dl (0.2-1.0); Calcium 8.9 mg/dl (8.6-10.3); Creatinine Clr Calc Pharmacy 71.9 ml/min; Globulin 2.5 gm/dl (2.5-4.0); Potassium 3.5 mmol/L (3.5-5.1); Total Protein 6.5 gm/dl (6.0-8.3)
[2024-08-17] MEDS: FLUTICASONE/VILANTEROL 200/25MCG 14 PUFFS/INHALER INH SCH (09:15)
[2024-08-17] MEDS: LOSARTAN POTASSIUM 50 MG TAB PO SCH (09:15)
[2024-08-17] MEDS: FAMOTIDINE 40 MG TABLET PO SCH (09:15)
--- NOTE | 2024-08-17 09:16 | Neurology Consultation ---
Date of Consultation August 17, 2024 Assessment & Plan (1) History of psychogenic nonepileptic seizure: (2) Seizure-like activity: (3) Classic migraine with aura: (4) Multiple falls: (5) Idiopathic polyneuropathy: (6) Spine pain: Plan This is a complicated patient with a number of neurologic symptoms and issues. Patient has a history of psychogenic nonepileptic seizures. There is a remote history of possible real seizure activity but I am not sure seizures have ever been proven in this patient. Her spells are variable, inconsistent, and she has awareness (many times) during generalized events. The patient has "drop" attacks without warning. It would be very unusual for a otherwise normal functioning adult to have atonic seizures. The spells could be more likely vasovagal or orthostatic type syncope, but these diagnoses have not been proven either. Patient has migraine headaches of a mixed nature improved with monthly Emgality. Patient has chronic spine and limb pain and has had a number of evaluations for these problems over the years. She has known sensorimotor polyneuropathy and this could give her a sensory ataxia/balance problem. The patient has snoring and a history of sleep apnea and is not being treated. The patient has considerable anxiety depression and has had psychiatric issues over the years. I am not certain she is followed by psychiatry. Recommendations: 1. MRI of the brain with and without contrast (and compare to previous study). 2. EEG routine today 3. Obtain topiramate level, Lyme antibody titers, ESR, and CRP. 4. Initiate physical and Occupational Therapy, evaluating and treating limbs and gait. 5. Initiate lamotrigine 25 mg twice a day. Neurology can titrate this as an outpatient. If she makes considerable improvement on this medication, I may taper down topiramate. Again, this would all be done as an outpatient. 6. Sleep medicine reevaluation as an outpatient and consider CPAP for known sleep apnea 7. Consider psychiatric evaluation and treatment as an outpatient. 8. Neurology can follow 2 to 3 weeks after discharge as an outpatient Overall, I spent a total of 120 minutes with this case, including review of records, direct evaluation of the patient at bedside, report generation, and discussion of the case with the patient and RN at bedside, and Dr. Harden, including differential diagnosis and treatment options. History of Present Illness Reason for Consultation: Patient is a 59-year-old, who I was asked to see at the request of STEPHANIE Dill, for neurologic evaluation regarding seizures versus pseudoseizures. Requesting Physician: Mandy BROWN Attending Physician: Mayur Schuster MD History of Present Illness Patient is a 59-year-old, well-known to me who I been following intermittently since the mid . I have followed her regularly in neurology clinic with the neurology PA's for the last 15 years. 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 The patient had been doing fairly well over the last couple of years, being fairly stable. The patient's migraine headaches have improved with topiramate Emgality shots. Atypical migraine consists of an occipital pain which radiates to include the whole head. There is photophobia and phonophobia and there may be nausea. They occur randomly without aura or warning. She gets a migraine perhaps once or twice a month. Prior to Emgality they were much more frequent. The patient continues to have significant stress and anxiety and depression. She was under some stress last year 1 losing her apartment but this has improved and that stress has abated. She is on no specific mood medication. The patient has a history of sensorimotor polyneuropathy as noted by an EMG in August 2022. Patient has poor sleep and has known sleep apnea. She states that she frequently finds herself snoring before she is asleep. She does not use CPAP and has not seen sleep medicine in a number of years. The patient has a history of spells. She states the spells have been occurring ever since childhood intermittently. The spells have been called seizures and pseudoseizures. More recently she will have spells about 3 times a week. These will be triggered by light or noise but most of the time occur without any warning. Sometimes she will just "drop" and fall to the ground without warning. She may or may not get hurt. This happened recently but she did not fracture any bones. Other spells would consist of the onset of blurry or double vision, vertigo, or muffled sounds in her ears. She would feel weak in general and many times could not move. She could be rigid or shake or just pass out. Many of these episodes she remembers throughout the spell, remembering that she could not move or speak. Episodes tend to last 15 to 30 minutes on average. Her most recent MRI of the brain was in March 2022 and was unremarkable/normal. Most recent EEG in July 2021 was normal awake and asleep. This was done soon after a "big" episode. Over the last week the patient has not had any specific head injury, illness, or new stressor. She came to the neurology office in the morning of August 16 feeling well. When she was put into the examination room she had the sudden onset of a spell consisting of inability to move or speak (she recalls this to a degree but also does not recall other aspects). She was disc 5 by the physicians perinatal breastfeeding assistant as being slow and stiff in her limbs with her mouth, her hands twitching in a circular motion bilaterally, and she was not responsive to voice or gentle shaking. The physicians perinatal breastfeeding assistant removed her sunglasses and her eyes were somewhat up into the right but not consistent. After a 10-minute duration the patient started responding and was somewhat confused and was coughing. She felt that her right side was weak and she had trouble swallowing. She had difficulty remembering except that she could not move or speak. She felt somewhat tired and "out of it". From the office she was sent to the emergency room. The patient arrived at the emergency room at 06/01/2005 with a temperature of 36.8, pulse 65 and regular, respiratory rate 14, blood pressure 194/96, and O2 saturation 100%. In the emergency room she told the physician that she could not move. Her speech was hesitant. According to the ER physician she was "keenly alert and responsive" with normal cranial nerves. CBC and CHEM profile were unremarkable. CT scan of the head was unremarkable/normal Prolactin level was 4.84 (normal 2.7-19) and BioFire was negative. Drug screen was negative and alcohol level was 0. TSH was 2.56, magnesium 2.1 and phosphorus 3.3. She had a negative treponema pallidum antibody. Because of her unresponsive episodes and generalized weakness she was given 0.5 mg Ativan IV. The patient remembers that she improved with her symptoms rey etime after this and had no more spells. According to the patient's RN, she had no episodes or spells overnight and this morning was doing well. Patient herself states that she has photophobia and n eeds to wear the dark glasses. Her throat is a little bit "scratchy" and her vision is a little bit blurry. She has decreased hearing bilaterally and trouble swallowing but these are chronic intermittent issues otherwise, she states that she feels back to baseline. Allergies Allergy/AdvReac Type Severity Reaction Status Date / Time nut - unspecified Allergy Anaphylaxis Verified 08/17/24 08:55 Sulfa (Sulfonamide AdvReac Intermediate GI SYMPTOMS Verified 05/09/24 10:16 Antibiotics) various allergies Allergy Severe Anaphylaxis Uncoded 05/09/24 10:16 Home Medications Medication Instructions Recorded Confirmed Type albuterol sulfate 90 mcg/actuation 2 - 4 puff inhalation Q6H PRN 08/14/18 08/17/24 History aerosol inhaler (Ventolin HFA) Shortness Of Breath Or Wheezing cetirizine 10 mg tablet (Zyrtec) 10 mg PO QAM 08/14/18 08/17/24 History epinephrine 0.3 mg/0.3 mL 0.3 mg IM Q3H PRN Anaphylaxis 08/14/18 08/17/24 History injection, auto-injector (EpiPen) ergocalciferol (vitamin D2) 1,250 50,000 unit PO WK 08/14/18 08/17/24 History mcg (50,000 unit) capsule (Vitamin D2) fluticasone propionate 50 2 spray intranasal QAM 08/14/18 08/17/24 History mcg/actuation nasal spray,suspension (Flonase Allergy Relief) levothyroxine 25 mcg tablet 25 mcg PO QAM 08/14/18 08/17/24 History pantoprazole 40 mg tablet,delayed 40 mg PO HS 08/14/18 08/17/24 History release (Protonix) ranitidine HCl 150 mg tablet 150 mg PO BID 08/14/18 08/16/24 History azelastine 137 mcg (0.1 %) nasal 1 sprays intranasal BID 12/22/19 08/17/24 History spray fluticasone 250 mcg-salmeterol 50 1 puffs inhalation BID 12/22/19 08/17/24 History mcg/dose blistr powdr for inhalation fluticasone propionate 110 1 puffs inhalation BID 12/22/19 08/17/24 History mcg/actuation HFA aerosol inhaler atorvastatin 20 mg tablet 20 mg PO QPM dyslipidemia 07/15/21 08/17/24 History meclizine 25 mg chewable tablet 25 mg PO DAILY PRN dizziness 02/06/22 08/17/24 History (Bonine) diclofenac sodium 1 % topical gel 2 g topical QID PRN Pain 08/04/22 08/17/24 History (Voltaren Arthritis Pain) diphenhydramine HCl 25 mg capsule 25 mg PO TID PRN 02/04/23 08/17/24 History (Benadryl) ITCHING/RESTLESSNESS empagliflozin 10 mg tablet 10 mg PO DAILY 02/04/23 08/17/24 History (Jardiance) famotidine 40 mg tablet 40 mg PO HS 02/04/23 08/17/24 History lidocaine (PF) 40 mg/mL (4 %) 40 mg IM Q3MO 02/04/23 08/17/24 History injection solution ondansetron 8 mg disintegrating 8 mg PO Q8H PRN NAUSEA/VOMITING 02/04/23 08/17/24 History tablet losartan 25 mg tablet 50 mg PO DAILY 05/12/23 08/17/24 History galcanezumab-gnlm 120 mg/mL 120 mg subcut ONCE 30 days #30 mL 02/23/24 08/17/24 Rx subcutaneous pen injector (Emgality Pen) topiramate 200 mg tablet 200 mg PO BID 90 days #180 tabs 02/23/24 08/17/24 Rx gabapentin 800 mg tablet 800 mg PO TID #270 tabs 06/21/24 08/17/24 Rx ketoconazole 2 % shampoo 1 applic topical Q14D 08/16/24 08/17/24 History latanoprost 0.005 % eye drops 1 drp ophthalmic (eye) DAILY 08/16/24 08/17/24 History montelukast 10 mg tablet 10 mg DAILY 08/17/24 08/17/24 History Patient History Medical History Chronic vertigo Surgical History No history of previous surgery Family History Mother No pertinent family history Social History Smoking Status: Never smoker Hx Alcohol Use: No Hx Substance Use: No Preferred Language: Spanish Communication Ability: Effective Home Extension Agent Required: No Beliefs That Will Affect Care: None marital status: Current Living Situation: Spouse Feels Safe at Home: Yes Safety Concerns: Feels Safe At This Time Assistive Devices: Glasses and Walker Review of Systems Constitutional: + fatigue and + weakness; no fever Eyes: + worsening vision; no diplopia and no e ye pain Ear, Nose, Mouth, Throat: + hearing loss; no ear pain, no tinnitus , no dizziness, no snoring, no hoarseness and no dysphagia Respiratory: no cough and no dyspnea Cardiovascular: no chest pain, no palpitations and no lightheadedness Gastrointestinal: no abdominal pain, no nausea and no vomiting Genitourinary: no dysuria, no urinary frequency and no urinary incontinence Musculoskeletal: + back pain, + neck pain and + joint ellen n; no radicular pain and no myalgia Integumentary: no rash and no lesions Neurologic: + gait abnormality, + generalized weakne ss and + headache(s); no localized weakness, no tingling, no numbness, no tremor(s), no abnormal movements, no abnormal speech, no confusion and no memory loss Psychiatric: + depression and + anxiety; no irritabil ity, no difficulty concentrating, no confusion and no hallucinations Endocrine: no fatigue and no flushing Hematologic / Lymphatic: no easy bleeding and no easy bruising Allergy / Immunological: no urticaria and no problem reported Exam (Neuro) Physical Exam: The patient is right-handed. The patient is awake, alert, and attentive. Speech is normal without any aphasia or dysarthria. Mentation and thought processes are intact, with full orientation and normal fund of knowledge. Mood and affect are normal and appropriate. Appearance and grooming are normal. Short and long-term memory are intact to conversation. Pupils are 4 mm bilaterally and reactive to light. Extraocular eye muscles are intact without nystagmus. Visual acuity and visual mena seem normal grossly to confrontation. There are no deficits to sensation in the face in all 3 distributions of the fifth cranial nerve bilaterally. Corneal reflexes are positive bilaterally. Facial strength and symmetry was normal bilaterally. Hearing seems intact grossly to voice and finger rub bilaterally. Palate moves well without asy mmetry. There is normal sternocleidomastoid and trapezius strength bilaterally. Tongue is midline with good strength bilaterally. Neck has a full range of motion without discomfort. There are no cervical bruits bilaterally. There are no cranial or ocular bruits. Heart is without murmur. There is a regular rhythm and rate. Cervical spine is tender to palpate in the paraspinals of the cervical spinous processes but there was no spasm. Thoracic and lumbar spine are nontender to palpation. Gait was not specifically tested. Stance sitting up in bed is quite normal and she can sit with legs dangling at the edge of the bed. Although it took some effort, she did stand on her own power and maintained a stance with feet together. With outstretched arms there is no drift. There are no resting, postural, or action tremors. There is no ataxia with finger to nose testing. There is good facility in the hands. No other abnormal involuntary movements are noted. Motor strength is 5/5 diffusely in the arms bilaterally including deltoids, biceps, triceps, brachioradialis, wrist flexors and extensors, residential glazier, and intrinsic hand muscles. Motor strength is 5/5 diffusely in the legs bilaterally including hip flexors, quadriceps, hamstrings, gastrocnemius, tibialis anterior, tibialis posterior, and Peroneii muscles bilaterally. Toe extensors are normal and there is good bulk in the extensor digitorum brevis muscles bilaterally. The limbs have good tone without rigidity or spasticity. There is no atrophy noted in the muscles. Muscle bulk is normal, there is no tenderness to palpation, no myotonia to percussion, and no fasciculations seen. Sensory examination is intact to touch and pin throughout all 4 limbs diffusely. Reflexes are 2/4 in the biceps, triceps, and brachioradialis tendons bilaterally. Reflexes were 1/4 in the quadricep tendons bilaterally and 0/4 in the Achilles tendons bilaterally. Toes are downgoing with plantar stimulation bilaterally. Peripheral pulses are present and of normal quality distally in all 4 limbs. There is no peripheral edema noted in the limbs. Results & Data Vital Signs (Past 12 Hours) Vital Signs Temp Pulse Resp BP Pulse Ox O2 Del Method 08/17/24 07:16 36.6 C 67 18 138/84 92 Room Air PG Care Time/CCT Total # of Minutes Spent Total Time Spent with Patient: Total time spent is greater than 50% in coordination of care (as documented) at patient's floor/unit and/or counseling patient: Coding Level of Care Code 16127 INT INP/OBS CARE 3/75MIN Diagnoses History of psychogenic nonepileptic seizure Z87.898 Seizure-like activity R56.9 Classic migraine with aura G43.109 Multiple falls R29.6 Idiopathic polyneuropathy G60.9 Spine pain M54.9 Time Spent (min) 120
--- NOTE | 2024-08-17 10:06 | Electroencephalogram ---
EEG Procedure Note Date of Service August 17, 2024 Start / End Times Start Time: 930 End Time: 950 Referring Physician Mayur Schuster MD History 59-year-old with history of unusual episodes, question seizures Home Medication List Medication Instructions Recorded Confirmed Type albuterol sulfate 90 mcg/actuation 2 - 4 puff inhalation Q6H PRN 08/14/18 08/17/24 History aerosol inhaler (Ventolin HFA) Shortness Of Breath Or Wheezing cetirizine 10 mg tablet (Zyrtec) 10 mg PO QAM 08/14/18 08/17/24 History epinephrine 0.3 mg/0.3 mL 0.3 mg IM Q3H PRN Anaphylaxis 08/14/18 08/17/24 History injection, auto-injector (EpiPen) ergocalciferol (vitamin D2) 1,250 50,000 unit PO WK 08/14/18 08/17/24 History mcg (50,000 unit) capsule (Vitamin D2) fluticasone propionate 50 2 spray intranasal QAM 08/14/18 08/17/24 History mcg/actuation nasal spray,suspension (Flonase Allergy Relief) levothyroxine 25 mcg tablet 25 mcg PO QAM 08/14/18 08/17/24 History pantoprazole 40 mg tablet,delayed 40 mg PO HS 08/14/18 08/17/24 History release (Protonix) ranitidine HCl 150 mg tablet 150 mg PO BID 08/14/18 08/16/24 History azelastine 137 mcg (0.1 %) nasal 1 sprays intranasal BID 12/22/19 08/17/24 History spray fluticasone 250 mcg-salmeterol 50 1 puffs inhalation BID 12/22/19 08/17/24 History mcg/dose blistr powdr for inhalation fluticasone propionate 110 1 puffs inhalation BID 12/22/19 08/17/24 History mcg/actuation HFA aerosol inhaler atorvastatin 20 mg tablet 20 mg PO QPM dyslipidemia 07/15/21 08/17/24 History meclizine 25 mg chewable tablet 25 mg PO DAILY PRN dizziness 02/06/22 08/17/24 History (Bonine) diclofenac sodium 1 % topical gel 2 g topical QID PRN Pain 08/04/22 08/17/24 History (Voltaren Arthritis Pain) diphenhydramine HCl 25 mg capsule 25 mg PO TID PRN 02/04/23 08/17/24 History (Benadryl) ITCHING/RESTLESSNESS empagliflozin 10 mg tablet 10 mg PO DAILY 02/04/23 08/17/24 History (Jardiance) famotidine 40 mg tablet 40 mg PO HS 02/04/23 08/17/24 History lidocaine (PF) 40 mg/mL (4 %) 40 mg IM Q3MO 02/04/23 08/17/24 History injection solution ondansetron 8 mg disintegrating 8 mg PO Q8H PRN NAUSEA/VOMITING 02/04/23 08/17/24 History tablet losartan 25 mg tablet 50 mg PO DAILY 05/12/23 08/17/24 History galcanezumab-gnlm 120 mg/mL 120 mg subcut ONCE 30 days #30 mL 02/23/24 08/17/24 Rx subcutaneous pen injector (Emgality Pen) topiramate 200 mg tablet 200 mg PO BID 90 days #180 tabs 02/23/24 08/17/24 Rx gabapentin 800 mg tablet 800 mg PO TID #270 tabs 06/21/24 08/17/24 Rx ketoconazole 2 % shampoo 1 applic topical Q14D 08/16/24 08/17/24 History latanoprost 0.005 % eye drops 1 drp ophthalmic (eye) DAILY 08/16/24 08/17/24 History montelukast 10 mg tablet 10 mg DAILY 08/17/24 08/17/24 History Inpatient Medication List Atorvastatin Calcium (Atorvastatin 20 Mg Tab) 20 mg PO QPM VLADIMIR Stop: 09/15/24 20:59 Last Admin: 08/16/24 22:40 Dose: 20 mg Documented By: HECTOR Enoxaparin Sodium (Enoxaparin Inj 40 Mg/0.4 Ml Syr) 40 mg SQ Q12H VLADIMIR Stop: 09/15/24 18:47 Last Admin: 08/17/24 06:26 Dose: 40 mg Documented By: Admin: 08/16/24 19:44 Dose: 40 mg Documented By: [email or web address] Famotidine (Famotidine 40 Mg Tablet) 40 mg PO DAILY VLADIMIR Stop: 09/16/24 08:59 Last Admin: 08/17/24 09:15 Dose: 40 mg Documented By: CAROL ANN Fluticasone/Vilanterol (Fluticasone/Vilanterol 200/25mcg 14 Puffs/Inhaler) 1 puffs INH DAILY VLADIMIR Stop: 09/16/24 08:59 Last Admin: 08/17/24 09:15 Dose: 1 puffs Documented By: CAROL ANN Gabapentin (Gabapentin 800 Mg Tab) 800 mg PO TID VLADIMIR Stop: 09/15/24 20:59 Last Admin: 08/17/24 09:15 Dose: 800 mg Documented By: CAROL ANN Admin: 08/16/24 22:40 Dose: 800 mg Documented By: HECTOR Insulin Aspart (Insulin Aspart Per Unit Charge) 0 units SC ACHS VLADIMIR Stop: 09/15/24 20:59 Last Admin: 08/17/24 08:57 Dose: Not Given Documented By: CAROL ANN Admin: 08/16/24 22:13 Dose: Not Given Documented By: HECTOR Levothyroxine Sodium (Levothyroxine Sodium 25 Mcg Tablet) 25 mcg PO DAILYBB VLADIMIR Stop: 09/16/24 06:29 Last Admin: 08/17/24 06:12 Dose: 25 mcg Documented By: HECTOR Losartan Potassium (Losartan Potassium 50 Mg Tab) 50 mg PO DAILY VLADIMIR Stop: 09/16/24 08:59 Last Admin: 08/17/24 09:15 Dose: 50 mg Documented By: CAROL ANN Pantoprazole Sodium (Pantoprazole 40 Mg Tab) 40 mg PO HS VLADIMIR Stop: 09/15/24 20:59 Last Admin: 08/16/24 22:39 Dose: 40 mg Documented By: HECTOR Topiramate (Topiramate 100 Mg Tab) 200 mg PO BID VLADIMIR Stop: 09/15/24 20:59 Last Admin: 08/17/24 09:15 Dose: 200 mg Documented By: CAROL ANN Admin: 08/16/24 22:39 Dose: 200 mg Documented By: HECTOR Discontinued Medications Lorazepam (Lorazepam 2 Mg/1 Ml Vial) 0.5 mg IV NOW STA Stop: 08/16/24 12:48 Last Admin: 08/16/24 13:02 Dose: 0.5 mg Documented By: MEL Description This is a 21 electrode EEG with a single channel dedicated to limited EKG. The electrodes were placed in accordance with the International 10-20 system. Interpretation The predominant background activity consists of regular 9 hz activity, of up to 30 mV in amplitude, seen symmetrically distributed over the posterior head regions bilaterally, spreading symmetrically anteriorly. This activity attenuates some with eye-opening and other alerting procedures. Photic stimulation was performed and elicited no change in the background activity and no abnormal responses were seen (alone because a lot of eye mov ements). Hyperventilation was not performed. A mild (to moderate) amount of muscle and movement artifact activity contaminated the recording, yet did not hinder interpretation to any significant degree. Movement artifact activity was most prominent in the frontal head regions bilaterally due to eye movements and eye blink. Throughout the waking portion of the recording, no focal abnormalities, abnormal slow activity, or potentially epileptogenic discharges were seen. The patient entered the drowsy state with no further activation. Towards the latter portion of the recording, the trailer technician noted that the patient was unresponsive laying with her eyes closed and not responding to voice or gentle shake. The background activity did not change at all during this several minute episode of altered (or no) responsiveness. In summary, therefore, this EEG was normal during wakefulness and drowsiness. Despite her having atypical unresponsive episode, the EEG was quite normal showing no change in the background activity during the spell. No focal abnormalities, potentially epileptogenic discharges, or abnormal slow activity were seen. Clinical Correlation The absence of potentially epileptogenic activity, especially during a typical abnormal episode excludes a seizure disorder and is consistent with psychogenic nonepileptic seizures
--- NOTE | 2024-08-17 10:30 | Hospitalist Progress Note ---
Date of Service August 17, 2024 Assessment & Plan (1) Seizure-like activity: (2) Multiple falls: (3) Ambulatory dysfunction: (4) DM type 2 (diabetes mellitus, type 2): (5) Hypothyroidism: (6) Common migraine without aura: (7) Mild intermittent asthma: (8) Arthralgia of multiple joints: (9) GERD (gastroesophageal reflux disease): (10) Vitamin D deficiency: (11) Allergic rhinitis: Plan Per admitting service notes with addendum: Seizure like activity Likely pseudoseizures Work up in the ED reassuring against seizure-like activity with negative head CT, EKG with NSR, and CBC, CMP, troponin, and viral panel all unremarkable Patient not responding during episodes but blinking and swatting hand away during assessment and complete recall of "episodes" which is not consistent with true seizure Order drug screen and alcohol level Check mag and phos Consult neurology and psych Continue home topiramate and gabapentin 08/17 Noted to have an unresponsive, tensing up episode while EEG was in progress Discussed with Dr. Ortega No signs of epileptiform changes shown in the EEG while patient was having above episode Brain MRI, ESR, CRP, Lyme screen, Topamax level ordered Will start Lamictal 25 mg twice daily per neurology service Psychiatry service also consulted Continue to monitor Multiple falls, ambulatory dysfunction Patient failed ambulatory trial prior to dc from ED Ambulates with walker occasionally PT and OT consult 08/17 PT OT evaluation today Diabetes mellitus type 2 Sliding scale insulin while in hospital Holding home Jardiance Continue home atorvastatin Hypertension Continue home losartan Hypothyroidism Continue home levothyroxine Migraines Holding home Emgality Mild persistent asthma Continue home Advair and PRN albuterol Arthralgia Continue home Voltaren gel GERD Continue home pantoprazole and famotidine DVT Prophylaxis: subQ lovenox Code Status: FULL CODE PCP: Dr Eliazar Winston MD Disposition:PT /OT evaluation in progress Admission and Anticipated Discharge Date Admission Date: August 16, 2024 Subjective Follow-up for possible breakthrough seizures versus pseudoseizures, etc. First seen while EEG is in progress Patient sitting up, calm, comfortable Notified by RN after a few minutes regarding another episode of unresponsiveness While EEG was about to finish, the patient was noted to have tensed up, not responding to verbal stimuli Episode lasted about 10 minutes Patient seen at the bedside, awake alert, occasionally with knod and try to answer yes/no questions Not in distress, no signs of pain, shortness of breath Review of Systems Review of Systems: all noted and negative except for above Physical Exam Physical Exam: General- awake, alert, not oriented, not in distress, breathing with no effort or accessory muscle use Eyes- anicteric Neck- no JVD Lungs- clear breath sounds bilaterally, no rales/wheezes Heart- normal rate, regular rhythm; no murmurs Abdomen- normal bowel sounds, nondistended, soft, nontender Extremities- no pretibial edema, no calf tenderness Neuro- alert, oriented x 0, no other gross focal neurologic deficits Skin- warm & dry Results & Data Results & Data Vital Signs (Past 12 Hours) Vital Signs Temp Pulse Pulse Resp BP BP Pulse Ox 08/17/24 10:02 91 H 145/83 H 08/17/24 09:52 96 H 16 162/93 H 93 08/17/24 07:16 36.6 C 67 18 138/84 92 O2 Del Method 08/17/24 10:02 08/17/24 09:52 Room Air 08/17/24 07:16 Room Air all noted and reviewed including below
[2024-08-17] MEDS: lamoTRIgine 25 MG TAB PO SCH (11:02)
--- NOTE | 2024-08-17 14:56 | Psychiatric Consultation ---
Date of Consultation August 17, 2024 Impression / Recommendations Impression Diagnostically consistent with possible PTSD and common for stress response to show up for some individuals as functional neurologic symptoms including as psychogenic nonepileptic seizures. Outpatient therapy is likely to offer the most benefit and she is agreeable to this, will attempt referral for intensive outpatient therapy program. No acute safety concerns, she denies SI and is future oriented. Overall, I spent a total of 60 minutes with this case including review of chart records, review of labwork, direct evaluation of the patient at bedside, counseling the patient, discussion of the patient with the Nurse and with the hospitalist provider, discussion with the psychiatric liason during clinical rounds and documentation in the electronic health record. (1) History of psychogenic nonepileptic seizure: (2) Seizure-like activity: (3) Trauma and stressor-related disorder: Plan -Agree with use of lamictal as this can also have mood benefits -Psych liason to work on referral for [facility] to [facility] for psychotherapy Psych History Identifying Data Radha Busby is a 59 year old woman with PMH significant for seizure disorder, type 2 diabetes mellitus, HTN, hypothyroidism, migraines, chronic pain, mild persistent asthma, allergic rhinitis, GERD, OA of bilateral knees, vitamin D deficiency, and ambulatory dysfunction who presented to the ED today for a seizure-like episode admitted medically. psychiatry consulted for recommendations for catatonia concern. Chief Complaint "I've dealt with the trauma in my mind and forgiven people but my body won't settle". History of Present Illness Radha was admitted due to concern for seizures and evaluated by neurology who noted known history of psychogenic nonepileptic seizures (PNES) but also with possible history of epileptic seizures (though never observed on EEG). Seen today she describes significant early life adverse experiences including foster care and adoption. She discusses recent stress due to landlord selling her rental property which resulted in multiple people viewing the apartment over May and June which she found "triggering" due to past homelessness. However, at this point it's anticipated she'll be able to remain in the apartment with the new director content marketing just taking over the lease. She feels her mood is farily stable, denies depression and anxiety, she feels she responds "normally" to difficult situations. But she does have trauma symptoms including flashbacks and notes that her body seems to hold onto the trauma memories the most. She tried therapy once in the past and had a bad experience but is very open to trying it again. Allergies Allergy/AdvReac Type Severity Reaction Status Date / Time nut - unspecified Allergy Anaphylaxis Verified 08/17/24 08:55 Sulfa (Sulfonamide AdvReac Intermediate GI SYMPTOMS Verified 05/09/24 10:16 Antibiotics) various allergies Allergy Severe Anaphylaxis Uncoded 05/09/24 10:16 Fruit & Vegetable (Raw) Allergy Unknown Uncoded 08/17/24 10:16 Home Medications Medication Instructions Recorded Confirmed Type albuterol sulfate 90 mcg/actuation 2 - 4 puff inhalation Q6H PRN 08/14/18 08/17/24 History aerosol inhaler (Ventolin HFA) Shortness Of Breath Or Wheezing cetirizine 10 mg tablet (Zyrtec) 10 mg PO QAM 08/14/18 08/17/24 History epinephrine 0.3 mg/0.3 mL 0.3 mg IM Q3H PRN Anaphylaxis 08/14/18 08/17/24 History injection, auto-injector (EpiPen) ergocalciferol (vitamin D2) 1,250 50,000 unit PO WK 08/14/18 08/17/24 History mcg (50,000 unit) capsule (Vitamin D2) fluticasone propionate 50 2 spray intranasal QAM 08/14/18 08/17/24 History mcg/actuation nasal spray,suspension (Flonase Allergy Relief) levothyroxine 25 mcg tablet 25 mcg PO QAM 08/14/18 08/17/24 History pantoprazole 40 mg tablet,delayed 40 mg PO HS 08/14/18 08/17/24 History release (Protonix) ranitidine HCl 150 mg tablet 150 mg PO BID 08/14/18 08/16/24 History azelastine 137 mcg (0.1 %) nasal 1 sprays intranasal BID 12/22/19 08/17/24 History spray fluticasone 250 mcg-salmeterol 50 1 puffs inhalation BID 12/22/19 08/17/24 History mcg/dose blistr powdr for inhalation fluticasone propionate 110 1 puffs inhalation BID 12/22/19 08/17/24 History mcg/actuation HFA aerosol inhaler atorvastatin 20 mg tablet 20 mg PO QPM dyslipidemia 07/15/21 08/17/24 History meclizine 25 mg chewable tablet 25 mg PO DAILY PRN dizziness 02/06/22 08/17/24 History (Bonine) diclofenac sodium 1 % topical gel 2 g topical QID PRN Pain 08/04/22 08/17/24 History (Voltaren Arthritis Pain) diphenhydramine HCl 25 mg capsule 25 mg PO TID PRN 02/04/23 08/17/24 History (Benadryl) ITCHING/RESTLESSNESS empagliflozin 10 mg tablet 10 mg PO DAILY 02/04/23 08/17/24 History (Jardiance) famotidine 40 mg tablet 40 mg PO HS 02/04/23 08/17/24 History lidocaine (PF) 40 mg/mL (4 %) 40 mg IM Q3MO 02/04/23 08/17/24 History injection solution ondansetron 8 mg disintegrating 8 mg PO Q8H PRN NAUSEA/VOMITING 02/04/23 08/17/24 History tablet losartan 25 mg tablet 50 mg PO DAILY 05/12/23 08/17/24 History galcanezumab-gnlm 120 mg/mL 120 mg subcut ONCE 30 days #30 mL 02/23/24 08/17/24 Rx subcutaneous pen injector (Emgality Pen) topiramate 200 mg tablet 200 mg PO BID 90 days #180 tabs 02/23/24 08/17/24 Rx gabapentin 800 mg tablet 800 mg PO TID #270 tabs 06/21/24 08/17/24 Rx ketoconazole 2 % shampoo 1 applic topical Q14D 08/16/24 08/17/24 History latanoprost 0.005 % eye drops 1 drp ophthalmic (eye) DAILY 08/16/24 08/17/24 History montelukast 10 mg tablet 10 mg DAILY 08/17/24 08/17/24 History Patient History Medical History Chronic vertigo Surgical History No history of previous surgery Family History Mother No pertinent family history Social History Smoking Status: Never smoker Hx Alcohol Use: No Hx Substance Use: No Preferred Language: [place] Communication Ability: Effective [employer] Worker Required: No Beliefs That Will Affect Care: None marital status: Current Living Situation: Spouse Feels Safe at Home: Yes Safety Concerns: Feels Safe At This Time Assistive Devices: Glasses and Walker Physical Exam Psychiatric: Affect: + constricted affect Mood: no depressed mood and no anxious mood Thought Process: goal directed thought process, linear/logical thought process and clear/coherent thought process Thought Content: reality based without delusions Suicidal Thoughts: denies suicidal thoughts Homicidal Thoughts: denies homicidal thoughts Hallucinations: no auditory hallucinations and no visual hallucinations Insight: + fair insight Judgment: + fair judgement Vital Signs (Past 24 Hours): Last Vital Signs Temp 36.6 C 08/17/24 07:16 Pulse 91 H 08/17/24 10:02 Resp 16 08/17/24 09:52 BP 145/83 H 08/17/24 10:02 Pulse Ox 93 08/17/24 09:52 O2 Del Method Room Air 08/17/24 09:52 Results & Data (PSY) Medications Administered Atorvastatin Calcium (Atorvastatin 20 Mg Tab) 20 mg PO QPM [facility] Stop: 09/15/24 20:59 Last Admin: 08/16/24 22:40 Dose: 20 mg Documented By: HETCOR Enoxaparin Sodium (Enoxaparin Inj 40 Mg/0.4 Ml Syr) 40 mg SQ Q12H [facility] Stop: 09/15/24 18:47 Last Admin: 08/17/24 06:26 Dose: 40 mg Documented By: Admin: 08/16/24 19:44 Dose: 40 mg Documented By: YAAKOV Famotidine (Famotidine 40 Mg Tablet) 40 mg PO DAILY VLADIMIR Stop: 09/16/24 08:59 Last Admin: 08/17/24 09:15 Dose: 40 mg Documented By: CAROL ANN Fluticasone/Vilanterol (Fluticasone/Vilanterol 200/25mcg 14 Puffs/Inhaler) 1 puffs INH DAILY VLADIMIR Stop: 09/16/24 08:59 Last Admin: 08/17/24 09:15 Dose: 1 puffs Documented By: CAROL ANN Gabapentin (Gabapentin 800 Mg Tab) 800 mg PO TID VLADIMIR Stop: 09/15/24 20:59 Last Admin: 08/17/24 14:25 Dose: 800 mg Documented By: CAROL ANN Admin: 08/17/24 09:15 Dose: 800 mg Documented By: CAROL ANN Admin: 08/16/24 22:40 Dose: 800 mg Documented By: HECTOR Insulin Aspart (Insulin Aspart Per Unit Charge) 0 units SC ACHS [facility] Stop: 09/15/24 20:59 Last Admin: 08/17/24 12:37 Dose: 4 units Documented By: CAROL ANN Co-signed By: Admin: 08/17/24 08:57 Dose: Not Given Documented By: CAROL ANN Admin: 08/16/24 22:13 Dose: Not Given Documented By: HECTOR Lamotrigine (Lamotrigine 25 Mg Tab) 25 mg PO BID [facility]; Protocol Stop: 09/16/24 10:44 Last Admin: 08/17/24 11:02 Dose: 25 mg Documented By: CAROL ANN Levothyroxine Sodium (Levothyroxine Sodium 25 Mcg Tablet) 25 mcg PO DAILYBB [facility] Stop: 09/16/24 06:29 Last Admin: 08/17/24 06:12 Dose: 25 mcg Documented By: HECTOR Losartan Potassium (Losartan Potassium 50 Mg Tab) 50 mg PO DAILY VLADIMIR Stop: 09/16/24 08:59 Last Admin: 08/17/24 09:15 Dose: 50 mg Documented By: CAROL ANN Pantoprazole Sodium (Pantoprazole 40 Mg Tab) 40 mg PO HS [facility] Stop: 09/15/24 20:59 Last Admin: 08/16/24 22:39 Dose: 40 mg Documented By: HECTOR Topiramate (Topiramate 100 Mg Tab) 200 mg PO BID [facility] Stop: 09/15/24 20:59 Last Admin: 08/17/24 09:15 Dose: 200 mg Documented By: CAROL ANN Admin: 08/16/24 22:39 Dose: 200 mg Documented By: HECTOR Coding Level of Care Code 13036 IN/OBS CONSULT LVL 4,60M Diagnoses History of psychogenic nonepileptic seizure Z87.898 Seizure-like activity R56.9 Trauma and stressor-related disorder F43.9
[2024-08-17 15:15] VITALS: RESP 18
[2024-08-17] MEDS: GADOBUTROL 65ML VIAL IV ONE (18:14)
--- NOTE | 2024-08-17 18:53 | Magnetic Resonance Report ---
MRI of the brain performed with and without IV contrast History: Seizures Comparison: Technique: Multiplanar T1 weighted, axial T2/FLAIR, and susceptibility images were obtained without intravenous contrast. Following intravenous gadolinium based contrast administration, axial T2 weighted, diffusion, and T1-weighted images were obtained. 9.5 mL Gadavist administered IV. Findings: No evidence for intracranial mass lesion, mass-effect, midline shift, or abnormal extra-axial fluid collection. Postcontrast images demonstrate no abnormal intracranial enhancement. The orbits are grossly unremarkable. The ventricles and sulci are within normal limits for age. The mesial temporal lobes appear relatively symmetric on the coronal T2 weighted images. No abnormally reduced diffusion or evidence for acute infarct. Normal intravascular flow voids. Impression: Normal brain MRI with and without IV contrast Electronically signed by Raúl Watt 08-17-2024 6:52 PM
--- NOTE | 2024-08-18 08:28 | Hospitalist Progress Note ---
Date of Service August 18, 2024 Assessment & Plan (1) Seizure-like activity: (2) Multiple falls: (3) Ambulatory dysfunction: (4) DM type 2 (diabetes mellitus, type 2): (5) Hypertension: (6) Hypothyroidism: (7) Common migraine without aura: (8) Mild intermittent asthma: (9) Arthralgia of multiple joints: (10) GERD (gastroesophageal reflux disease): (11) Vitamin D deficiency: (12) Allergic rhinitis: Plan Seizure like activity Work up in the ED reassuring against seizure-like activity with negative head CT, EKG with NSR, and CBC, CMP, troponin, and viral panel all unremarkable Patient not responding during episodes but blinking and swatting hand away during assessment and complete recall of "episodes" which is not consistent with true seizure Order drug screen and alcohol level Check mag and phos Consult neurology and psych Continue home topiramate and gabapentin Multiple falls, ambulatory dysfunction Patient failed ambulatory trial prior to dc from ED Ambulates with walker occasionally PT and OT consult Diabetes mellitus type 2 Sliding scale insulin while in hospital Holding home Jardiance Continue home atorvastatin Hypertension Continue home losartan Hypothyroidism Continue home levothyroxine Migraines Holding home Emgality Mild persistent asthma Continue home Advair and PRN albuterol Arthralgia Continue home Voltaren gel GERD Continue home pantoprazole and famotidine DVT Prophylaxis: subQ lovenox Code Status: FULL CODE PCP: Dr Elaizar Winston MD Disposition: Admit to med/surg Patient seen in collaboration with Dr. Winston. Please see addendum. I spent a total of 50 minutes coordinating, documenting and providing care for this patient excluding time spent in the performance of separately billed services or time spent by another provider/QHP. Admission and Anticipated Discharge Date Admission Date: August 17, 2024 Physical Exam Physical Exam: VITALS: Reviewed and VSS. GEN: Healthy appearing, well-developed, obese female, NAD. PSYCH: Good Judgment. AOx3. Normal memory, mood, and affect. HEENT: Head NC/AT, PERRL, EOMI, Nares without rhinorrhea, Nasal and oral mucosa pink NECK: Supple, with no masses. CV: RRR, no m/r/g. LUNGS: CTAB, no w/r/c. ABD: Soft, NT/ND, NBS, no masses or organomegaly. SKIN: Warm, well perfused. No skin rashes or abnormal lesions. MSK: No deformities, EXT: No clubbing, cyanosis, or edema. NEURO: Ambulating with walker. supervisor public message service grossly intact. No focal deficits. Results & Data Results & Data Vital Signs (Past 12 Hours) Vital Signs Temp Pulse Resp BP Pulse Ox O2 Del Method 08/18/24 07:55 36.8 C 64 18 132/85 92 Room Air 08/17/24 22:13 36.3 C L 64 18 141/86 H 92 Room Air (5) Hypertension Hypertension type: unspecified Qualified Code(s): I10 - Essential (primary) hypertension
--- NOTE | 2024-08-18 12:08 | Discharge Summary ---
Discharge Summary Date of Service August 18, 2024 Principal Dx & Hospital Course #1 = Principal Diagnosis (1) Seizure-like activity: (2) Multiple falls: (3) Ambulatory dysfunction: (4) DM type 2 (diabetes mellitus, type 2): (5) Hypertension: (6) Hypothyroidism: (7) Common migraine without aura: (8) Mild intermittent asthma: (9) Arthralgia of multiple joints: (10) GERD (gastroesophageal reflux disease): (11) Vitamin D deficiency: (12) Allergic rhinitis: Plan 59 year old female with PMH significant for seizure disorder, type 2 diabetes mellitus, HTN, hypothyroidism, migraines, chronic pain, mild persistent asthma, allergic rhinitis, GERD, OA of bilateral knees, vitamin D deficiency, and ambulatory dysfunction who presented to the ED on 08/16 for a seizure-like episode. Patient was at a neurology appointment where she could not talk or move. She was told to seek evaluation in the ED. Upon arrival to the ED, patient underwent work up including head CT with no acute abnormalities, EKG revealing NSR, stable labs including CBC, CMP, troponin, lactate, negative viral panel, and stable vitals. She was going to be discharged home and while attempting an ambulatory trial, the patient almost fell to the ground. Therefore, she was admitted for ambulatory dysfunction. Seizure like activity Work up in the ED reassuring against seizure-like activity with negative head CT, EKG with NSR, and CBC, CMP, troponin, lactate and viral panel all unremarkable Patient not responding during episodes but blinking and swatting hand away during assessment and complete recall of "episodes" which is not consistent with true seizure Further work up including lyme, ESR/CRP, drug screen, alcohol level, mag and phos, TSH all negative Neurology consulted and recommended MRI, EEG, topiramate level, addition of lamotrigine this admission MRI normal, EEG captured episode and findings were consistent with psychogenic nonepileptic seizures, topiramate level pending Psychiatry consulted and recommended outpatient therapy Continue topiramate 200mg bid and lamotrigine 25mg bid Neurology to follow up outpatient Psych referral to [facility] for psychotherapy Multiple falls, ambulatory dysfunction Patient failed ambulatory trial prior to dc from ED Ambulates with walker occasionally PT and OT recommended home health services Patient being discharged with home health PT and OT Diabetes mellitus type 2 Continue atorvastatin and gabapentin and resume Jardiance Hypertension Continue losartan Hypothyroidism Continue levothyroxine Migraines Resume Emgality Mild persistent asthma Continue Advair and PRN albuterol Arthralgia Continue Voltaren gel GERD Continue pantoprazole and famotidine Allergic rhinitis Continue cetirizine and nasal sprays Notes For Next Care Provider 59 year old female admitted for seizure like activity and ambulatory dysfunction. Seizure like episodes determined to be psychogenic nonepileptic seizures and neurology will continue to follow patient. Psych consult with referral made for outpatient therapy. PT and OT in hospital recommended home health services. Patient discharged to home with PT and OT home health services. Medication Changes From Visit Lamotrigine 25mg bid Admission HPI Per Admitting Provider 59 year old female with PMH significant for seizure disorder, type 2 diabetes mellitus, HTN, hypothyroidism, migraines, chronic pain, mild persistent asthma, allergic rhinitis, GERD, OA of bilateral knees, vitamin D deficiency, and ambulatory dysfunction who presented to the ED today for a seizure-like episode. Patient states that she was at a neurology appointment earlier today where she had one of her "episodes" where she could not talk or move. She was told to seek evaluation in the ED. Upon arrival to the ED, patient underwent work up includin g head CT with no acute abnormalities, EKG revealing NSR, stable labs including CBC, CMP, troponin, negative viral panel, and her vitals have been stable. During evaluation in the ED, she had an episode where she was unresponsive and would not interact with providers. She was given 0.5mg IV ativan and then became alert and oriented. She was going to be discharged home and while attempting an ambulatory trial, the patient almost fell to the ground. Therefore, she is being admitted for ambulatory dysfunction. When I saw the patient, she was alert and oriented and conversed well. She denies any pain or discomfort, headache, chest pain, SOB, abdominal pain, N/V/D, urinary or bowel problems. She endorses myalgia and joint pain all over her body, which is baseline for her. She reports that she has had multiple falls, but cannot recall when the last one happened. She states that she has been working on getting her strength back over the last 6 months by swimming. She has done physical therapy in the past. She uses a walker to ambulate on days that she is feeling particularly weak or swollen. She lives at home with her and daughter. She denies tobacco or alcohol use. Admission Exam Per Admitting Provider VITALS: Reviewed and VSS. GEN: Healthy appearing, well-developed, obese female, NAD. PSYCH: Good Judgment. AOx3. Normal memory, mood, and affect. HEENT: Head NC/AT, PERRL, EOMI, Nares without rhinorrhea, Nasal and oral mucosa pink NECK: Supple, with no masses. CV: RRR, no m/r/g. LUNGS: CTAB, no w/r/c. ABD: Soft, NT/ND, NBS, no masses or organomegaly. SKIN: Warm, well perfused. No skin rashes or abnormal lesions. MSK: No deformities, EXT: No clubbing, cyanosis, or edema. NEURO: Ambulating with walker. guitar instructor grossly intact. No focal deficits. Discharge Exam VITALS: Reviewed and VSS. GEN: Healthy appearing, well-developed, obese female, NAD. PSYCH: Good Judgment. AOx3. Normal memory, mood, and affect. HEENT: Head NC/AT, PERRL, EOMI, Nares without rhinorrhea, Nasal and oral mucosa pink NECK: Supple, with no masses. CV: RRR, no m/r/g. LUNGS: CTAB, no w/r/c. ABD: Soft, NT/ND, NBS, no masses or organomegaly. SKIN: Warm, well perfused. No skin rashes or abnormal lesions. MSK: No deformities, EXT: No clubbing, cyanosis, or edema. NEURO: Ambulating with walker. guitar instructor grossly intact. No focal deficits. Updated Medication List Medication Instructions Recorded Confirmed Type albuterol sulfate 90 mcg/actuation 2 - 4 puff inhalation Q6H PRN 08/14/18 History aerosol inhaler (Ventolin HFA) Shortness Of Breath Or Wheezing cetirizine 10 mg tablet (Zyrtec) 10 mg PO QAM 08/14/18 08/17/24 History epinephrine 0.3 mg/0.3 mL 0.3 mg IM Q3H PRN Anaphylaxis 08/14/18 08/17/24 History injection, auto-injector (EpiPen) ergocalciferol (vitamin D2) 1,250 50,000 unit PO WK 08/14/18 08/17/24 History mcg (50,000 unit) capsule (Vitamin D2) fluticasone propionate 50 2 spray intranasal QAM 08/14/18 08/17/24 History mcg/actuation nasal spray,suspension (Flonase Allergy Relief) levothyroxine 25 mcg tablet 25 mcg PO QAM 08/14/18 08/17/24 History pantoprazole 40 mg tablet,delayed 40 mg PO HS 08/14/18 08/17/24 History release (Protonix) ranitidine HCl 150 mg tablet 150 mg PO BID 08/14/18 08/16/24 History azelastine 137 mcg (0.1 %) nasal 1 sprays intranasal BID 12/22/19 08/17/24 History spray fluticasone 250 mcg-salmeterol 50 1 puffs inhalation BID 12/22/19 08/17/24 History mcg/dose blistr powdr for inhalation fluticasone propionate 110 1 puffs inhalation BID 12/22/19 08/17/24 History mcg/actuation HFA aerosol inhaler atorvastatin 20 mg tablet 20 mg PO QPM dyslipidemia 07/15/21 08/17/24 History meclizine 25 mg chewable tablet 25 mg PO DAILY PRN dizziness 02/06/22 08/17/24 History (Bonine) diclofenac sodium 1 % topical gel 2 g topical QID PRN Pain 08/04/22 08/17/24 History (Voltaren Arthritis Pain) diphenhydramine HCl 25 mg capsule 25 mg PO TID PRN 02/04/23 08/17/24 History (Benadryl) ITCHING/RESTLESSNESS empagliflozin 10 mg tablet 10 mg PO DAILY 02/04/23 08/17/24 History (Jardiance) famotidine 40 mg tablet 40 mg PO HS 02/04/23 08/17/24 History lidocaine (PF) 40 mg/mL (4 %) 40 mg IM Q3MO 02/04/23 08/17/24 History injection solution ondansetron 8 mg disintegrating 8 mg PO Q8H PRN NAUSEA/VOMITING 02/04/23 08/17/24 History tablet losartan 25 mg tablet 50 mg PO DAILY 05/12/23 08/17/24 History galcanezumab-gnlm 120 mg/mL 120 mg subcut ONCE 30 days #30 mL 02/23/24 08/17/24 Rx subcutaneous pen injector (Emgality Pen) topiramate 200 mg tablet 200 mg PO BID 90 days #180 tabs 02/23/24 08/17/24 Rx gabapentin 800 mg tablet 800 mg PO TID #270 tabs 06/21/24 08/17/24 Rx ketoconazole 2 % shampoo 1 applic topical Q14D 08/16/24 08/17/24 History latanoprost 0.005 % eye drops 1 drp ophthalmic (eye) DAILY 08/16/24 08/17/24 History montelukast 10 mg tablet 10 mg DAILY 08/17/24 08/17/24 History lamotrigine 25 mg tablet (Lamictal) 25 mg PO BID #60 tabs 08/18/24 Rx Hospital Stay Data Consultations 08/16/24 15:33 ED Decision to Admit Stat 08/16/24 17:05 Consult Neurology Routine Consult Psychiatry Routine Diagnostic Imagining Performed Head CT 08/16/24 12:47 CT head/brain wo con CLINICAL HISTORY: seizure like activity. TECHNIQUE: Multiple axial CT images of the head were obtained without contrast. A dose lowering technique was utilized adhering to the principles of ALARA. CT DOSE: 547.75 mGy.cm COMPARISON: 09/02/2023 FINDINGS: No intracranial hemorrhage seen. No mass effect, midline shift, or hydrocephalus. No skull fracture seen. Visualized paranasal sinuses and mastoid air cells are clear. IMPRESSION: No acute findings. ACT 112: Negative or not required by law. The above report was generated using voice recognition software. It may contain grammatical, syntax or spelling errors. Electronically signed by: Craig Bass M.D. 08/16/2024 2:20 PM Brain MRI 08/17/24 09:12 MRI of the brain performed with and without IV contrast History: Seizures Comparison: Technique: Multiplanar T1 weighted, axial T2/FLAIR, and susceptibility images were obtained without intravenous contrast. Following intravenous gadolinium based contrast administration, axial T2 weighted, diffusion, and T1-weighted images were obtained. 9.5 mL Gadavist administered IV. Findings: No evidence for intracranial mass lesion, mass-effect, midline shift, or abnormal extra-axial fluid collection. Postcontrast images demonstrate no abnormal intracranial enhancement. The orbits are grossly unremarkable. The ventricles and sulci are within normal limits for age. The mesial temporal lobes appear relatively symmetric on the coronal T2 weighted images. No abnormally reduced diffusion or evidence for acute infarct. Normal intravascular flow voids. Impression: Normal brain MRI with and without IV contrast Electronically signed by Raúl Watt 08-17-2024 6:52 PM Pending Results Patient Have Any Pending Studies at Discharge: Yes Discharge Instructions Given to Patient (Per Discharging Provider) You were admitted to the hospital after having seizure-like activity at your Neurology appointment and ambulatory dysfunction while in our ED on 08/16. Neurology was consulted for your seizure like activity and you underwent an MRI and EEG that demonstrated no epileptic seizures. We checked many labs that ruled out various infections and abnormalities. We checked a topiramate level to make sure your dose is adequate and that is still pending. You were also started on a new seizure medication. Psychiatry was also consulted and has set up outpatient therapy for you. You worked with physical therapy and occupational therapy who both thought you would benefit from therapy at home so you will be discharged with home health services. MEDICATION CHANGES: Please continue taking lamotrigine 25mg twice a day until you follow up with Neurology SUMMARY OF TEST RESULTS: See above PENDING TEST RESULTS: Topiramate level. Follow up with Neurology. RECOMMENDATIONS FOR FOLLOW-UP: Please follow up with your PCP after hospitalization Please follow up with Neurology and Psychiatry OTHER INSTRUCTIONS: Seek medical attention if you have: * temperature above 101 * chest pain or trouble breathing * abdominal pain, nausea, vomiting * diarrhea, dark stools or bloody stools * any unanswered questions or concerns Call 911 if symptoms are severe. It has been a pleasure taking care of you. Please take care of yourself. If you have any questions regarding your recent hospitalization please contact [facility] and request Sabina Obandoist @ [phone]. Fall Prevention Education Home Safety: * Clear pathways:Remove tripping hazards like loose rugs, clutter, and cords. * Good lighting:Ensure adequate lighting, especially at night, and consider nightlights. * Secure rugs:Use non-slip backing or double-sided tape to secure rugs. * Bathroom safety:Install grab bars in the bathroom and consider a shower chair. * Maintain your home:Regularly check for and fix any hazards, such as loose floorboards or uneven surfaces. Physical Activity and Balance: * Regular exercise:Encourage regular physical activity, including exercises t hat focus on balance and strength. * Balance and strength training:Consider enrolling in balance and strength training programs. * Consult with a healthcare provider:Discuss appropriate exercise routines with your doctor or physical therapist. Medications and Healthcare: * Medication review:Discuss any medications that might cause dizziness or drowsiness with your healthcare provider. * Regular check-ups:Schedule regular check-ups with your doctor to address any underlying conditions that might increase fall risk. * Vision and hearing:Have your eyes and hearing checked regularly. * Open communication:Encourage patients to openly communicate any concerns or questions about fall prevention with their healthcare team. Additional Tips: * Stand up slowly:Advise patients to stand up slowly from a sitting or lying position to avoid dizziness. * Wear appropriate footwear:Encourage the use of shoes with good traction. * Use assistive devices:If needed, use assistive devices like canes or wal kers. * Fall risk assessment:Discuss the importance of fall risk assessments with healthcare providers. Home Health Attestation I certify that this patient is under my care and that I, or a physicians after school program assistant working with me, had a face to-face encounter that meets the home health [id number] encounter requirements with this patient. The encounter with the patient was in whole, or in part, for the following medical condition, which is the primary reason for home health care (list medical condition): I certify that, based on my findings, the following services are medically necessary home health services: My clinical findings support the need for the above services because: Further, I certify that my clinical findings support that this patient is homebound (i.e. absences from home require considerable and taxing effort and are for medical reasons or christianity services or infrequently or of short duration when for other reasons) because: Certification for Home Health Services: Based on the above findings, I certify that this patient is confined to the home and needs intermittent care home care, physical therapy and/or speech therapy or continues to need occupational therapy. The patient is under my care, and I have initiated the establishment of the plan of care. This patient will be followed by a physician who will periodically review the plan of care. Total Time Total Time Spent Total Time Spent (In Minutes): I spent a total of 35 minutes coordinating, documenting and providing care for this patient excluding time spent in the performance of separately billed services or time spent by another provider/QHP. Supervising Physician Co-Signing Physician Notes Attending Addendum: Case reviewed with the advanced practitioner. I have personally performed a history and physical examination on the patient. I have reviewed the advanced practitioner's documentation on the date of service referenced in note, and I agree with, and take responsibility for the plan of care. please refer to her notes for full details patient seen and examined, records reviewed by myself as well diagnoses and plan of care as per advanced practitioner's notes I spent a total of 35 minutes coordinating, documenting, and providing care for this patient, excluding time spent in the performance of separately billed services or time spent by another provider/QHP. Mayur Schuster MD
[2024-08-18 12:28] LABS: BUN Creatinine Ratio 19.8 (10-20); Calcium 9.2 mg/dl (8.6-10.3); Creatinine Clr Calc Pharmacy 81.6 ml/min; Potassium 3.6 mmol/L (3.5-5.1)
[2024-08-18 14:50] VITALS: TEMP 98.4; O2SAT 94
[2024-08-18 16:27] VITALS: BP 128/84; PULSE 67
[2024-08-21] MEDS ORDERED: ERGOCALCIFEROL 1250 MCG (50,000 UNITS) CAP PO SCH (09:00)
== END 2024-08-18 18:03 | disposition home health service (06) | DRG 101 ==
LOC: EDINP 11:01 → ED 11:01 → SUATTDRO 16:07 → 3N 18:48